=== PATIENT | female | born 1985 | race African-American/Black ===

== ENCOUNTER 2020-07-08 13:07 | Emergency (ER) | payer MEDICARE, MEDICAID, SELFPAY ==
--- NOTE | ~2020-07-08 | XR_ITS ---
EXAMINATION: XR ankle RT min 3V EXAM DATE: 07/08/2020 13:38 INDICATION: Fell on ice 3 weeks ago, persistent right ankle pain medially. Initial counter. TECHNIQUE: Right ankle frontal, lateral and oblique projections obtained and reviewed. There is no p rior study for comparison. FINDINGS: The right ankle mortise appears intact. There are no acute fractures or dislocations iden tified. There is no subcutaneous gas. The soft tissue is unremarkable. There are no radiopaque fo reign bodies. IMPRESSION: No acute osseous findings. Reviewed, dictated and finalized at location A. POULE FILLER IMPRESSION: No acute osseous findings.
--- NOTE | 2020-07-08 13:17 | ED.GENADULT ---
HPI - General Adult General Chief complaint: Extremity Injury, Lower Stated complaint: right foot injury Time Seen by Provider: 07/08/20 13:17 Source: patient Mode of arrival: ambulatory Limitations: no limitations History of Present Illness HPI narrative: 35-year-old female patient presents to the [facility] with complaints of right foot and ankle pain x3 weeks. Patient states that 3 weeks ago she slipped on the snow and ice and since then she has been having pain to the backside of her right ankle. Patient states has been taking Tylenol for pain but states it has not gotten any better. Denies any numbness or tingling to the toes. Related Data Home Medications Medication Instructions Recorded Confirmed lamotrigine 200 mg PO DAILY 07/08/20 07/08/20 trazodone 150 mg PO HS 07/08/20 07/08/20 Allergies Allergy/AdvReac Type Severity Reaction Status Date / Time No Known Allergies Allergy Unknown Verified 07/08/20 13:13 Review of Systems Review of Systems: Narrative: CONSTITUTIONAL: Denies fever, chills, or sweats. EYES: Denies visual changes, redness, or discharge. ENT: Denies rhinorrhea, congestion, sore throat, or otalgia. CARDIOVASCULAR: Denies chest pain, palpitations, or edema. RESPIRATORY: Denies cough or dyspnea. GASTROINTESTINAL: Denies abdominal pain, nausea, vomiting, or diarrhea. GENITOURINARY: Denies dysuria or hematuria. SKIN: Denies rash or itching. MUSCULOSKELETAL: Denies back pain, joint pain, or myalgia. Positive right foot and ankle pain x3 weeks NEUROLOGIC: Denies headache, numbness, or weakness. PSYCHIATRIC: Denies anxiety or depression. COUNT INCLUDES THE [facility] Past Medical History Medical History (Updated 07/08/20 @ 14:00 by LISSETTE Conteh) Bipolar disorder On disability GERD (gastroesophageal reflux disease) Hypertension Surgical History Surgical History (Updated 07/08/20 @ 13:18 by LISSETTE Conteh) H/O LEEP H/O tubal ligation Comments At the time of my signature I agree with nursing past medical history, surgical, social, and family history. There is no relevant family history pertinent to the presenting complaint. Exam Narrative: Exam Narrative: GENERAL: Well-appearing, well-nourished, and in no acute distress. HEAD: Normocephalic, atraumatic. EYES: PERRLA and EOMI. ENT: Nares clear, no rhinorrhea or epistaxis. Mucous membranes moist. NECK: Supple. No lymphadenopathy CHEST: Clear to auscultation. No respiratory distress. HEART: Regular rate and rhythm. No murmur heard. Normal peripheral pulses. ABDOMEN: Soft, nontender, nondistended, normal active bowel sounds. EXTREMITIES patient is able to bear weight and ambulate but has increased pain to the right ankle. The R ankle is without obvious asymmetry or deformity when compared to the L ankle. Patient can flex/extend, invert/tyesha. No obvious surface trauma, ecchymosis, or soft tissue swelling. No body tenderness to palpation over the medial or lateral malleolus. Anterior talofibular ligament, posterior talofibular ligament, calcaneofibular ligament nontender and without swelling. No tenderness or deformity of the midfoot or over the proximal fifth metatarsal. Patient does have slight tenderness noted over the Achilles tendon. Good DP and posterior tibial pulses and sensation to light touch normal. Talar tilt test is negative for ligament laxity to valgus or vargus stress. Negative anterior draw. Peroneal nerve is intact with strong eversion and plantar flexion. SKIN: Warm, dry, no rash. NEURO: No focal deficits. Alert and oriented x3. Course Reevaluation(s) Reevaluation #1: Reevaluated patient after her x-ray had resulted. Notified her that her x-ray is negative for any acute fractures. Discussed with her this is most likely a sprain which can take a little while to heal fully. Encourage patient to stay off the ankle for a while to help with healing and she can continue taking Tylenol, ibuprofen as needed for pain and encouraged her to elevate
[2020-07-08 13:26] VITALS: BP 150/95; PULSE 96; RESP 16; TEMP 36.2; O2SAT 98
== END 2020-07-08 14:05 | disposition home or self-care (01) ==
PROVIDERS: Emergency Provider Nurse Practitioner Family; PCP Internal Medicine Infectious Disease
DX: S93.401A Sprain of unspecified ligament of right ankle, initial encounter (principal); W00.0XXA Fall on same level due to ice and snow, initial encounter; F31.9 Bipolar disorder, unspecified; K21.9 Gastro-esophageal reflux disease without esophagitis; I10 Essential (primary) hypertension
CPT/HCPCS: 73610; 99213; G0463

== ENCOUNTER 2022-09-09 08:42 | Emergency (ER) | payer MEDICARE, MEDICAID, SELFPAY ==
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
[2022-09-09 08:52] VITALS: BP 126/72; PULSE 92; RESP 16; TEMP 36.7; O2SAT 99
[2022-09-09 08:53] VITALS: BP 126/72; PULSE 92; RESP 16; TEMP 36.7; O2SAT 99
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
== END 2022-09-09 09:22 | disposition home or self-care (01) ==
PROVIDERS: Emergency Provider Nurse Practitioner; PCP Internal Medicine Infectious Disease
DX: S00.83XA Contusion of other part of head, initial encounter (principal); S02.5XXA Fracture of tooth (traumatic), initial encounter for closed fracture; W21.05XA Struck by basketball, initial encounter; F17.290 Nicotine dependence, other tobacco product, uncomplicated; J45.909 Unspecified asthma, uncomplicated; K21.9 Gastro-esophageal reflux disease without esophagitis; I10 Essential (primary) hypertension; F31.9 Bipolar disorder, unspecified
CPT/HCPCS: 70150; 99213; G0463

== ENCOUNTER 2022-10-14 11:26 | Outpatient (CLI) | payer MEDICARE, MEDICAID, SELFPAY ==
--- NOTE | 2022-10-14 11:40 | ECG_ITS ---
Measurements Intervals [place] Rate: 74 P: 46 VA: 190 QRS: 30 QRSD: 100 T: 22 QT: 379 QTc: 422 Interpretive Statements SINUS RHYTHM NO PREVIOUS ECG AVAILABLE FOR COMPARISON Electronically Signed On 10-14-2022 17:07:50 CDT by Saba Perez M.D.
[2022-10-14 12:00] LABS: Hematocrit 43.4 % (37.0-47.0); Mean Corpuscular HGB Conc 32.3 g/dl (32-36); Mean Corpuscular Hemoglobin 30.4 pg (26-34); Mean Corpuscular Volume 94.3 fl (80-100); Mean Platelet Volume 10.1 fl (7.4-10.4); Platelet Count Result 227 k/mm3 (150-375); Red Cell Distribution Width 13.1 % (11.5-14.5); White Blood Count 8.8 K/mm3 (4.5-10.0)
[2022-10-14 12:20] LABS: Anion Gap 8 mmol/L (8-16); Blood Urea Nitrogen 14 mg/dL (7-17); Calcium 9.1 mg/dL (8.4-10.2); Carbon Dioxide 29 mmol/L (22-30); Chloride 100 mmol/L (98-107); Estimated Glomerular Filt Rate > 60; Glucose 99 mg/dL (65-110); Potassium 3.8 mmol/L (3.4-5.0); Sodium 137 mmol/L (137-145)
== END 2022-10-14 11:27 | disposition home or self-care (01) ==
LOC: ANHSURGERY 11:31
PROVIDERS: Anesthesiology; PCP Internal Medicine Infectious Disease; Visit Provider Obstetrics & Gynecology
DX: Z01.818 Encounter for other preprocedural examination (principal); D25.9 Leiomyoma of uterus, unspecified; I10 Essential (primary) hypertension; Z79.899 Other long term (current) drug therapy
CPT/HCPCS: 36415; 80048; 85027; 86850; 86900; 86901; 93005

== ENCOUNTER 2022-10-16 01:45 | Day surgery (SDC) | payer MEDICARE, MEDICAID, SELFPAY ==
[2022-10-08 14:31] VITALS: BMI 34.1
--- NOTE | 2022-10-08 14:36 | PC.NURSE ---
Report to the Outpatient Waiting Room, entrance under the green pavilion located off [facility], at time 6:00 on date 10/16/22. Planned Procedure Time: 7:30. Time changes happen often and if your time is changed the preop area will call you the afternoon before. - You and your visitor will be asked to self-screen and do not enter if you have any COVID symptoms. - A mask is optional within the hospital at this time. Patients may have clear liquids (water, carbonated beverages, clear teas, apple juice) until 3 hours prior to surgery (4:30) with a maximum of 20 ounces. - No food from midnight until time of surgery Take the following medications with a SIP of water the morning of surgery: ARIPIPRAZOLE, GABAPENTIN, LAMOTRIGINE, PAIN PILL IF NEEDED DO NOT STOP ANY OF YOUR OTHER PRESCRIPTION MEDICATIONS PRIOR TO SURGERY?EXCEPT THE FOLLOWING Medications to discontinue per physician: IBUPROFEN Date to take last dose: PER DR. ANGUIANO Please no make-up, nail irish, hairspray, perfume, deodorant, or body powder the day of surgery. No jewelry (including any body piercings) or valuables the day of surgery, leave them at home. Please take a shower or bath the night before, or the morning of, surgery with an antibacterial soap. Wear comfortable, loose fitting clothing. - Jewelry must be removed prior to entering the operating room. Rings and piercings that are not removed may be cut off. - The hospital will not accept responsibility for valuables. - Please leave all valuables, including medications, at home the day of surgery. If you are going home after surgery, a licensed bookmobile driver must drive you home. - NO public transportation without another adult if you receive anesthesia. - We recommend that an adult stay with you for 24 hours following discharge. - We also recommend that you do not drive, make important decision, drink alcoholic beverages, or take any drugs that were not prescribed by your health care provider for at least 24 hours after your discharge time. Follow any additional instructions given to you from your surgeon. If you or anyone in your household have experienced Covid symptoms in the past week, please notify your surgeon or the nurse liaison at the phone number below for possible testing. Telephone instructions given to PT - RADHA CHAHAL and asked if any additional questions and then verbalized understanding. Patient advised to call surgeon office or pre surgery nurse liaison [phone] if any additional questions.
--- NOTE | 2022-10-13 16:21 | PM.IMHP ---
H&P: HPI History of Present Illness Date/Time: 10/13/22 16:21 37-year-old 3 para 2 012 presents with complaints of irregular vaginal bleeding and pelvic pain. She has had a longstanding history of irregular bleeding and had undergone endometrial ablation in the past which had worked nicely for her until the last 10-12 months. Increased bleeding with clotting has recurred and she strongly desires intervention for this. Also ultrasound did show a fibroid uterus and fibroid being approximately 2-3 cm and impinging on the endometrial cavity likely causing the bleeding status post ablation. We have discussed non surgical and non permanent surgical interventions and she does not desire. Ultrasound did show uterus to be at [id number] with 3cm uterine fibroid. Endometrial thickness normal at 6mm. Chief Complaint: vaginal bleeding and pelvic pain Review of Systems Review of Systems: All systems reviewed & are unremarkable except as noted in HPI and below PMFSH Past Medical History Medical History Abnormal Pap smear of cervix 12/2009 ascus hpv negative/06/2008 LEEP- [facility]ARO 05/09/2008 colpo chronic cervicitis 03/2008LGSIL HPV+ 2005 lgsil Asthma Back pain Bipolar disorder On disability Encounter for screening for malignant neoplasm of cervix Facial contusion Fracture of tooth GERD (gastroesophageal reflux disease) Hypertension PCR DNA positive for HSV1 Trichomonas vaginalis infection Vaginal delivery 12/10/07 09/30/12 demise at 18w--hydrops 12/25/14 Surgical History Surgical History H/O LEEP 06/13/08 AMPARO I History of colposcopy with cervical biopsy 11/01/07 no bx taken--benign 05/08/08 benign History of gynecologic surgery (08/28/16) hscope d&c/Novasure ablation/tubal ligation--menometrorrhagia, dysmenorrhea, undesired fertility--acute chronic endometritis History of tubal ligation (08/28/16) Family History Family History Father Diabetes mellitus Heart disease Hypertension Grandparent Diabetes mellitus paternal grandmother Other Diabetes mellitus paternal aunt Social History Social History Years smoked: 25 Smoking status: Current every day smoker Tobacco type: e-cigarettes/vaping Alcohol intake: current Alcohol use details: VERY RARE Substance use: never Substance use type: does not use Living arrangements: with family Additional living arrangements comments: CHILDREN Occupation/Education: unemployed Additional occupation/education comments: disablility Gender identity (if verbalized by the patient): Female Sexual Orientation (if Verbalized by the Patient): Straight or Heterosexual Spiritual care concerns: No Meds Home Medications and Allergies Home Medications Medication Instructions Recorded Confirmed Type lamotrigine 100 mg tablet,extended 200 mg PO DAILY 07/08/20 10/08/22 History release 24 hr trazodone 50 mg tablet 150 mg PO HS 07/08/20 10/08/22 History gabapentin 300 mg capsule 300 mg PO TID 05/27/22 10/08/22 History hydrochlorothiazide 25 mg tablet 25 mg PO DAILY 05/27/22 10/08/22 History progesterone micronized 100 mg 100 mg PO QHS #30 caps 07/24/22 10/08/22 Rx capsule (Prometrium) aripiprazole 5 mg tablet 5 mg PO DAILY 08/26/22 10/08/22 History hydrocodone 10 mg-acetaminophen 0.5 - 1 tablet PO TID PRN pain #12 09/09/22 10/08/22 Rx 325 mg tablet tabs ibuprofen 800 mg tablet 800 mg PO TID PRN pain #15 tabs 09/09/22 10/08/22 Rx Allergies Allergy/AdvReac Type Severity Reaction Status Date / Time No Known Allergies Allergy Unknown Verified 10/08/22 14:29 Exam Const: General: cooperative and healthy appearing Resp: Effort & Inspection: normal respiratory effort Auscultation: cl
[2022-10-16] VITALS (10 sets, daily range): BP systolic 117–137; BP diastolic 71–89; PULSE 78–93; RESP 14–18; TEMP 36.4–37.1; O2SAT 96–100
[2022-10-16] MEDS: ACETAMINOPHEN 500 MG TABLET 1000 MG PO (06:36)
[2022-10-16] MEDS: KETOROLAC 15 MG/ML VIAL (*BKC) IV PUSH (06:51)
[2022-10-16] MEDS: LACTATED RINGERS 1,000 ML 30 ML IV CONT ×2 (07:00→10:19)
--- NOTE | 2022-10-16 07:22 | WPDANESEPPF ---
Anes - Initial Pre Proc Eval Procedure: Operation Date: 10/16/22 08:30 Proposed Procedures p Robotic Assisted Total Laparoscopic Hysterectomy with Bilateral Salpingectomy - Jose Shahid MD Date/Time: 10/16/22 07:22 Surgeon: Jose Shahid MD Pre Op Diagnosis: Uterine Fibroid Patient Data Age: 37 Gender: F Height: 1.65 m Weight: 87 kg Last Vital Signs Temp 37.0 C 10/16/22 06:15 Pulse 78 10/16/22 06:15 Resp 16 10/16/22 06:15 BP 126/82 10/16/22 06:15 Pulse Ox 100 10/16/22 06:15 O2 Del Method Room Air 10/16/22 06:15 Allergies Allergy/AdvReac Type Severity Reaction Status Date / Time No Known Allergies Allergy Unknown Verified 10/16/22 06:37 Home Medications Medication Instructions Recorded Confirmed Type lamotrigine 100 mg tablet,extended 200 mg PO DAILY 07/08/20 10/16/22 History release 24 hr trazodone 50 mg tablet 150 mg PO HS 07/08/20 10/16/22 History gabapentin 300 mg capsule 300 mg PO TID 05/27/22 10/16/22 History hydrochlorothiazide 25 mg tablet 25 mg PO DAILY 05/27/22 10/16/22 History progesterone micronized 100 mg 100 mg PO QHS #30 caps 07/24/22 10/16/22 Rx capsule (Prometrium) aripiprazole 5 mg tablet 5 mg PO DAILY 08/26/22 10/16/22 History ibuprofen 800 mg tablet 800 mg PO TID PRN pain #15 tabs 09/09/22 10/16/22 Rx Patient hx anesthesia problems: none Family hx anesthesia problems: none Results Review: All pre-operative results and documents have been reviewed as part of the pre-operative evaluation. [facility] Past Medical History Medical History Abnormal Pap smear of cervix 12/2009 ascus hpv negative/06/2008 LEEP- LGSIL AMPARO 05/09/2008 colpo chronic cervicitis 03/2008LGSIL HPV+ 2005 lgsil Asthma Back pain Bipolar disorder On disability Encounter for screening for malignant neoplasm of cervix Facial contusion Fracture of tooth GERD (gastroesophageal reflux disease) Hypertension PCR DNA positive for HSV1 Trichomonas vaginalis infection Vaginal delivery 12/10/07 09/30/12 demise at 18w--hydrops 12/25/14 Surgical History Surgical History H/O LEEP 06/13/08 AMPARO I History of colposcopy with cervical biopsy 11/01/07 no bx taken--benign 05/08/08 benign History of gynecologic surgery (08/28/16) hscope d&c/Novasure ablation/tubal ligation--menometrorrhagia, dysmenorrhea, undesired fertility--acute chronic endometritis History of tubal ligation (08/28/16) Family History Family History Father Diabetes mellitus Heart disease Hypertension Grandparent Diabetes mellitus paternal grandmother Other Diabetes mellitus paternal aunt Social History Social History Years smoked: 25 Smoking status: Current every day smoker Tobacco type: e-cigarettes/vaping Alcohol intake: current Alcohol use details: VERY RARE Substance use: never Substance use type: does not use Living arrangements: with family Additional living arrangements comments: CHILDREN Occupation/Education: unemployed Additional occupation/education comments: disablility Gender identity (if verbalized by the patient): Female Sexual Orientation (if Verbalized by the Patient): Straight or Heterosexual Spiritual care concerns: No Anes - Eval Final PreProcedure Day of Procedure 10/16/22 07:22 Patient weight: obese Heart: regular rate and rhythm Lungs: clear to auscultation and normal air movement Airway: Mallampati scale class II Neurological: alert and oriented Last oral intake: >/= 8 hours ASA classification: III Emergent: no Anesthetic plan: proceed Anesthesia type and monitoring: general ETT Results Review: All pre-operative results and documents have been reviewed as part of the pre-operative evalu
--- NOTE | 2022-10-16 07:27 | WPDHPUPDATE1 ---
History and Physical Update Update Date/Time: 10/16/22 07:27 History and Physical has been reviewed, including an updated exam of the patient. There are NO changes in the patient's condition. Risks, benefits, and alternatives have been discussed and questions answered. Patient agrees to proceed with procedure.
[2022-10-16] MEDS: ceFAZolin 2 GM/D5W 50 ML 2 GM/50 ML BAG IVPB (08:26)
--- NOTE | 2022-10-16 10:06 | W.PM.PROC2 ---
Procedure Note - Detailed Date of Procedure 10/16/22 Pre-op Diagnosis 1. Pelvic pain 2. Uterine fibroid 3. History of endometrial ablation Post-op Diagnosis Same Procedure Performed 1. Robotic assisted total laparoscopic hysterectomy 2. Bilateral salpingectomy Surgeon Jose Shahid MD Anesthesia General Findings Enlarged globular uterus with evidence of prior partial salpingectomy. Ovaries without abnormality. Description of Procedure Patient prepped and draped usual sterile manner for this procedure. Cervical instruments were placed for uterine mobility throughout the case. Attention was then placed the abdominal wall were trocar sites were marked and placed under direct visualization. These trocars were then attached to the [employer] system and instruments were placed under direct visualization. Surgeon then moved to the console and findings as noted above. Mesial salpinx bilaterally cauterized and cut and tubes removed without difficulty. Utero-ovarian ligaments were cauterized and cut and the round ligament was then cauterized and cut. Bladder flap was developed without difficulty. Posterior leaf the broad ligament was also incised to skeletonized the uterine vessels. Uterine vessels then cauterized and cut and transected. At this point once the blood flow to the uterus had been taken down the anterior colpotomy incision was made this was carried circumferentially around the cervix to separate the cervix from the vaginal cuff. Uterus was delivered into the vagina without difficulty. Cuff was then closed using V lock suture from the right angle to midline and left angle midline with good approximation hemostasis noted. Irrigation was undertaken there was no significant bleeding. Helen was placed over all the surgical edges and at this point the gas was allowed to escape, trocars removed, and incisions approximated using 4-0 Monocryl. Patient was then sent to recovery room in stable condition. Estimated Blood Loss 100 Drains No Packing No Pathology Yes Complications No immediate complications Condition Stable Disposition PACU [facility] Billing Surgery - Charge Forward: Surgery Billing
[2022-10-16] MEDS: fentaNYL CITRATE INJ (*CRX) 100 MCG/2 ML VIAL 25 MCG IV PUSH ×8 (10:20→10:34)
--- NOTE | 2022-10-16 11:00 | PC.NURSE ---
This patient, Ronda Morris, was received from PACU via bed on 10/16/22 at 1100. Patient/family oriented to unit policies and routines.
[2022-10-16] MEDS: DEXTROSE 5%/0.45% SOD CHL 1,000 ML 125 ML IV CONT (12:02)
[2022-10-16] MEDS: IBUPROFEN 600 MG TABLET PO ×2 (13:28→20:06)
[2022-10-16] MEDS: GABAPENTIN 300 MG CAPSULE PO ×2 (13:28→20:06)
[2022-10-16] MEDS: HYDROcodone/acetaminophen (*CRX) 5-325 MG TABLET 1 TAB PO (20:06)
[2022-10-16] MEDS: ARIPiprazole 5 MG TABLET PO (22:08)
[2022-10-16] MEDS: lamoTRIgine 100 MG TABLET PO (22:08)
[2022-10-16] MEDS: traZODone HCL 50 MG TABLET 150 MG PO (22:08)
[2022-10-17] MEDS: IBUPROFEN 600 MG TABLET PO (05:13)
[2022-10-17 05:15] VITALS: BP 105/69; PULSE 69; RESP 18; TEMP 36.5
[2022-10-17 05:57] LABS: Basophils Percent Auto 0.1 % (0.2-1.2); Eosinophils Percent Auto 0.3 % (0-4.4); Hematocrit 38.5 % (37.0-47.0); Hemoglobin 12.8 g/dL (12.0-15.0); Immature Granulocyte Absolute 0.05 K/mm3 (0.00-0.031); Immature Granulocyte Percent A 0.4 % (0-0.5); Lymphocytes Absolute Auto 3.14 K/mm3 (0.9-3.2); Lymphocytes Percent Auto 22.4 % (18.3-44.2); Mean Corpuscular HGB Conc 33.2 g/dl (32-36); Mean Corpuscular Hemoglobin 31.1 pg (26-34); Mean Corpuscular Volume 93.7 fl (80-100); Mean Platelet Volume 10.4 fl (7.4-10.4); Monocytes Percent Auto 7.4 % (2.6-8.5); Neutrophils Absolute Auto 9.7 K/mm3 (1.3-6.7); Neutrophils Percent Auto 69.4 % (45.5-73.1); Platelet Count Result 228 k/mm3 (150-375); Red Blood Count 4.11 M/mm3 (4.2-5.4); Red Cell Distribution Width 13.2 % (11.5-14.5)
[2022-10-17 08:00] VITALS: BP 100/60; PULSE 88; RESP 18; TEMP 37.1; O2SAT 100
[2022-10-17] MEDS: lamoTRIgine 100 MG TABLET PO (08:45)
[2022-10-17] MEDS: GABAPENTIN 300 MG CAPSULE PO (08:45)
[2022-10-17] MEDS: SIMETHICONE 80 MG TAB.CHEW PO (08:45)
[2022-10-17] MEDS: ACETAMINOPHEN 325 MG TABLET 650 MG PO (08:45)
[2022-10-17] MEDS: hydroCHLOROthiazide 25 MG TABLET PO (08:45)
--- NOTE | 2022-10-17 12:57 | P.PNAN_ITS ---
Anes - Prog Note Post-Op Date/Time: 10/17/22 12:57 Vital Signs: Last Vital Signs Temp 37.1 C 10/17/22 08:00 Pulse 88 10/17/22 08:00 Resp 18 10/17/22 08:00 BP 100/60 10/17/22 08:00 Pulse Ox 100 10/17/22 08:00 O2 Del Method Room Air 10/16/22 10:50 O2 Flow Rate 10 10/16/22 10:15 Pain Score (VAS): 1 I/O: Intake & Output 10/16/22 10/17/22 10/17/22 23:59 07:59 15:59 Intake Total 740 Output Total 800 Balance -60 Laboratory Tests 10/17/22 05:12 10/17/22 05:12 WBC 14.0 H RBC 4.11 L Hgb 12.8 Hct 38.5 MCV 93.7 MCH 31.1 MCHC 33.2 RDW 13.2 Plt Count 228 MPV 10.4 Immature Gran % (Auto) 0.4 Neut % (Auto) 69.4 Lymph % (Auto) 22.4 Lanier % (Auto) 7.4 Eos % (Auto) 0.3 Baso % (Auto) 0.1 L Lymph # (Auto) 3.14 Lanier # (Auto) 1.0 H Eos # (Auto) 0.0 Baso # (Auto) 0.0 Abs Immat Gran (auto) 0.05 H Absolute Neuts (auto) 9.7 H Absolute Nucleated RBC 0.0 Nucleated RBC % 0.0 Patient Feedback: Patient satisfied with anesthetic care.
== END 2022-10-17 10:15 | disposition home or self-care (01) ==
LOC: ANHSURGERY 05:58 → ANHOB2 17:34
PROVIDERS: PCP Internal Medicine Infectious Disease; Visit Provider Obstetrics & Gynecology
PROC: (CPT 58571; principal; 2022-10-16 08:30)
DX: D25.0 Submucous leiomyoma of uterus (principal); N87.9 Dysplasia of cervix uteri, unspecified; N83.8 Other noninflammatory disorders of ovary, fallopian tube and broad ligament; N80.203 Endometriosis of bilateral fallopian tubes, unspecified depth; R10.2 Pelvic and perineal pain; N92.6 Irregular menstruation, unspecified; I10 Essential (primary) hypertension; J45.909 Unspecified asthma, uncomplicated; F31.9 Bipolar disorder, unspecified; K21.9 Gastro-esophageal reflux disease without esophagitis; B00.9 Herpesviral infection, unspecified; F17.290 Nicotine dependence, other tobacco product, uncomplicated
CPT/HCPCS: 58571; S2900; 36415; 85025; 88307; A9270; J0690; J1100; J1170; J1885; J2250; J2405; J2704; J3010; J7030; J7120

== ENCOUNTER 2023-05-27 08:27 | Emergency (ER) | payer MEDICARE, MEDICAID, SELFPAY ==
--- NOTE | ~2023-05-27 | XR_ITS ---
XR ankle LT min 3V 05/27/2023 08:47 INDICATION: Left ankle pain PROCEDURE: 4 views left ankle COMPARISON: No prior studies for comparison. FINDINGS: Fracture, dislocation or subluxation is not identified. The soft tissues appear within norm al limits. No foreign bodies are identified. IMPRESSION: 1: NO ACUTE BONE OR JOINT ABNORMALITY IDENTIFIED. Reviewed, dictated and finalized at location B. TECHNICIAN
[2023-05-27 08:35] VITALS: BP 123/77; PULSE 81; RESP 16; TEMP 36.9; O2SAT 100
--- NOTE | 2023-05-27 08:37 | ED.LOWEXIN ---
HPI - Extremity Injury (Lower) General Chief Complaint: Extremity Injury, Lower Stated Complaint: left ankle/foot injury Time Seen by Provider: 05/27/23 08:38 Source: patient Mode of arrival: ambulatory Limitations: no limitations History of Present Illness HPI Narrative: 38 yo F presents with pain to L ankle for 2 days. Slipped and fell on ice. Fell onto L side, no other complaints of pain. Ambulatory with mild limp. ROM and distal NV intact. All systems reviewed and negative except as noted above. Related Data Home Medications Medication Instructions Recorded Confirmed lamotrigine 100 mg tablet,extended 200 mg PO DAILY 07/08/20 05/27/23 release 24 hr trazodone 50 mg tablet 50 mg PO HS 07/08/20 05/27/23 gabapentin 300 mg capsule 300 mg PO TID 05/27/22 05/27/23 hydrochlorothiazide 25 mg tablet 25 mg PO DAILY 05/27/22 05/27/23 aripiprazole 5 mg tablet 5 mg PO DAILY 08/26/22 05/27/23 azelastine 137 mcg (0.1 %) nasal 2 spray intranasal BID 05/27/23 05/27/23 spray aerosol Allergies Allergy/AdvReac Type Severity Reaction Status Date / Time No Known Allergies Allergy Unknown Verified 05/27/23 08:43 Review of Systems Review of Systems: CONSTITUTIONAL: Denies fever, chills, or sweats. EYES: Denies visual changes, redness, or discharge. ENT: Denies rhinorrhea, congestion, sore throat, or otalgia. CARDIOVASCULAR: Denies chest pain, palpitations, or edema. RESPIRATORY: Denies cough or dyspnea. GASTROINTESTINAL: Denies abdominal pain, nausea, vomiting, or diarrhea. GENITOURINARY: Denies dysuria or hematuria. SKIN: Denies rash or itching. MUSCULOSKELETAL: Reports pain to L ankle NEUROLOGIC: Denies headache, numbness, or weakness. PSYCHIATRIC: Denies anxiety or depression. All other systems reviewed are negative, except as documented in HPI. 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 lgsil Asthma Back pain Bipolar disorder On disability Encounter for screening for malignant neoplasm of cervix Facial contusion Fracture of tooth GERD (gastroesophageal reflux disease) Hypertension PCR DNA positive for HSV1 Trichomonas vaginalis infection Vaginal delivery 12/10/07 09/30/12 demise at 18w--hydrops 12/25/14 Surgical History Surgical History H/O LEEP 06/13/08 AMPARO I History of colposcopy with cervical biopsy 11/01/07 no bx taken--benign 05/08/08 benign History of gynecologic surgery (08/28/16) hscope d&c/Novasure ablation/tubal ligation--menometrorrhagia, dysmenorrhea, undesired fertility--acute chronic endometritis History of robot-assisted laparoscopic hysterectomy (10/16/22) Robotic assisted total laparoscopic hysterectomy Bilateral salpingectomy History of tubal ligation (08/28/16) Family History Family History Father Diabetes mellitus Heart disease Hypertension Grandparent Diabetes mellitus paternal grandmother Other Diabetes mellitus paternal aunt Social History Social History Years smoked: 25 Smoking status: Current every day smoker Tobacco type: e-cigarettes/vaping Alcohol intake: current Alcohol use details: VERY RARE Substance use: never Substance use type: does not use Living arrangements: with family Additional living arrangements comments: CHILDREN Occupation/Education: unemployed Additional occupation/education comments: disablility Gender identity (if verbalized by the patient): Female Sexual Orientation (if Verbalized by the Patient): Straight or Heterosexual Spiritual care concerns: No Comments At time of signature, agree with nursing past medical, surgical, so
== END 2023-05-27 09:11 | disposition home or self-care (01) ==
PROVIDERS: Emergency Provider Nurse Practitioner Family; PCP Internal Medicine Infectious Disease
DX: S93.402A Sprain of unspecified ligament of left ankle, initial encounter (principal); W00.0XXA Fall on same level due to ice and snow, initial encounter; F17.290 Nicotine dependence, other tobacco product, uncomplicated; J45.909 Unspecified asthma, uncomplicated; K21.9 Gastro-esophageal reflux disease without esophagitis; I10 Essential (primary) hypertension
CPT/HCPCS: 73610; 99213; G0463

== ENCOUNTER 2024-06-04 17:08 | Emergency (ER) | payer MEDICARE, MEDICAID, SELFPAY ==
--- NOTE | ~2024-06-04 | XR_ITS ---
EXAM: XR wrist LT min 3V DATE: 06/04/2024 18:20 HISTORY: injury bent backward . COMPARISON: None available. FINDINGS: Normal mineralization. No fracture or dislocation. No lytic or blastic lesion. Joint space s are maintained. No erosion or periosteal change. Soft tissues within normal limits. IMPRESSION: No acute osseous finding in the left wrist. Reviewed, dictated and finalized at location K. GENCY MANAGER
--- OUTSIDE RECORDS SUMMARY | 2024-06-04 17:12 | XMS_ITS | Data Portability ---
Author Organization [facility] JOSESandra Contreras Address [address] [place] [address] Care Team Providers Care Terrazzo Laborer Name Role Phone [facility] Psychiatrist OSIEL ANGUIANO Software Analyst Assessment No assessment recorded. Plan of Treatment Reminders Order Date Submit Date Provider Last Modified By Organization Details Last Modified Time Details Appointments ANY 15 2024 09:15A Lianne Still MD Not available Not available Not available Lab TSH, ultra-s ensitiv e, serum 2021 022 [facility], [facility] [address], [place], [address], 03/13/2022 06:12:25 bun/cre atinine , ratio, serum 2021 022 [facility], [facility], [address], [place], [address], 03/13/2022 06:12:26 HbA1c (hemogl obin A1c), blood 2022 023 [facility], Hay[address], [address], [place], [address], 09/09/2022 06:15:12 CBC 2022 023 [facility], Hayley [address]ren[address], [address], [place], [address], 09/08/2022 19:08:15 basic metabol ic 1998 panel, serum or plasma 2022 023 [facility], [address] [place] [address], [address], [place], [address], 09/15/2022 10:55:54 HbA1c (hemogl obin A1c), blood 2022 023 [facility], [address] [place] [address], [address], [place], [address], 03/26/2023 08:19:22 potassi um, serum or plasma 2022 023 [facility], [address] [place] [address], [address], [place], [address], 03/26/2023 06:17:23 SARS CoV 2 RNA (COVID- 19), QL, vegetable loader-PCR , respira tory specime n [address] [facility], [address] [place], [address], 03/25/2023 12:45:22 TSH, ultra-s ensitiv e, serum 2022 023 [facility], [address] [place] [address], [address], [place], [address], 03/26/2023 08:19:23 HbA1c (hemogl obin A1c), blood 2023 024 [facility], [address] [place] [address], [address], [place], [address], 06/03/2024 15:51:54 urinaly sis macro (dipsti ck) panel, urine 2023 024 [facility], [address] [facility], [address], [place], [address], 06/03/2024 15:51:54 CMP, serum or plasma 2023 024 [facility], [address] [facility], [address], [place], [address], 05/24/2024 15:19:19 lipid panel, serum 2023 024 [facility], [address], [address], [place], [address], 2024 14:06:54 CBC w/ auto diff 2023 024 [facility], [address] [place] [address], [address], [place], [address], 2024 14:06:55 TSH, ultra-s ensitiv e, serum 2023 024 [facility], [address] [place] [address], [address], [place], [address], 06/03/2024 15:51:54 Referral nutriti onist/d ietitia n referra l 2021 022 [facility] Nutrition/ Securities Counselor, [address] [place], [address], 09/08/2022 09:59:50 nutriti onist/d ietitia n referra l - Pre-DM, weight gain, BMI 38.8 2023 024 [facility] Healthcare Painter Hand Nutrition Dietitian, [address] [place] [address], [address], 05/30/2024 15:36:05 sleep medicin e referra l 2023 024 [facility], [address] [facility], [place], [address], 05/30/2024 15:36:44 Procedures None recorde d. Surgeries None recorde d. Imaging None recorde d. Medication Orders hydroch lorothi azide 25 mg tablet [address] [id number], [address] , [place], [place], [id number], 09/08/2022 10:38:09 azelast ine 137 mcg (0.1 %) nasal spray 2022 023 [id number], [address] , [place], [place], [id number], 03/25/2023 12:49:52 Patient TargetsNo targets recorded. Patient Instructions Encounter Date Encounter Id Patient Instructions Last Modified By Organization Details Last Modified Time 03/12/2022 [id number] prediabetes: car e instructions oajao Not available 03/12/2022 10:01:40 Low fat, low CHO diet Avoid soda and sugary drinks Labs Multi Purpose Machine Operator for Pap (Scheduled) Hand Inspector Follow up in 6 months and PRN oajao Not available 03/12/2022 11:56:01 09/08/2022 [id number] prediabetes: car e instructions oajao Not available 09/08/2022 10:32:19 Labs Follow up i n 6 months and PRN oajao Not available 09/08/2022 10:38:09 11/13/2022 [id number] prediabetes: car e instructions oajao Not available 11/13/2022 10:58:36 Follow up in 6 months and PRN Hand Inspector (Declined) DM diet oajao Not available 11/13/2022 11:08:58 03/25/2023 [id number] influenza (flu) vaccine: care instructions oajao Not available 03/25/2023 14:06:49 upper respirator y infection (cold): care instructions oajao Not available 03/25/2023 12:26:09 learning about mood disorders oajao Not available 03/25/2023 12:29:54 body mass index: care instructions oajao Not available 03/25/2023 12:52:45 learning about healthy weight oajao Not available 03/25/2023 12:52:45 Azelastine NS Labs Follow up in 6 months and PRN oajao Not available 03/25/2023 12:31:05 03/30/2024 [id number] snoring: care instructions oajao Not available 03/30/2024 10:16:01 Labs Nutritionis t close to her in [place], please Follow up in 6 months and PRN oajao Not available 03/30/2024 10:15:53 Reason for Referral Hand Inspector/dietitian Refer ral for Impaired fasting glycemia Referring Physician: Kirk Still, Internal Medicine, Encounter Date: 03/12/2022 Hand Inspector/dietitian Refer ral for Impaired fasting glycemia Pre-DM, weight gain, BMI 38.8 Pre-DM, weight gain, BMI 38.8 Referring Physician: Kirk Still, Internal Medicine, Encounter Date: 03/30/2024 Sleep Medicine Referral for Snoring Snorer with HTN and an Independence score of 13 Referring Physician: Kirk Still, Internal Medicine, Encounter Date: 03/30/2024 Results Created Date Observation Date Name Description Value Unit Range Abnormal Flag Note LastModifiedBy Organization Detail LastModifiedTime 03/12/2003/13/2022 TSH TSH 1.150 uIU/m L 0.450- 4.500 Not Available [facility] ([facility]) [address] [place], [address], 03/13/2022 06:12:25 03/12/2003/13/2022 BUN+C REAT BUN 8 mg/dL 6-20 Not Available [facility] ([facility]) [address] [facility], [place], [address], 03/13/2022 06:12:25 11/09/20 22 03/13/2022 BUN+C REAT creatinine 0.89 mg/dL 0.57-1 .00 Not Available [facility] ([facility]) [address] [facility], [place], [address], 03/13/2022 06:12:25 03/12/20 22 03/13/2022 BUN+C REAT eGFR 87 mL/mi n/1.7 3 >59 Not Available [facility] ([facility]) [address] [facility], [place], [address], 03/13/2022 06:12:25 03/12/20 22 03/13/2022 BUN+C REAT BUN/creatini ne ratio 9 9-23 Not Available [facility] ([facility]) [address] [facility], [place], [address], 03/13/2022 06:12:25 09/09/19 23 09/08/2022 BASIC METAB OLIC PANEL (7) glucose 102 mg/dL 65-99 above high normal Not Available [facility] [address] [place], [address], 09/08/2022 19:08:15 09/09/19 23 09/08/2022 BASIC METAB OLIC PANEL (7) BUN 10 mg/dL 8-26 Not Available [facility] [address] [place], [address], 09/08/2022 19:08:15 09/09/19 23 09/08/2022 BASIC METAB OLIC PANEL (7) creatinine 1.03 mg/dL 0.50-1 .40 Not Available [facility] [address] [place], [address], 09/08/2022 19:08:15 09/09/19 23 09/08/2022 BASIC METAB OLIC PANEL (7) eGFR 72 mL/mi n/1.7 3 >=60 Not Available [facility] [address] [place], [address], 09/08/2022 19:08:15 09/09/19 23 09/08/2022 BASIC METAB OLIC PANEL (7) BUN/creatini ne ratio 9.7 Not Available [facility] Department [address] [place], [address], 09/08/2022 19:08:15 09/09/19 23 09/08/2022 BASIC METAB OLIC PANEL (7) sodium 139.0 mmol/ L 136.0- 144.0 Not Available [facility] [address] [place], [address], 09/08/2022 19:08:15 09/09/19 23 09/08/2022 BASIC METAB OLIC PANEL (7) potassium 4.0 mmol/ L 3.5-5. 3 Not Available [facility] [address] [place], [address], 09/08/2022 19:08:15 09/09/19 23 09/08/2022 BASIC METAB OLIC PANEL (7) chloride 98 mmol/ l 101-11 1 below low normal Not Available [facility] [address] [place], [address], 09/08/2022 19:08:15 09/09/19 23 09/08/2022 BASIC METAB OLIC PANEL (7) carbon dioxide, total 28.9 mmol/ L 21.0-3 2.0 Not Available [facility] [address] [place], [address], 09/08/2022 19:08:15 09/09/19 23 09/08/2022 CBC, PLATE LET, NO DIFFE RENTI AL WBC 11.8 K/uL 3.4-10 .8 above high normal Not Available [facility] [address] [place], [address], 09/08/2022 19:08:15 09/09/19 23 09/08/2022 CBC, PLATE LET, NO DIFFE RENTI AL RBC 4.8 M/uL 4.2-5. 4 Not Available [facility] [address] [place], [address], 09/08/2022 19:08:15 09/09/1909/08/2022 CBC, PLATE LET, NO DIFFE RENTI AL hemoglobin 14.4 g/dL 11.5-1 5.5 Not Available [facility] [address] [place], [address], 09/08/2022 19:08:15 09/09/1909/08/2022 CBC, PLATE LET, NO DIFFE RENTI AL hematocrit 44.8 % 36.0-4 8.0 Not Available [facility] [address] [place], [address], 09/08/2022 19:08:15 09/09/1909/08/2022 CBC, PLATE LET, NO DIFFE RENTI AL MCV 93 fL 80-95 Not Available [facility] [address] [place], [address], 09/08/2022 19:08:15 09/09/1909/08/2022 CBC, PLATE LET, NO DIFFE RENTI AL MCH 30 pg 27-32 Not Available [facility] [address] [place], [address], 09/08/2022 19:08:15 09/09/1909/08/2022 CBC, PLATE LET, NO DIFFE RENTI AL MCHC 32 g/dL 32-36 Not Available [facility] [address] [place], [address], 09/08/2022 19:08:15 09/09/1909/08/2022 CBC, PLATE LET, NO DIFFE RENTI AL RDW 12.6 % 11.5-1 4.5 Not Available [facility] [address] [place], [address], 09/08/2022 19:08:15 09/09/19 23 09/08/2022 CBC, PLATE LET, NO DIFFE RENTI AL platelets 253 K/uL 155-37 9 MPV 10.8 FL 8.9-1 2.7 N Not Available [facility] [address] [place], [address], 09/08/2022 19:08:15 09/09/19 23 09/08/2022 CBC, PLATE LET, NO DIFFE RENTI AL NRBC 0 % Not Available [facility] [address] [place], [address], 09/08/2022 19:08:15 09/09/1909/08/2022 HEMOG LOBIN A1C hemoglobin A1C 6.2 % 4.8-5. 6 above high normal Predi abete s: 5.7 - 6.4 Diabe tyra: >6.4 Glyce ramses contr ol for adult s with diabe tyra: <7.0 Not Available [facility] ([facility]) [address] [place], [address], 09/09/2022 06:15:12 03/25/2003/26/2023 POTAS SIUM potassium 3.7 mmol/ L 3.5-5. 2 Not Available [facility] ([facility]) [address] [place], [address], 03/26/2023 06:17:23 03/25/20 23 03/26/2023 HEMOG LOBIN A1C hemoglobin A1C 6.4 % 4.8-5. 6 above high normal Predi abete s: 5.7 - 6.4 Diabe tyra: >6.4 Glyce ramses contr ol for adult s with diabe tyra: <7.0 Not Available [facility] ([facility]) [address] [place], [address], 03/26/2023 08:19:22 03/25/20 23 03/26/2023 TSH TSH 1.050 uIU/m L 0.450- 4.500 Not Available [facility] ([facility]) [address], [place], [address], 03/26/2023 08:19:23 09/10/19 23 09/09/2022 XR, facia l bones No observ ation record ed. [facility] [address], [place], [address], 11/13/2022 10:54:53 05/27/19 24 05/27/2023 XR, ankle No observ ation record ed. [facility] [address], [place], [address], 03/30/2024 10:01:27 Result Notes None recorded. 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 504955443 Active 2017 Kirk Still MD Attn: Maynor husain,[address] [place], [address], [place] [facility] 2 09:47:43 Low back pain 403900630 Active 2017 Kirk Still MD Attn: Maynor husain,[address] [place], [address], [facility] 0 15:46:41 Influenza vaccination declined 883877721 Active 2017 Kirk Still MD Attn: Maynor husain,[address] [place], [address], [place] [facility] 0 15:46:41 Nicotine dependence 60888988 Active 2018 Kirk Still MD Attn: Marcusarianna husain,[address] [place] [address], [place], [address], [place] [facility] 0 15:46:41 SARS-CoV-2 mRNA vaccine declined 5017959899 Active 2021 Kirk Still MD Attn: Maynor lisha,[address] [facility], [place], [address], [place] [facility] 2 10:09:14 Impaired fasting glycemia 851552176 Active 2021 Kirk Still MD Attn: Maynor lisha,[address] [place] [address], [place], [address], [place] [facility] 2 10:02:03 Disorder of lipid metabolism 319931427 Active 2021 Kirk Still MD Attn: Maynor lisha,[address] [facility], [place], [address], [place] [facility] 2 10:02:11 Degeneration of lumbar intervertebra l disc 41066658 Active 2021 Kirk Still MD Attn: Maynor lisha,[address] [place] [address], [place], [address], [place] [facility] 2 10:04:44 Family history of diabetes mellitus 571771175 Active 2021 Kirk Still MD Attn: Maynor husain,[address] [facility], [place], [address], [place] [facility] 2 10:12:27 Benign essential hypertension 9301440 Active 2022 Kirk Still MD Attn: Maynor husain,[address] [place] [address], [place], [address], [place] [facility] 3 10:37:23 History of total hysterectomy 974186209 Active 2022 Kirk Still MD Attn: Maynor husain,[address] [facility], [place], [address], [place] [facility] 3 11:09:31 Snoring 04921072 Active 2023 Kirk Still MD Attn: Maynor husain,[address] [facility], [place], [address], [place] [facility] 4 10:16:00 Elevated blood-pressur e reading without diagnosis of hypertension 645920407 Active Kirk Still MD Attn: Maynor husain,[address] [facility], [place], [address], [place] [facility] 0 15:46:41 Tobacco user 052370584 Active Kirk Still MD Attn: Maynor husain,[address] [facility], [place], [address], [place] [facility] 0 15:46:41 Bipolar disorder 71898986 Active Kirk Still MD Attn: Maynor husain,[address] [facility], [place], [address], [place] [facility] 0 15:46:41 Laboratory test result abnormal 613880324 Active Kirk Still MD Attn: Maynor husain,[address] [facility], [place], [address], [place] [facility] 0 15:46:41 Problem Notes None recorded. Procedures Surgical History Date Name Laterality Status Provider Name and Address Organization Details Recorded Time 7 Tubal Ligation completed Robina Rose [place] - [facility] 10/24/2016 16:30:05 Imaging Results Imaging Date Name Status LastModified by Organ atreplaced by [facility] Details LastModified Time 09/09/2022 XR, facial bones completed dejuan Leblanc [address] [place], [address], 11/13/2022 10:54:53 05/27/2023 XR, ankle completed [facility] [address] [facility] [address], [place], [address], 03/30/2024 10:01:27 Procedure Notes None recorded. Medical Equipment None Reported. Allergies No known drug allergies Medications Name Sig Start Date Stop Date Status Note LastModified by Organization Details LastModified Time carisopro dol 350 mg tablet TAKE 1 TABLET BY MOUTH THREE TIMES DAILY 03/12 completed Not Available Not Available Not Available cyclobenz aprine 10 mg tablet 10/24 completed Not Available Not Available Not Available amoxicill in 500 mg capsule 02/16 completed Not Available Not Available Not Available methocarb fadi 500 mg tablet 03/30 completed Not Available Not Available Not Available azelastin e 0.05 % eye drops INSTILL 1 DROP INTO AFFECTED EYE(S) BY OPHTHALM IC ROUTE 2 TIMES PER DAY (L. eye) 02/16 completed Not Available Not Available Not Available clindamyc in HCl 300 mg capsule 11/15 completed Not Available Not Available Not Available trazodone 50 mg tablet TAKE 1 TABLET BY MOUTH DAILY AT BEDTIME NEEDED FOR SLEEP active Not Available Not Available No t Available azithromy katie 250 mg tablet TAKE 2 TABLETS (500 MG) BY ORAL ROUTE ONCE DAILY FOR 1 DAY THEN 1 TABLET (250 MG) BY ORAL ROUTE ONCE DAILY FOR 4 DAYS 11/15 completed Not Available Not Available Not Available ibuprofen 800 mg tablet 11/13 completed Not Available Not Available Not Available hydrocodo ne 5 mg-acetam inophen 325 mg tablet TAKE 1 TABLET BY MOUTH EVERY 3 HOURS NEEDED FOR PAIN 11/13 completed Not Available Not Available Not Available prednison e 20 mg tablet 12/30 completed Not Available Not Available Not Available terconazo le 0.8 % vaginal cream 03/14 completed Not Available Not Available Not Available clindamyc in HCl 150 mg capsule 11/15 completed Not Available Not Available Not Available penicilli n V potassium 500 mg tablet TAKE 1 TABLET BY MOUTH EVERY 6 HOURS FOR 10 DAYS 11/13 completed Not Available Not Available Not Available metronida zole 500 mg tablet 10/24 completed Not Available Not Available Not Available acetamino phen 300 mg-codein e 30 mg tablet 11/15 completed Not Available Not Available Not Available acyclovir 400 mg tablet 02/16 completed Not Available Not Available Not Available hydrocodo ne 10 mg-acetam inophen 325 mg tablet TAKE 1/2 TO 1 TABLET BY MOUTH THREE TIMES DAILY NEEDED FOR PAIN 11/13 completed Not Available Not Available Not Available tramadol 50 mg tablet Take 2 tablets every 8 hours by oral route as needed for 7 days. 10/29 completed Not Available Not Available Not Available guaifenes in 100 mg/5 mL oral liquid Take 10 mL every 4 hours by oral route as needed for 5 days. 11/15 completed Not Available Not Available Not Available amoxicill in 500 mg tablet TAKE 1 TABLET BY MOUTH EVERY 6 HOURS DIRECTED 03/30 completed Not Available Not Available Not Available triflurid ine 1 % eye drops 02/16 completed Not Available Not Available Not Available oxycodone -acetamin ophen 5 mg-325 mg tablet TAKE 1 TABLET BY MOUTH EVERY 6 HOURS NEEDED FOR PAIN 03/12 completed Not Available Not Available Not Available amitripty line 25 mg tablet TAKE 1 TABLET BY MOUTH NIGHTLY NEEDED FOR SLEEP 03/12 completed Not Available Not Available Not Available trazodone 100 mg tablet TAKE 1/2 TO 1 TABLET BY MOUTH AT BEDTIME NEEDED FOR SLEEP active Not Available Not Available No t Available baclofen 10 mg tablet 12/30 completed Not Available Not Available Not Available nitrofura ntoin macrocrys angelica 100 mg capsule 03/14 completed Not Available Not Available Not Available misoprost ol 200 mcg tablet 10/24 completed Not Available Not Available Not Available gabapenti n 300 mg capsule TAKE 1 CAPSULE BY MOUTH THREE TIMES DAILY active Not Available Not Available No t Available diclofena c sodium 75 mg tablet,de layed release Take 1 tablet twice a day by oral route as needed for 10 days. 08/17 completed Not Available Not Available Not Available ampicilli n 250 mg capsule 03/14 completed Not Available Not Available Not Available hydrochlo rothiazid e 25 mg tablet TAKE 1 TABLET BY MOUTH EVERY DAY DIRECTED active Not Available Not Available No t Available azelastin e 137 mcg (0.1 %) nasal spray USE 2 SPRAYS IN EACH NOSTRIL TWICE DAILY NEEDED active Not Available Not Available No t Available ibuprofen 600 mg tablet TAKE 1 TABLET BY MOUTH THREE TIMES DAILY. TAKE WITH FOOD. 03/12 completed Not Available Not Available Not Available methylpre dnisolone 4 mg tablets in a dose pack FOLLOW PACKAGE DIRECTIO NS 03/30 completed Not Available Not Available Not Available lamotrigi ne 100 mg tablet TAKE 2 TABLETS BY MOUTH DAILY active Not Available Not Available No t Available naproxen 500 mg tablet Take 1 tablet twice a day by oral route as needed for 10 days. 03/30 completed Not Available Not Available Not Available progester one micronize d 100 mg capsule TAKE 1 CAPSULE BY MOUTH EVERY DAY AT BEDTIME 11/13 completed Not Available Not Available Not Available amoxicill in 875 mg-potass ium clavulana te 125 mg tablet 03/12 completed Not Available Not Available Not Available aripipraz ole 5 mg tablet TAKE 1 TABLET BY MOUTH DAILY AT NIGHT active Not Available Not Available No t Available nitrofura ntoin monohydra te/macroc rystals 100 mg capsule 03/14 completed Not Available Not Available Not Available chlorhexi dine gluconate 0.12 % mouthwash 11/15 completed Not Available Not Available Not Available Tylenol active Not Available Not Avail able Not Available aripipraz ole 2 mg tablet TAKE 1 TABLET BY MOUTH AT NIGHT 09/08 completed Not Available Not Available Not Available OneTouch Verio test strips USE TO TEST THREE TIMES WEEKLY 2022 active Please dispense whatever is covered Not Available Not Available Not Available Xulane 150 mcg-35 mcg/24 hr transderm al patch 10/24 completed Not Available Not Available Not Available OneTouch Verio Flex Meter USE TO TEST BLOOD SUGAR active Not Available Not Available No t Available OneTouch Delica Plus Lancet 33 gauge USE TO TEST THREE TIMES WEEKLY active Not Available Not Available No t Available Vitals Date Recorded Body height Provider Name an d Address Organization Details Last Updated DateTime 03/12/2022 162.56 cm Tona Singleton MA [facility] 03/12/2022 09:39:12 Date Recorded Body mass index (BMI) Body weight Provider Name and Address Organization Details Last Updated DateTime 03/12/2022 29.7 kg/m2 64257.48 g Tona Singleton MA [facility] 09:44:10 Date Recorded Heart rate Provider Name an d Address Organization Details Last Updated DateTime 03/12/2022 107 /min Tona Singleton [place] [facility] 03/12/2022 09:45:33 Date Recorded Oxygen saturation Oxygen saturation in Arterial blood by Pulse oximetry Provider Name and Address Organization Details Last Updated DateTime 03/12/2022 98 % 98 % Tona Singleton [place] [facility] 03/12/2022 09:45:37 Date Recorded Body height Provider Name an d Address Organization Details Last Updated DateTime 09/08/2022 162.56 cm Robina Buford, [place] [facility] 023 10:00:29 Date Recorded Body mass index (BMI) Body weight Provider Name and Address Organization Details Last Updated DateTime 09/08/2022 32.8 kg/m2 86086.14 g Robina Milton, [place] [facility] 09/08/2022 10:00:35 Date Recorded Oxygen saturation Oxygen saturation in Arterial blood by Pulse oximetry Provider Name and Address Organization Details Last Updated DateTime 09/08/2022 99 % 99 % Robina Rose MA [facility] 09/08/2022 10:03:23 Date Recorded Heart rate Provider Name an d Address Organization Details Last Updated DateTime 09/08/2022 86 /min Robina Rose MA [facility] 023 10:03:26 Date Recorded Respiratory rate Provider Name a nd Address Organization Details Last Updated DateTime 09/08/2022 16 /min Robina Rose [place] [facility] 023 10:03:27 Date Recorded Body height Provider Name an d Address Organization Details Last Updated DateTime 11/13/2022 162.56 cm Robina Rose MA [facility] 023 10:39:41 Date Recorded Body mass index (BMI) Body weight Provider Name and Address Organization Details Last Updated DateTime 11/13/2022 33.3 kg/m2 27754.92 lisha Robina Rose MA [facility] 11/13/2022 10:39:49 Date Recorded Oxygen saturation Oxygen saturation in Arterial blood by Pulse oximetry Provider Name and Address Organization Details Last Updated DateTime 11/13/2022 99 % 99 % Robina Rose MA [facility] 11/13/2022 10:42:03 Date Recorded Heart rate Provider Name an d Address Organization Details Last Updated DateTime 11/13/2022 66 /min Robina BufordELFEGO [facility] [facility] 023 10:42:04 Date Recorded Respiratory rate Provider Name a nd Address Organization Details Last Updated DateTime 11/13/2022 14 /min Robina BufordELFEGO dyson [place] Lorie GARCIA 023 10:42:10 Date Recorded Body height Provider Name an d Address Organization Details Last Updated DateTime 03/25/2023 162.56 cm Robina MiltonELFEGO dyson [facility] 023 12:16:12 Date Recorded Body mass index (BMI) Body weight Provider Name and Address Organization Details Last Updated DateTime 03/25/2023 34.4 kg/m2 94324.91 g Robina Rose MA [facility] 03/25/2023 12:16:17 Date Recorded Heart rate Provider Name an d Address Organization Details Last Updated DateTime 03/25/2023 92 /min Robina BufordELFEGO dyson [facility] 023 12:18:18 Date Recorded Oxygen saturation Oxygen saturation in Arterial blood by Pulse oximetry Provider Name and Address Organization Details Last Updated DateTime 03/25/2023 97 % 97 % Robina BufordELFEGO dyson [facility] 03/25/2023 12:18:20 Date Recorded Respiratory rate Provider Name a nd Address Organization Details Last Updated DateTime 03/25/2023 18 /min Robina MiltonELFEGO dyson [facility] 023 12:18:25 Date Recorded Body height Provider Name an d Address Organization Details Last Updated DateTime 03/30/2024 162.56 cm Robina Rose MA [facility] 024 09:36:41 Date Recorded Body mass index (BMI) Body weight Provider Name and Address Organization Details Last Updated DateTime 03/30/2024 38.8 kg/m2 116972.88 g Robina MiltonELFEGO dyson [facility] 03/30/2024 09:36:47 Date Recorded Heart rate Provider Name an d Address Organization Details Last Updated DateTime 03/30/2024 84 /min Robina MiltonELFEGO dyson [facility] 024 09:39:20 Date Recorded Oxygen saturation Oxygen saturation in Arterial blood by Pulse oximetry Provider Name and Address Organization Details Last Updated DateTime 03/30/2024 98 % 98 % Robina Rose MA [facility] 03/30/2024 09:39:22 Date Recorded Respiratory rate Provider Name a nd Address Organization Details Last Updated DateTime 03/30/2024 18 /min Robina Rose MA [facility] 024 09:39:35 Date Recorded Systolic blood pressure Diastolic blood pressure Provider Name and Address Organization Details Last Updated DateTime 03/12/2022 128 mm[Hg] 80 mm[Hg] Tona Singleton MA [facility] 03/12/2022 09:45:30 Date Recorded Systolic blood pressure Diastolic blood pressure Provider Name and Address Organization Details Last Updated DateTime 09/08/2022 116 mm[Hg] 80 mm[Hg] Robina Rose MA [facility] 09/08/2022 10:03:21 Date Recorded Systolic blood pressure Diastolic blood pressure Provider Name and Address Organization Details Last Updated DateTime 11/13/2022 110 mm[Hg] 76 mm[Hg] Robina Rose MA [facility] 11/13/2022 10:42:02 Date Recorded Systolic blood pressure Diastolic blood pressure Provider Name and Address Organization Details Last Updated DateTime 03/25/2023 116 mm[Hg] 80 mm[Hg] Robina Rose MA [facility] 03/25/2023 12:18:16 Date Recorded Systolic blood pressure Diastolic blood pressure Provider Name and Address Organization Details Last Updated DateTime 03/30/2024 120 mm[Hg] 84 mm[Hg] Robina Rose MA [facility] 03/30/2024 09:39:32 Social History Question Answer Notes LastModified by Organizat ion Details LastModified Time Tobacco Smoking Status Current Some Day Smoker vape and maybe 3 cigs a day ELFEGO Crocker [facility] 03/25/2023 12:17:01 Do You Have An Advance Directive? No Information not available 03/14/2015 What Is Your Level Of Alcohol Consumption? Occasional Information not available 08/17/2018 What Is Your Level Of Caffeine Consumption? Moderate Information not available 08/17/2018 How Much Tobacco Do You Chew? None Information not available 08/17/2018 Have You Been To An Area Known To Be High Risk For COVID-19? No Information not available 11/16/2019 What Type Of Diet Are You Following? REGULAR Information not available 08/17/2018 Do You Or Have You Ever Used E-cigarettes Or Vape? 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 No Information not available 03/14/2015 Hard Of Hearing Or Deaf In One Or Both Ears? No Information not available 03/14/2015 Legally Blind In One Or Both Eyes? No Information not available 03/14/2015 What Was The Date Of Your Most Recent Tobacco Screening? 03/30/2024 Information not available 03/30/2024 Performs Monthly Self-breast Exam? No Information not available 03/14/2015 Seat Belts Used Routinely Yes Information not available 03/14/2015 Smoke Alarm In Home Yes Information not available 03/14/2015 Do You Or Have You Ever Used Smokeless Tobacco? Never Used Smokeless Tobacco Information not available 11/16/2019 How Much Tobacco Do You Smoke? 0.25 PPD Information not available 03/14/2015 Do You Use Sunscreen Routinely? No Information not available 03/14/2015 Has Tobacco Cessation Counseling Been Provided? Yes Information not available 08/17/2018 On What Date Was Tobacco Cessation Counseling Provided? 03/30/2024 Information not available 03/30/2024 How Many Years Have You Smoked Tobacco? 8 Information not available 01/02/2017 Sex: Unknown Functional Status None recorded. Mental Status None recorded. Family History Relationship Description Onset Age of this Age Resolved Age Notes LastModified by Organization Details LastModified Time Mother Malignant tumor of breast asavala Not available 2014 15:54:59 Mother Hypertensive disorder asavala Not available 2014 15:54:59 Father Diabetes mellitus asavala Not available 2014 15:54:59 Brother Attention deficit hyperactivit y disorder asavala Not available 03/14 15:54:59 Sister Attention deficit hyperactivit y disorder asavala Not available 03/14 15:54:59 Medical History Condition Response Coronary Artery Disease N Other Y Atrial Fibrillation N High Blood Pressure N Depression Y COPD N Blood Clots N Anxiety Disorder N Muscle, Joint, or Bone Problems Y Acid Reflux (GERD) N Cancer N Stroke N High Cholesterol N Liver Disease N Headaches N Kidney or Bladder Problems N Thyroid Problems N GI Problems N Skin Problems N Anemia N Heart Attack (ME) N Diabetes N Seizures/Epilepsy N Asthma N Allergies N Hepatitis N Osteoporosis N Heart Failure N Gynecological History Statement/Question Response Current Control Method Hysterectom y Date of LMP 05/04/2015 Obstetrics History GPAL:G 0 P 0 0 0 0 Immunizations Vaccine Type Date Status Note Provider Nam e and Address Organization Details Recorded Time COVID-19 vaccine, vector-nr, rS-Ad26, PF, 0.5 mL 1 completed [facility], [place] - [facility] 10/26/2020 10:10:56 MMR 8 completed Kirk Still MD Attn: [address] [place], [address], [facility] - [facility] 03/12/2022 10:00:08 DTP 0 completed Kirk Still MD Attn: [address] [place], [address], [facility] 03/12/2022 10:00:08 OPV 8 completed Kirk Still MD Attn: [address] [place], [address], [facility] - [facility] 03/12/2022 10:00:08 DTP 8 completed Kirk Still MD Attn: [address] [place], [address], [facility] - [facility] 03/12/2022 10:00:08 OPV 0 completed Kirk Still MD Attn: [address] [place], [address], [facility] - [facility] 03/12/2022 10:00:08 DTP 2 completed Kirk Still MD Attn: Accounting,[address], [place], [address], [place] [facility] 03/12/2022 10:00:08 DTP 8 completed Kirk Still MD Attn: Accounting,[address], [place], [address], [place] [facility] 03/12/2022 10:00:08 Hib, unspecified formulation 0 completed Kirk Still MD Attn: Accounting,[address], [place], [address], [place] [facility] 03/12/2022 10:00:08 OPV 2 completed Kirk Still MD Attn: Accounting,[address], [place], [address], [place] [facility] 03/12/2022 10:00:08 DTP 8 completed Kirk Still MD Attn: Accounting,[address], [place], [address], [place] [facility] 03/12/2022 10:00:08 OPV 8 completed Kirk Still MD Attn: Accounting,[address], [place], [address], [place] [facility] 03/12/2022 10:00:08 MMR 2 completed Kirk Still MD Attn: Accounting,[address], [place], [address], [place] [facility] 03/12/2022 10:00:08 Influenza, split virus, quadrivalent, PF 7 completed Not Available [facility] 05/21/2019 02:33:56 Tdap 8 completed Not Available [facility] 05/21/2019 02:46:05 Influenza, split virus, quadrivalent, PF 3 completed Kirk Still MD Attn: Accounting,[address], [place], [address], [place] [facility] 03/25/2023 12:49:52 Past Encounters Encounter ID Performer Location Encounter Start Date Encounter Closed Date Diagnosis/Indication Diagnosis SNOMED-CT Code Diagnosis ICD10 Code Diagnosis Note [id number] MD Kam Park (Adult Med) [address] [place] [address] 04291-665 0 03/14/2015 15:15:39 03/15/2015 09:14:25 General examination of patient 627170176 Z00.00 29 y/o BF who was last seen 05/03/2013 , she went to her Gynecologi st for her 6 week post-jam check up and she was told that her BP was high. Elevated blood-pressure reading without diagnosis of hypertension 750383098 R03.0 Low salt diet, monitor BP closely Tobacco user 303384822 Z 72.0 Cessation was discussed Bipolar disorder 9026097 4 F31.9 She needs to establish care with a Psychiatri st [id number] MD Kam Park (Adult Med) [address] [place] [address]248-734 0 05/07/2015 15:44:50 05/08/2015 18:19:28 Laboratory test result abnormal 211261059 R89.9 R94.6 Labs 03/16/2015 were reviewed, she has no urinary symptoms, I will repeat her TSH. Elevated blood-pressure reading without diagnosis of hypertension 006945838 R03.0 Low salt diet, normal BP reading today [id number] MD Kam Park (Adult Med) [address] [place] [address] 37217-712 0 10/24/2016 16:22:52 10/27/2016 10:21:58 Adult health examination 469084812 Z00.01 Headache 92093722 R51 Bipolar disorder 6174365 4 F31.9 She still needs to establish care with a Psychiatri st [id number] MD Kam Park (Adult Med) [address] [place] [address]1567-741 0 11/21/2016 14:38:29 11/21/2016 15:10:54 Benign essential hypertension 8891832 I10 Low salt diet and start HCTZ Toothache 81869710 K08.8 9 She states that her pain is controlled with OTC meds. [id number] MD Kam Park (Adult Med) [address] [place] [address] 38566-303 0 01/02/2017 14:18:56 01/02/2017 15:03:50 Impaired fasting glycemia 705026424 R73.01 Disorder o f lipid metabolism 260603859 E78.9 Administra tion of influenza vaccine 64948225 Z23 Benign ess ential hypertension 3059991 I10 Stable on HCTZ [id number] MD Kam Park (Adult Med) [address] [place] [address] 37039-317 0 12/30/2017 15:22:11 12/30/2017 16:38:25 Sciatica 72520359 M54.32 Nicotine dependence 5629 4008 F17.200 Bipolar disorder 2059984 4 F31.9 She still needs to establish care with a Psychiatri [facility] ex amination of patient 481750849 Z00.01 History of hypertension 518489324 Z86.79 Ptosis of eyelid 7980984 0 H02.402 Requires a tetanus booster 972494674 Z28.3 Allergic conjunctivitis 943807902 H10.12 Screening for malignant neoplasm of cervix 274090470 Z12.4 [id number] MD Kam Park (Adult Med) [address] [place] [address] 36486-387 0 02/16/2018 09:33:47 02/16/2018 09:57:13 Benign essential hypertension 1741738 I10 Stable on HCTZ 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 125333427 M99.59 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 139609910 M99.39 Low back pain 580830803 M54.5 She has improved after PT Influenza vaccination declined 843126838 Z28.21 [id number] MD Kam Park (Adult Med) [address] [place] [address] 99430-548 0 08/17/2018 09:50:55 08/18/2018 09:59:57 Benign essential hypertension 3401994 I10 Stable on HCTZ Upper resp iratory infection 64661092 J06.9 Nicotine dependence 5629 4008 F17.200 Influenza vaccination declined 254508238 Z28.21 [id number] MD Kam Park (Adult Med) [address] [place] [address] 92307-605 0 11/16/2019 14:58:07 11/17/2019 12:18:38 Low back pain 070513545 M54.5 She had previously improved after PTILPMPTra madol, side effects were discussedM RIPT 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 506160887 M99.59 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 753942383 M99.39 Bipolar disorder 4113350 4 F31.9 She still needs to establish care with a Psychiatri st General ex amination of patient 679056166 Z00.01 Nicotine dependence 5629 4008 F17.200 Tooth disorder 463786243 K08.9 [id number] MD Kam Park (Adult Med) [address] [place] [address] 76900-903 0 10/29/2021 09:22:14 10/30/2021 10:47:51 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 582270526 M99.39 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 696783953 M99.59 Body mass index 30+ - obesity 392948554 Z68.30 Benign ess ential hypertension 5351715 I10 Restart HCTZ General ex amination of patient 358598106 Z00.01 Medication monitoring 39 6128275 Z51.81 Low back pain 703420812 M54.59 She has been to PTShe has an abnormal MRI from 01/18/2018P ain management Screening for malignant neoplasm of cervix 585584662 Z12.4 Thoracic back pain 22906 8004 M54.6 SARS-CoV-2 mRNA vaccine declined 9446347368 Z28.21 [id number] MD Kam Park (Adult Med) [address] [place] [address] 77973-585 0 03/12/2022 09:23:33 03/13/2022 15:53:21 Impaired fasting glycemia 818729678 R73.01 Discussed Disorder o f lipid metabolism 490837806 E78.9 Discussed Tachycardia 5252300 R00. 0 Serum crea tinine above reference range 117402422 R79.89 Degenerati on of lumbar intervertebral disc 71392504 M51.36 Screening for malignant neoplasm of cervix 297873094 Z12.4 Family his tory of diabetes mellitus 085476835 Z83.3 Influenza vaccination declined 083568032 Z28.21 [id number] MD Kam Park (Adult Med) [address] [place] [address] 19225-307 0 09/08/2022 09:25:06 09/10/2022 12:38:33 Impaired fasting glycemia 407699572 R73.01 Discussed General ex amination of patient 138669594 Z00.01 Medication monitoring 39 2160834 Z51.81 Benign ess ential hypertension 3650502 I10 Continue HCTZ Immunization advised 310 100148 Z71.9 SARS-CoV-2 vaccination declined 4373852430 Z28.21 [id number] Kirk Still MD [facility] (Adult Med) [address] [place] [address] 96925-188 0 11/13/2022 09:57:35 11/17/2022 13:51:40 Impaired fasting glycemia 569288656 R73.01 Discussed History of total hysterectomy 052972988 Z90.387 [id number] Kirk Still MD [facility] (Adult Med) [address] [place] [address] 07265-305 0 03/25/2023 12:07:20 03/27/2023 15:27:08 Impaired fasting glycemia 546645848 R73.01 Administra tion of influenza vaccine 99580621 Z23 Upper resp iratory infection 30583353 J06.9 Depressive disorder 3548 9007 F32.A Medication monitoring 39 9070803 Z51.81 Body mass index 30+ - obesity 646140269 Z68.34 [id number] Kirk Still MD [facility] (Adult Med) [address] [place] [address] 76575-668 0 03/30/2024 09:19:03 04/05/2024 10:06:49 Impaired fasting glycemia 011108151 R73.01 Discussed Influenza vaccination declined 674955455 Z28.21 Unintentio nal weight gain 9803156181 30273 R63.5 General ex amination of patient 618429176 Z00.01 Snoring 45797135 R06.83 Health Concerns Section Related Observation LastModified by Organization Detai ls LastModified Time None Recorded Concern Status LastModified by Organization Details LastModified Time None Recorded Advance Directives Directive N: Payers Encounter Date Sequence Insurance Name Policy Number Policy Lozoya Covered Member ID Lozoya Member ID Guarantor Name 03/12/2022 1 [place] Ronda L Morris [id number] Ronda Morris 03/12/2022 2 [place] MEDIC[place] REPLACEMENT [place]IMARY) Ronda Morris [id number] Ronda Morris 09/08/2022 1 [place] Ronda L Morris [id number] Ronda Morris 09/08/2022 2 [place]) Ronda Morris [id number] Ronda Morris 11/13/2022 1 [place] Ronda L Morris [id number] Ronda Morris 11/13/2022 2 [place]ACEMENT [place]) Ronda Morris [id number] Ronda Morris 03/25/2023 1 [place] Ronda L Morris [id number] Ronda Morris 03/25/2023 2 [place]PLACEMENT [place]) Ronda Morris [id number] Ronda Morris 03/30/2024 1 [place] Ronda L Morris [id number] Ronda Morris 03/30/2024 2 [place]PLACEMENT [place]) Ronda Morris [id number] Ronda Morris Notes Date Note Type Note Provider Name and Address Organization Details Recorded Time 03/12/2022 text/html Tired It was j ust a follow up Kirk Still MD Attn: [address] [place], [address], [place] [facility] 03/12/2022 11:56:40 09/08/2022 text/html Hypertension F/UReported bypatient.Associated Symptoms:no dizziness; no lightheadedness; no chest pain; no shortness of breath; no palpitations; no edema; no calf pain with exertion Lifestyle:regular exercise; limiting/avoiding salt Medications:taking medications as directed; no side effects from medication Other than that A normal check up He said I had a cyst and Fibroids inside my uterus Ms Morris is doing well, she is to have a JUSTIN soon. Kirk Still MD Attn: [address] [facility], [place], [address], [facility] 09/08/2022 10:56:19 11/13/2022 text/html Follow up for m y blood work for the pre Diabetes Where do I get a monitor to monitor it myself at home In the interim, she had a JUSTIN. Kirk Still MD Attn: Accounting[address] [facility], [place], [address], [facility] 11/13/2022 12:36:16 03/25/2023 text/html It is just my 6 month Congestion for the last week or so Ms Morris complains of nasal congestion and drainage with no relief from OTC medications. She denies a cough, fever or myalgia. Kirk Still MD Attn: [address] [place], [address], [place] [facility] 03/25/2023 12:53:07 03/30/2024 text/html Medicare Annual Wellness VisitReported bypatient.Diet and Nutrition:healthy diet Fracture Risk:no history of fractures; no recent explained fracture; no sudden unexplained fractures; no previous musculoskeletal injuries Physical Activity:exercises on a regular basis; recent increase in physical activity; good physical condition Depression Risk:never feels sad, empty, or tearful; no loss of interest in activities; no significant changes in weight; no sleep disturbances or insomnia; no agitation; no loss of energy; no feelings of worthlessness or guilt; no thoughts of suicide;history of mood disorders;history of depression Orientation:no disorientation to time; no disorientation to date; no disorientation to place Concentration and Memory:no decreased concentrating ability; no memory lapses or loss; does not forget words Speech/Motor difficulties:no speech difficulties; no difficulty expressing formulated concepts; no difficulty with fine manipulative tasks; no difficulty writing/copying; no slowed reaction time; does not knock things over when trying to pick them up Hearing:no loss of hearing Vision:worse both distance and near Activities of Daily Living:able to bathe with limited or no assistance; able to contol urination and bowels; able to dress with limited or no assistance; able to feed self with limited or no assistance; able to get out of chair or bed with limited or no assistance; able to groom with limited or no assistance; able to toilet with limited or no assistance Instrumental Activities of Daily Living:able to do house work with limited or no assistance; able to grocery shop with limited or no assistance; able to manage medications with limited or no assistance; able to manage money with limited or no assistance; able to prepare meals with limited or no assistance; able to use the phone with limited or no assistance Falls Risk Assessment:no frequent falls while walking; no dizziness/vertigo; fall(s) in the past year 1; fall(s) since last visit1 Home Safety:no unsafe alma hazzards; no unsafe stairs; no unsafe gas appliances; working smoke/CO detectors; wears protective head gear for biking/high velocity; use of seatbelts; no vision or hearing loss while driving; has hand bars in the bathroom/shower; good lighting in the home I slipped down the steps Ms Morris returns, she was 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 In the interim, she was in the ER after a fall. She snores but she has no reported apneic episodes Kirk Still MD Attn: [address] [place], [address], [facility] 03/30/2024 18:59:10 OBGyn Episode No OBEpisode recorded.
--- OUTSIDE RECORDS SUMMARY | 2024-06-04 17:12 | XMS_ITS | Clinical Summary ---
Author Organization [facility] Address [address] [place] [address] Care Team Providers Care Golf Cart Attendant Name Role Phone Kirk Still MD Primary Care Provider Allergies No known active allergies Medications hydroCHLOROthia zide (HYDRODIURIL) 25 mg tablet TK 1 T PO QD 3 7 Active chlorhexidine (PERIDEX) 0.12 % solution Swish 15 mL in mouth for 30 seconds then spit out twice a day after brushing teeth, 473 mL 9 Active acetaminophen-c odeine (TYLENOL with CODEINE #3) 300-30 mg per tablet Take 1 tablet by mouth every 4 (four) hours as needed for pain 12 tablet 9 Active amitriptyline (ELAVIL) 25 mg tabletIndicatio ns:Neuropathic Pain Take 1 tablet (25 mg total) by mouth nightly as needed for sleep (will help with pain as well, will cause constipation, take laxatives otc as needed) 30 tablet 2 Active oxyCODONE-aceta minophen (PERCOCET) 5-325 mg per tabletIndicatio ns:Pain Take 1 tablet by mouth every 6 (six) hours as needed for pain 20 tablet 2 Active amoxicillin-cla vulanate (AUGMENTIN) 875-125 mg per tabletIndicatio ns:Upper Respiratory/NESTOR NT Infection Take 1 tablet by mouth every 12 (twelve) hours 20 tablet 2 Active HYDROcodone-jamin taminophen (NORCO) 5-325 mg per tabletIndicatio ns:Pain Take 1 tablet by mouth every 6 (six) hours as needed for pain 15 tablet 2 Active naproxen (NAPROSYN) 500 mg tablet Take 1 tablet (500 mg total) by mouth 2 (two) times a day with meals 30 tablet 4 Active methocarbamoL (ROBAXIN) 500 mg tablet Take 1 tablet (500 mg total) by mouth 2 (two) times a day 20 tablet 4 Active lidocaine (LIDODERM) 5 % Place 1 patch on the skin daily for 14 days Remove & discard patch within 12 hours or as directed by MD. 14 patch 4 Active traMADoL (ULTRAM) 50 mg tablet Take 1 tablet (50 mg total) by mouth every 6 (six) hours 10 tablet 4 Active Active Problems Problem Noted Date Diagnosed Date Bipolar disorder 09/30/2021 Intervertebral disc stenosis of neural canal History of hypertension 12/30/2017 Encounters Date Type Department Care Team Description 04/04/2024 5:01 PM CORPORATE SCHEDULER - 04/04/2024 5:20 PM [facility] Emergency Department [address] [place] [address] Acute midline low back pain without sciatica (Primary Dx); Left hip pain Discharge Disposition: Discharge to home or self care from Last 3 Months Surgical History Surgery Date Site/Laterality Comments TUBAL LIGATION Medical History Medical History Date Comments Hypertension Bipolar 1 disorder (HCC) Social History Tobacco Use Types Packs/Day Years Used Date Smoking Tobacco: Every Day Cigarettes Smokeless Tobacco: Never Tobacco Cessation:Ready to Q uit: No; Counseling Given: Yes Alcohol Use Standard Drinks/Week Comments Yes 0 (1 standard drink = 0.6 oz pur e alcohol) Personal Safety Answer Date Recorded Have you ever been in or are you currently in a harmful physical or emotional relationship or is someone making you feel afraid or unsafe? Denies 04/04/2024 Comments No Sex and Gender Information Value Date Recorded Sex Assigned at Not on file Legal Sex Female 7:24 AM CORPORATE SCHEDULER Gender Identity Not on file Sexual Orientation Not on file Obstetrics History Last Filed Vital Signs Vital Sign Reading Time Taken Comments Blood Pressure 140/94 04/04/2024 3:25 PM CORPORATE SCHEDULER Pulse 78 04/04/2024 3:25 PM CORPORATE SCHEDULER Temperature 36.6 ??C (97.8 ??F) 04/04/2024 3:25 PM CS T Respiratory Rate 17 04/04/2024 3:25 PM CORPORATE SCHEDULER Oxygen Saturation 98% 04/04/2024 3:25 PM CORPORATE SCHEDULER Inhaled Oxygen Concentration - - Weight 102.1 kg (225 lb) 04/04/2024 3:25 PM CORPORATE SCHEDULER Height 162.6 cm (5' 4 ) 04/04/2024 3:25 PM CORPORATE SCHEDULER Body Mass Index 38.62 04/04/2024 3:25 PM CORPORATE SCHEDULER Plan of Treatment Health Maintenance Due Date Last Done Comments Depression Screening 1986 Hepatitis C Screening 1986 Pneumococcal vaccine <65 (1 of 2 - PCV) 1992 Varicella Vaccines (1 of 2 - 13+ 2-dose series) 1999 Hepatitis B Screening 2004 Regular Well Visit/Exam 18-64 2004 Covid-19 Vaccine (2 - season) 2024 08/06/2020 Influenza Vaccine (#1) 2024 03/25/2023, 2016 DTaP/Tdap/Td Vaccine (7 - Td or Tdap) 12/31/2027 12/30/2017, 08/08/1991, 01/25/1990, Additional history exists HPV Vaccines Aged Out No longer eligi ble based on patient's age to complete this topic Procedures Procedure Name Priority Date/Time Associated Diagnosis Comments XR SPINE LUMBAR 2 OR 3 VIEWS ED 04/04/2024 4:36 PM CORPORATE SCHEDULER XR HIP LEFT W PELVIS 2 OR 3 VIEWS ED 04/04/2024 4:36 PM CORPORATE SCHEDULER from Last 3 Months Results * XR Hip Left 2 or 3 Views W Pelvis (04/04/2024 4:36 PM CORPORATE SCHEDULER) Anatomical Region Laterality Modality Lower Extremities, Hip, Pelvis Left C omputed Radiography 04/04/2024 4:55 PM CORPORATE SCHEDULER Narrative 04/04/2024 4:56 PM CORPORATE SCHEDULER EXAM DESCRIPTION: XR HIP LEFT 2 OR 3 VIEWS W PELVIS REASON FOR STUDY: pain ?? . Pt states she fell down 5 steps. Falling onto her buttocks and back. Pt states L sided hip pain and lower back pain ? TECHNIQUE: ??Frontal view of the pelvis, frontal and lateral views of the ??left hip. COMPARISON: None FINDINGS: BONES/JOINTS: ??No fracture, malalignment, or suspicious osseous lesion is identified. ?? Joint spaces are preserved. ?? SOFT TISSUES: ??Unremarkable. ?? IMPRESSION: No fracture or malalignment identified. ?? THIS IS AN ELECTRONICALLY VERIFIED FINAL REPORT 04/04/2024 4:56 PM - Electronically signed by ??Jagdeep Dee M.D. AR: RILEY D: ??04/04/2024 4:56 PM T: ??04/04/2024 4:56 PM Report ID: [id number] Reading Location: ??[id number] Procedure Note Jagdeep Dee MD - 04/04/2024 EXAM DESCRIPTION: XR HIP LEFT 2 OR 3 VIEWS W PELVIS REASON FOR STUDY: pain . Pt states she fell down 5 steps. Falling onto her buttocks and back. Pt states L sided hip pain and lower back pain TECHNIQUE: Frontal view of the pelvis, frontal and lateral views of theleft hip. COMPARISON: None FINDINGS: BONES/JOINTS: No fracture, malalignment, or suspicious osseous lesion is identified. Joint spaces are preserved. SOFT TISSUES: Unremarkable. IMPRESSION: No fracture or malalignment identified. THIS IS AN ELECTRONICALLY VERIFIED FINAL REPORT 04/04/2024 4:56 PM - Electronically signed by Jagdeep Dee M.D. AR: RILEY Report ID: [id number] Reading Location: [id number] [facility] IM XR PROCEDURES Final Result * XR Spine Lumbar 2 or 3 Views (04/04/2024 4:36 PM CORPORATE SCHEDULER) Anatomical Region Laterality Modality Spine N/A Computed Radiogr aphy 04/04/2024 4:56 PM CORPORATE SCHEDULER Narrative 04/04/2024 4:57 PM CORPORATE SCHEDULER EXAM DESCRIPTION: XR SPINE LUMBAR 2 OR 3 VIEWS REASON FOR STUDY: pain ?? . Pt states she fell down 5 steps. Falling onto her buttocks and back. Pt states L sided hip pain and lower back pain ? TECHNIQUE: ?? Frontal, lateral, and spot lateral ??views of the lumbar spine. COMPARISON: 01/04/2024 FINDINGS: VERTEBRAE: ??Vertebral bodies are normal in height and alignment. ?? Minimal lower lumbar disc space narrowing. OTHER OSSEOUS: ??Visualized ribs and pelvis unremarkable. SOFT TISSUES: ??Nonobstructive bowel gas pattern. ?? IMPRESSION: No acute abnormality identified. ?? THIS IS AN ELECTRONICALLY VERIFIED FINAL REPORT 04/04/2024 4:57 PM - Electronically signed by ??Jagdeep Dee M.D. AR: RILEY D: ??04/04/2024 4:57 PM T: ??04/04/2024 4:57 PM Report ID: [id number] Reading Location: ??[id number] Procedure Note Jagdeep Dee MD - 04/04/2024 EXAM DESCRIPTION: XR SPINE LUMBAR 2 OR 3 VIEWS REASON FOR STUDY: pain . Pt states she fell down 5 steps. Falling onto her buttocks and back. Pt states L sided hip pain and lower back pain TECHNIQUE: Frontal, lateral, and spot lateral views of the lumbarspine. COMPARISON: 01/04/2024 FINDINGS: VERTEBRAE: Vertebral bodies are normal in height and alignment. Minimal lower lumbar disc space narrowing. OTHER OSSEOUS: Visualized ribs and pelvis unremarkable. SOFT TISSUES: Nonobstructive bowel gas pattern. IMPRESSION: No acute abnormality identified. THIS IS AN ELECTRONICALLY VERIFIED FINAL REPORT 04/04/2024 4:57 PM - Electronically signed by Jagdeep Dee M.D. AR: RILEY Report ID: [id number] Reading Location: [id number] [facility] IMG XR PROCEDURES Final Result from Last 3 Months Insurance MEDICARE [employer] MEDICARE IDPA MEDICARE [facility] Address: [address] [address] [place] [address] IDPA Care Teams Golf Cart Attendant Relationship Specialty Start Date End Date Kirk Still MD [address] [facility] [address] [place] [address] PCP - General 04/23/17
--- OUTSIDE RECORDS SUMMARY | 2024-06-04 17:12 | XMS_ITS | CONTINUITY OF CARE DOCUMENT ---
Author Name luca segovia Address Unknown Organization [facility] Address [address] [place] [address] Phone [phone] Care Team Providers Care Jig Boring Machine Operator For Metal Name Role Phone luca segovia Unavailable Unavailable SOCIAL HISTORY Date Observation Value Provider physical exercise, frequency, days per we ek no LinkLogic caffeine use, average drinks per day yes LinkLogic smoking status Non-smoker LinkLogic INSURANCE PROVIDERS Payer name Policy type / Coverage type [place] red republican ID HEALTHCARE AND FAMILY SERVICES Medicaid 0 [id number]
--- OUTSIDE RECORDS SUMMARY | 2024-06-04 17:12 | XMS_ITS | Continuity of Care Document ---
Author Organization [facility] Address [address] [facility] [address] [place] [address] Phone Care Team Providers Care Shuttle Route Vehicle Operator Name Role Phone Asher OD, Thierno Unavailable Unavailable Procedures Procedure Date Eye Exam & Treatment Eye Exam & Treatment Advance Directives Directive Yes / No Effective Date File Name No Information Encounters Encounter Description Practice Location Reason(s) For Visit Diagnoses Date Provider Providers Copied on Encounter [facility], [address] [place] [address] [address], [place], [place], [id number], tel:[phone] [facility] [place] No Information 3-200 8 Asher OD Thierno. [address] [facility] [facility] , [address], [place], [address], [place]. tel:[phone] [facility], [address] [place] [address] [address], [place], [place], [id number], tel:[phone] [facility] [place] No Information 4-200 7 Asher OD Thierno. [address] [facility] , [address], [place], [address], [place]. tel:[phone] Family History Family Member Type Diagnosis Age At Onset No Information Payers Payer name Insurance type Covered democrat ID Authoriza tion(s) Medicare [facility] [id number] Medicaid [facility] [id number] Social History Type Description Quantity Date Captured [...]
--- OUTSIDE RECORDS SUMMARY | 2024-06-04 17:12 | XMS_ITS | Referral Summary ---
Author Organization [facility] Address [address] [place] [address] Care Team Providers Care Box Finisher Name Role Phone Kirk Still MD Primary Care Provider Encounters Date Type Department Care Team Description 04/04/2024 5:01 PM ANIMAL HEALTH TECHNICIAN - 04/04/2024 5:20 PM ANIMAL HEALTH TECHNICIAN Emergency [facility] Emergency Department 1 [place] [address] Acute midline low back pain without sciatica (Primary Dx); Left hip pain Discharge Disposition: Discharge to home or self care from Last 3 Months Allergies No known active allergies Medications hydroCHLOROthia [...] of neural canal History of hypertension 12/30/2017 Social History Tobacco Use Types Packs/Day Years [...] on file Legal Sex Female 7:24 AM ANIMAL HEALTH TECHNICIAN Gender Identity Not on file Sexual Orientation Not on file Last Filed Vital Signs Vital Sign Reading Time Taken Comments Blood Pressure 140/94 04/04/2024 3:25 PM ANIMAL HEALTH TECHNICIAN Pulse 78 04/04/2024 3:25 PM ANIMAL HEALTH TECHNICIAN Temperature 36.6 ??C (97.8 ??F) 04/04/2024 3:25 PM CS T Respiratory Rate 17 04/04/2024 3:25 PM ANIMAL HEALTH TECHNICIAN Oxygen Saturation 98% 04/04/2024 3:25 PM ANIMAL HEALTH TECHNICIAN Inhaled Oxygen Concentration - - Weight 102.1 kg (225 lb) 04/04/2024 3:25 PM ANIMAL HEALTH TECHNICIAN Height 162.6 cm (5' 4 ) 04/04/2024 3:25 PM ANIMAL HEALTH TECHNICIAN Body Mass Index 38.62 04/04/2024 3:25 PM ANIMAL HEALTH TECHNICIAN Plan of Treatment Not on file Procedures Procedure Name Priority Date/Time Associated Diagnosis Comments XR SPINE LUMBAR 2 OR 3 VIEWS ED 04/04/2024 4:36 PM ANIMAL HEALTH TECHNICIAN XR HIP LEFT W PELVIS 2 OR 3 VIEWS ED 04/04/2024 4:36 PM ANIMAL HEALTH TECHNICIAN from Last 3 Months Results * XR Hip Left 2 or 3 Views W Pelvis (04/04/2024 4:36 PM ANIMAL HEALTH TECHNICIAN) Anatomical Region Laterality Modality Lower Extremities, Hip, Pelvis Left C omputed Radiography 04/04/2024 4:55 PM ANIMAL HEALTH TECHNICIAN Narrative 04/04/2024 4:56 PM ANIMAL HEALTH TECHNICIAN EXAM DESCRIPTION: XR HIP LEFT 2 OR [...] PM T: ??04/04/2024 4:56 PM Report ID: [id number] Reading Location: ??[id number] Procedure Note Jagdeep Dee MD - 12/02/2024 EXAM DESCRIPTION: XR HIP LEFT 2 OR [...] Jagdeep Dee M.D. AR: RILEY Report ID: [id number] Reading Location: [place] [address] [facility] IMG XR PROCEDURES Final Result * XR Spine Lumbar 2 or 3 Views (04/04/2024 4:36 PM ANIMAL HEALTH TECHNICIAN) Anatomical Region Laterality Modality Spine N/A Computed Radiogr aphy 04/04/2024 4:5 6 PM ANIMAL HEALTH TECHNICIAN Narrative 04/04/2024 4:57 PM ANIMAL HEALTH TECHNICIAN EXAM DESCRIPTION: XR SPINE LUMBAR 2 OR [...] PM T: ??04/04/2024 4:57 PM Report ID: [id number] Reading Location: ??[id number] Procedure Note Jagdeep Dee MD - 04/04/2024 [...] Jagdeep Dee M.D. AR: RILEY Report ID: [id number] Reading Location: [id number] [facility] IM XR PROCEDURES Final Result from Last 3 Months Insurance MEDICARE [facility] Address: [address] [address] [place] [address] [facility] MEDIC[facility] IDSD Member Subscriber Plan / Payer ( fective 2018-Present) Name:Ronda Morris Member ID:Not on file Relation to Subscriber:Self Name:Ronda Morris Subscriber ID:Not on file Payer ID:[id number] Group ID:Not on file Type:[place]ID [place] Address: [place] [id number] MEDICARE IDPA Care Teams Box Finisher Relationship Specialty Start Date End Date Kirk Still MD [address] [facility] 1 [place] [address] PCP - General 04/23/17
--- OUTSIDE RECORDS SUMMARY | 2024-06-04 17:16 | XMS_ITS | Continuity of Care Document ---
Author Organization [facility] Address [address] [facility] [address] [place] [address] Phone Care Team Providers Care Camera Mechanic Name Role Phone Asher OD, Thierno Unavailable Unavailable Procedures Procedure Date Eye Exam & Treatment Eye Exam & Treatment Advance Directives Directive Yes / No Effective Date File Name No Information Encounters Encounter Description Practice Location Reason(s) For Visit Diagnoses Date Provider Providers Copied on Encounter [facility], [address] [place] [address] [address], [place], [place], [id number], tel:[phone] [facility] [place] No Information 3-200 8 Asher OD Thierno. [address] [facility] , [address], [place], [address], [place]. tel:[phone] [facility], [address] [place] [address] [address], [place], [place], [id number], tel:[phone] [facility] [place] No Information 4-200 7 Asher OD Thierno. [address] [facility] , [address], [place], [address], [place]. tel:[phone] Family History Family Member Type Diagnosis Age At Onset No Information Payers Payer name Insurance type Covered democrat ID Authoriza tion(s) Medicare [facility] [id number] Medicaid [facility] [id number] Social History Type Description Quantity Date Captured [...]
--- OUTSIDE RECORDS SUMMARY | 2024-06-04 17:16 | XMS_ITS | CONTINUITY OF CARE DOCUMENT ---
Author Name luca segovia Address Unknown Organization [facility] Address [address] [place] [address] Phone [phone] Care Team Providers Care Stock Counter Name Role Phone luca segovia Unavailable Unavailable SOCIAL HISTORY Date Observation Value Provider physical exercise, frequency, days per we ek no LinkLogic caffeine use, average drinks per day yes LinkLogic smoking status Non-smoker LinkLogic INSURANCE PROVIDERS Payer name Policy type / Coverage type [place] red republican ID HEALTHCARE AND FAMILY SERVICES Medicaid 0 [id number]
[2024-06-04 17:26] VITALS: BP 126/87; PULSE 73; RESP 20; TEMP 36.6; O2SAT 100
--- NOTE | 2024-06-04 17:58 | ED_ITS ---
HPI - Extremity Injury (Upper) General Chief Complaint: Extremity Injury, Upper Stated Complaint: Fall Injury to Left Wrist Time Seen by Provider: 06/04/24 17:50 Source: patient, RN notes reviewed and old records reviewed Mode of arrival: ambulatory Limitations: no limitations History of Present Illness HPI narrative: 39 year old female who presents to express care with continued pain to her left wrist. Patient reports on the or May when reported she put her hands out against a wall to try to break her fall and her left wrist hyperextended. She states that she has continued pain to the inner aspect of her left wrist which increases with movement. Patient has mild swelling to the inner aspect of her left wrist, full mobility is present, sensation and circulation intact. MD complaint: injury to: left and wrist Onset (ago): week(s) (3 weeks) Other injuries: none Severity scale (1-10): 5 Treatments prior to arrival: NSAIDS and other (Tylenol) Related Data Home Medications ?Medication ?Instructions ?Recorded ?Confirmed ?Last Taken ?Type lamotrigine 100 mg tablet,extended 200 mg PO DAILY 07/08/20 06/04/24 10/15/22 History release 24 hr trazodone 50 mg tablet 50 mg PO HS 07/08/20 06/04/24 10/15/22 History gabapentin 300 mg capsule 300 mg PO TID 05/27/22 06/04/24 10/15/22 History hydrochlorothiazide 25 mg tablet 25 mg PO DAILY 05/27/22 06/04/24 10/15/22 History aripiprazole 5 mg tablet 5 mg PO DAILY 08/26/22 06/04/24 10/15/22 History azelastine 137 mcg (0.1 %) nasal 2 spray intranasal BID 05/27/23 06/04/24 Unknown History spray trazodone 100 mg tablet mg 06/04/24 Unknown History Allergies Allergy/AdvReac Type Severity Reaction Status Date / Time No Known Allergies Allergy Unknown Verified 06/04/24 17:11 Review of Systems Review of Systems: CONSTITUTIONAL: Denies fever, chills, or sweats. EYES: Denies visual changes, redness, or discharge. ENT: Denies rhinorrhea, congestion, sore throat, or otalgia. CARDIOVASCULAR: Denies chest pain, palpitations, or edema. RESPIRATORY: Denies cough or dyspnea. GASTROINTESTINAL: Denies abdominal pain, nausea, vomiting, or diarrhea. GENITOURINARY: Denies dysuria or hematuria. SKIN: Denies rash or itching. MUSCULOSKELETAL: Reports chronic back pain, positive for inner left wrist pain, or myalgia. NEUROLOGIC: Denies headache, numbness, or weakness. PSYCHIATRIC: Positive for history of anxiety or depression. All systems reviewed & are unremarkable except as noted in HPI and below PMFSH Past Medical History Medical History Fracture of tooth Facial contusion Encounter for screening for malignant neoplasm of cervix Back pain Vaginal delivery 12/10/07 09/30/12 demise at 18w--hydrops 12/25/14 PCR DNA positive for HSV1 Asthma Trichomonas vaginalis infection Abnormal Pap smear of cervix 12/2009 ascus hpv negative/06/2008 LEEP- LGSIL AMPARO 05/09/2008 colpo chronic cervicitis 03/2008LGSIL HPV+ 2005 lgsil Bipolar disorder On disability GERD (gastroesophageal reflux disease) Hypertension Surgical History Surgical History History of robot-assisted laparoscopic hysterectomy (10/16/22) Robotic assisted total laparoscopic hysterectomy Bilateral salpingectomy History of tubal ligation (08/28/16) History of gynecologic surgery (08/28/16) hscope d&c/Novasure ablation/tubal ligation--menometrorrhagia, dysmenorrhea, undesired fertility--acute chronic endometritis History of colposcopy with cervical biopsy 11/01/07 no bx taken--benign 05/08/08 benign H/O LEEP 06/13/08 AMPARO I Family History Family History (Updated 05/30/24 @ 10:47 by MARI Peoples) Father Diabetes mellitus Heart disease Hypertension Grandparent Diabetes mellitus paternal grandmother Other Diabetes mellitus paternal aunt Breast cancer maternal aunt Social History Social History (Updated 06/06/24 @ 20:52 by Susi Modi NP) Years smoked: 25 Smoking status: Current every day smoker Tobacco type: e-cigarettes/vaping Second hand tobacco smoke exposure: No Additional smoking assessment comments: former cigarette smoker 1/2 ppd now vapes Alcohol intake: current Alcohol use details: VERY RARE Substance use: never Substance use type: does not use Do You Feel Safe in your Home?: Yes Lack of Transportation: No Lack of Food: Never True Current Housing: I Have Housing Concerned About Future Housing: No Difficulty Paying Gas/Electric Bills: No Difficulty Paying for Meds: No Currently Unemployed: No Education: High School Diploma/GED Difficulty w/ Childcare or Family Care: No Living arrangements: with family Additional living arrangements comments: CHILDREN Occupation/Education: unemployed Additional occupation/education comments: disablility Gender identity (if verbalized by the patient): Female Sexual Orientation (if Verbalized by the Patient): Straight or Heterosexual Spiritual care concerns: No Comments At time of signature, agree with nursing past medical, surgical, social and family history. There is no relevant family history pertinent to the presenting complaint Exam Narrative: GENERAL: Well-appearing, well-nourished, and in no acute distress. HEAD: Normocephalic, atraumatic. EYES: PERRLA and EOMI. ENT: Nares clear, no rhinorrhea or epistaxis. Mucous membranes moist.TM's normal throat pink with no swelling. NECK: Supple.no lymphadenopathy CHEST: Clear to auscultation. No respiratory distress. no cough SAO2 100% on room air HEART: Regular rate and rhythm. No murmur heard. Normal peripheral pulses. ABDOMEN: Soft, nontender, nondistended, normal active bowel sounds. EXTREMITIES: Normal range of motion. No edema.Exception noted to left inner wrist with some swelling noted and increased pain with movement of left wrist. ROM is intact to left wrist, strong pulses present left wrist, no tingling or numbness. SKIN: Warm, dry, no rash. NEURO: No focal deficits. Alert and oriented x3. Course Course Emergency Course: Patient is aware of diagnosis, understands and agrees to treatment plan.? Anticipatory guidance given.? Patient agrees to follow-up as directed and is aware of reasons to seek care at the emergency department. Portions of this record may have been created with voice recognition software Level of Care: Express Care Visit Vital Signs Vital signs: Vital Signs Temperature 36.6 C 06/04/24 17:26 Pulse Rate 73 06/04/24 17:26 Respiratory Rate 20 06/04/24 17:26 Blood Pressure 126/87 06/04/24 17:26 Pulse Oximetry 100 06/04/24 17:26 Oxygen Delivery Room Air 06/04/24 17:26 Temperature 36.6 C 06/04/24 17:26 Pulse Rate 73 06/04/24 17:26 Respiratory Rate 20 06/04/24 17:26 Blood Pressure 126/87 06/04/24 17:26 Pulse Oximetry 100 06/04/24 17:26 Oxygen Delivery Room Air 06/04/24 17:26 Reviewed MDM - Extremity Injury (Upper) Differential Diagnosis Differential diagnosis: Likely sprain and strain of wrist, fracture of wrist and other (pain to left wrist, swelling left wrist) Medical Records Attestation: I reviewed the patient's medical records. Imaging Data My impression: no acute osseous findings in the left wrist, soft tissues within normal limits Radiologist's impression: [address] [address] XRay Report Signed Patient: Ronda Morris : 1985 MR#: [id number] Age: 39 Acct:[id number] Loc: [facility] ADM Date: 06/04/24Attending Dr: Ordering Physician: Susi Modi CHIEF DOG LICENSE INSPECTOR Date of Service: 06/04/24 Procedure(s): XR wrist LT min 3V Accession Number(s): [id number] cc: Tessy, Kirk LEBLANC; Susi Modi CHIEF DOG LICENSE INSPECTOR~ EXAM: XR wrist LT min 3V DATE: 06/04/2024 18:20 HISTORY: injury bent backward . COMPARISON: None available. FINDINGS: Normal mineralization. No fracture or dislocation. No lytic or blastic lesion. Joint spaces are maintained. No erosion or periosteal change. Soft tissues within normal limits. IMPRESSION: No acute osseous finding in the left wrist. Reviewed, dictated and finalized at location K. ENTIALER Please be advised this is a medical document. It is intended for [id number] communication. It is written in medical language and may contain unfamiliar abbreviations or verbiage. Medical documents are intended to carry relevant information, facts as evident, and the clinical opinion of the practitioner at the time of the encounter. This report may have been done utilizing a voice recognition system. Attempts have been made to correct errors. However, there may be uncorrected grammatical, spelling, and recognition errors present. The file time of this note does not necessarily represent the time of service. Dictated By: Zbigniew Abraham MD 06/04/24 1837 Signed By: <Electronically signed by Zbigniew Abraham MD in OV> Critical Care Time Critical Care Time Critical Care Time: No Discharge Plan Discharge Clinical Impression: Pain in left wrist Patient Disposition: Home, Self-Care Condition: Stable Instructions: Wrist Injury (ED) Additional Instructions: Elastic wrap or orthopedic splint as directed for comfort for the next 5-7 days Tylenol for lesser pain Ibuprofen regularly for the next 2-3 days for the inflammation Follow-up with orthopedic surgeon or hand surgeon if continued problems Follow-up with PCP if further problems or concerns Ice to the area 20-30 minutes 4-6 times a day Elevate above heart Move your wrist frequently If your symptoms persist, change or worsen significantly before you can contact your personal physician then please, without delay, go to the emergency department for further evaluation. Follow-up with PCP in 7-10 days or sooner if needed Follow up with PCP soon in regards to your blood pressure which is elevated above threshold for referral. Blood pressure above 120/80 may indicate pre-hyper tension. 126/87 Patient Language: Kyrgyz Prescriptions: No Action azelastine 137 mcg (0.1 %) aerosol,spray 2 spray INTRANASAL BID trazodone 100 mg tablet trazodone 50 mg tablet 50 mg PO HS lamotrigine 100 mg Tablet Extended Release 24hr 200 mg PO DAILY gabapentin 300 mg capsule 300 mg PO TID hydrochlorothiazide 25 mg tablet 25 mg PO DAILY aripiprazole 5 mg tablet 5 mg PO DAILY Follow-up/Referrals: TessyKirk M.D. [Primary Care Provider] - Time of Disposition: 18:44 Quality Saray Coma Scale Eyes: Open Verbal: Oriented and Alert Motor: Follows Commands Saray Coma Total Score: 15
== END 2024-06-04 18:48 | disposition home or self-care (01) ==
PROVIDERS: Emergency Provider Registered Nurse; PCP Internal Medicine Infectious Disease
DX: M25.532 Pain in left wrist (principal); F17.290 Nicotine dependence, other tobacco product, uncomplicated; I10 Essential (primary) hypertension; J45.909 Unspecified asthma, uncomplicated; K21.9 Gastro-esophageal reflux disease without esophagitis; F31.9 Bipolar disorder, unspecified
CPT/HCPCS: 73110; 99213; G0463

== ENCOUNTER 2024-10-25 09:36 | Outpatient (CLI) | payer MEDICARE, MEDICAID, SELFPAY ==
--- NOTE | ~2024-10-25 | MM_ITS ---
EXAMINATION: MM screening jesenia BI w delores HISTORY: Screening mammogram TECHNIQUE: Craniocaudal and mediolateral oblique 3-D tomosynthesis images were obtained and synthetic 2-D images were generated. CAD analysis was submitted and interpreted. COMPARISON: No prior mammogram is available for comparison at this institution. BREAST PARENCHYMAL COMPOSITION:Not Dense. The breasts are almost entirely fatty FINDINGS: 11 mm ovoid mass present at the lower, inner right breast. No parenchymal abnormality of th e left breast. No suspicious microcalcifications. IMPRESSION: 11 mm right breast mass, as above. Spot compression views and ultrasound are recommended for further evaluation. BI-RADS Category 2: Benign finding(s). Reviewed, dictated and finalized at location . IMPRESSION: 11 mm right breast mass, as above. Spot compression views and ultrasound are r ecommended for further evaluation. BI-RADS Category 2: Benign finding(s).
== END 2024-10-25 09:37 | disposition home or self-care (01) ==
PROVIDERS: PCP Internal Medicine Infectious Disease; Visit Provider Obstetrics & Gynecology
DX: R92.8 Other abnormal and inconclusive findings on diagnostic imaging of breast (principal); Z12.31 Encounter for screening mammogram for malignant neoplasm of breast; Z80.3 Family history of malignant neoplasm of breast
CPT/HCPCS: 77063; 77067

== ENCOUNTER 2024-11-18 13:16 | Outpatient (CLI) | payer MEDICARE, MEDICAID, SELFPAY ==
--- NOTE | ~2024-11-18 | MMUS_ITS ---
EXAMINATION: MM diagnostic jesenia RT w delores, US breast RT limited HISTORY: Follow-up right breast mass TECHNIQUE: Additional 3-D tomosynthesis images of the right breast were performed and synthetic 2-D i mages were generated. CAD analysis was submitted and interpreted. High resolution Limited right breas t ultrasound was performed. COMPARISON: 10/25/2024 BREAST PARENCHYMAL COMPOSITION: Not dense: There are scattered areas of fibroglandular density. FINDINGS: MAMMOGRAPHIC FINDINGS: There is an oval low-density circumscribed mass in the lower inner quadrant of the right breast, midd le-posterior depth. There are no suspicious calcifications or architectural distortion. ULTRASOUND: Limited right breast ultrasound: At 5:00, 3 cm from the nipple there is a 4 mm cyst. No other masses are identified. IMPRESSION: 1. Oval low-density mass lower inner quadrant of the right breast, middle-posterior third. There is a cyst in the right breast at 5:00, 3 cm from the nipple measuring 4 mm which does not likely correspo nd to the mammographic finding due to size and location. Findings are likely benign. 2. Recommend 6 month follow-up diagnostic right mammogram and Limited right breast ultrasound. BI-RADS category 3, probably benign findings. Reviewed, dictated and finalized at location B. IMPRESSION: 1. Oval low-density mass lower inner quadrant of the right breast, middle-poste rior third. There is a cyst in the right breast at 5:00, 3 cm from the nipple m easuring 4 mm which does not likely correspond to the mammographic finding due to size and location. Findings are likely benign. 2. Recommend 6 month follow-up diagnostic right mammogram and Limited right lorena ast ultrasound. BI-RADS category 3, probably benign findings.
--- OUTSIDE RECORDS SUMMARY | 2024-11-18 13:20 | XMS_ITS | Clinical Summary ---
Author Organization [facility] Address [address] [place] [address] Phone Care Team Providers Care Grain Elevator Operator Name Role Phone Kirk Still MD Primary Care Provider Deshawn Riggs MD Unavailable Allergies Active Allergy Reactions Criticality Noted Date Comments Other-Food Allergen (Not Found In Search) Anaphylaxis High 08/08/2024 Medications amitriptyline (ELAVIL) 25 MG Tablet Take 25 mg by mouth nightly. 2 Active ARIPiprazole (ABILIFY) 5 MG Tablet Take 5 mg by mouth daily. Active gabapentin (NEURONTIN) 300 MG Capsule Take 300 mg by mouth 3 times daily. Active insulin glargine (LANTUS, BASAGLAR) 100 UNIT/ML Solution Pen-injector 25 Units by Subcutaneous route nightly. 5 Active Insulin Lispro, 1 Unit Dial, 100 UNIT/ML Solution Pen-injector 10 Units by Subcutaneous route 3 times daily (before meals). 5 025 Active lamoTRIgine (LaMICtal) 100 MG Tablet Take 200 mg by mouth 2 times daily. Active Continuous Glucose Business And Services Instructor (Dexcom G7 Business And Services Instructor) Device Use as directed 5 Active Continuous Glucose Sensor (Dexcom G7 Sensor) Misc USE TO CHECK BLOOD GLUCOSE CHANGE EVERY 10 DAYS 5 Active Jardiance 25 MG Tablet TAKE 1 TABLET BY MOUTH EVERY DAY AT BEDTIME FOR DIABETES MELLITUS 5 Active B-D INSULIN SYRINGE 29G X 1/2 0.5 ML Misc Use as directed 5 Active azelastine (OPTIVAR) 0.05 % Solution 1 Drop 2 times daily. Use in affected eye(s) Active hydroCHLOROthi azide 25 MG Tablet Take 25 mg by mouth daily. Active mirtazapine (REMERON) 15 MG Tablet Take 15 mg by mouth nightly. Active Ozempic, 1 MG/DOSE, 4 MG/3ML Solution Pen-injector 1 mg by Subcutaneous route once a week. 9 mL 5 Active metFORMIN (GLUCOPHAGE-XR ) 500 MG TABLET SR 24 HR Take 1 Tablet by mouth 2 times daily. This RX is for Metformin SR. 180 Tablet 1 5 Active metFORMIN (GLUCOPHAGE-XR ) 500 MG TABLET SR 24 HR TAKE 1 TABLET BY MOUTH EVERY DAY AT BEDTIME FOR DIABETES 5 025 Discontin ued(Reord er) Ozempic, 0.25 or 0.5 MG/DOSE, 2 MG/3ML Solution Pen-injector INJECT 0.25MG SUBCUTANEOUS EVERY WEEK 5 025 Discontin ued(Dose adjustmen t) Encounters Date Type Department Care Team Description 11/01/2024 9:15 AM CDT Office Visit [facility] [address] [place] [address] Deshawn Riggs MD Type 2 diabetes mellitus without complication, with long-term current use of insulin (Primary Dx); Insulin dose changed (HCC); Medication dose changed; Hypoglycemia; Class 2 severe obesity due to excess calories with serious comorbidity and body mass index (BMI) of 35.0 to 35.9 in adult (HCC) Discharge Disposition: Discharged to home or Selfcare 11/01/2024 Telephone [facility] [address] [place] [address] Deshawn Riggs MD Results 11/01/2024 Travel from Last 3 Months Immunizations Immunization Administration Dates Next Due DTP Vaccine 08/08/1991, 0,12/31/1987, 988,06/06/1987 Hib Vaccine,unspecified Formulation 01/25/1990 Influenza Vaccine, Quadrivalent, PF 03/25/2023,0 01/02/2017 MMR Vaccine 08/08/1991,12/31/1987 OPV 08/08/1991, 0,08/07/1987, 988 TDAP Vaccine 12/30/2017 Family History Relation Name Status Comments Other Unknown Social History Tobacco Use Types Packs/Day Years Used Date Smoking Tobacco: Every Day Cigarettes Smokeless Tobacco: Never Tobacco Cessation:Ready to Q uit: Not Asked; Counseling Given: Not Answered Comments Unknown Sex and Gender Information Value Date Recorded Sex Assigned at Not on file Legal Sex Female 8:08 AM CDT Gender Identity Not on file Sexual Orientation Not on file Last Filed Vital Signs Vital Sign Reading Time Taken Comments Blood Pressure 126/68 11/01/2024 9:03 AM CDT Pulse 85 11/01/2024 9:03 AM CDT Temperature 36.8 C (98.2 F) 11/01/2024 9:03 AM CDT Respiratory Rate 22 11/01/2024 9:03 AM CDT Oxygen Saturation 96% 11/01/2024 9:03 AM CDT Inhaled Oxygen Concentration - - Weight 94.3 kg (207 lb 12.8 oz) 11/01/2024 9:03 AM CDT Height 162.6 cm (5' 4) 11/01/2024 9:03 AM CDT Body Mass Index 35.67 11/01/2024 9:03 AM CDT Plan of Treatment Upcoming Encounters Date Type Department Care Team (Late st Contact Info) Description 02/02/2025 9:00 AM CDT Office Visit [facility] - [place] [address] [place] [phone] Deshawn Riggs MD [address] [place] [address] Health Maintenance Due Date Last Done Comments Hepatitis C Virus (HCV) Screening 1985 Human Papillomavirus (HPV) Immunization (1 - 3-dose series) 2001 Hepatitis B Immunization (1 of 3 - 19+ 3-dose series) 2005 Pneumococcal Immunization Combined (1 of 2 - PCV) 2005 SARS-COV-2 Immunization (2 - season) 2024 08/06/2020 Influenza Immunization (#1) 2025 03/25/2023, 0 01/02/2017 DTaP/Tdap/Td Immunization (7 - Td or Tdap) 12/31/2027 12/30/2017, 08/08/1991, 01/25/1990, Additional history exists Respiratory Syncytial Virus (RSV) Immunization (Adult) (1 - 1-dose 75+ series) 2061 TdaP Immunization Discontinued 12/30/2017 Meningococcal Immunization (ACWY) Aged Out No longer eligible based on patient's age to complete this topic Rotavirus Immunization Aged Out No lo nger eligible based on patient's age to complete this topic Procedures Procedure Name Priority Date/Time Associated Diagnosis Comments POCT GLYCOSYLATED HEMOGLOBIN Routine 11/01/2024 9:13 AM CDT Type 2 diabetes mellitus without complication, with long-term current use of insulin from Last 3 Months Results * (ABNORMAL) POCT GLYCOSYLATED HEMOGLOBIN (11/01/2024 9:13 AM CDT) HGB-A1C 6.5(A) 4 - 6 % Blood 11/01/2024 9:13 AM CDT Deshawn Riggs MD POINT OF CARE TESTING (MANUAL) F inal Result from Last 3 Months Insurance MEDICARE MEDICAID [place] Care Teams Grain Elevator Operator Relationship Specialty Start Date End Date Kirk Still MD [address] [place], [place] [id number] PCP - General Internal Medicine 08/17/24 Deshawn Riggs MD [address] [phone] Consulting Physician Endocrinology 10/28/24
--- OUTSIDE RECORDS SUMMARY | 2024-11-18 13:20 | XMS_ITS | Clinical Summary ---
Author Organization [facility] Address [address] [place] [id number] Care Team Providers Care Automation Architect Name Role Phone Kirk Still MD Primary Care Provider [phone] Social History Tobacco Use Types Packs/Day Years Used Date Smoking Tobacco: Never Assessed Comments Unknown Sex and Gender Information Value Date Recorded Sex Assigned at Female 07/12/2024 4:11 PM CDT Legal Sex Female 1:11 PM CARDIOVASCULAR OPERATING ROOM NURSE Gender Identity Not on file Sexual Orientation Not on file Plan of Treatment Health Maintenance Due Date Last Done Comments Cervical Cancer Screening Pap Smear (Age 30 to 64) Every 3 Years 1985 Annual Physical 1989 Hepatitis C 2004 Hepatitis B Vaccines (1 of 3 - 19+ 3-dose series) 2005 Cervical Cancer Screening Pap with HPV Testing (Age 30 to 64) Every 5 Years 2016 Cervical Cancer Screening with HPV 2016 COVID-19 Vaccine ( season) 2024 08/06/2020 DTaP, Tdap and Td Vaccines (7 - Td or Tdap) 12/31/2027 12/30/2017, 08/08/1991, 01/25/1990, Additional history exists HPV Vaccines Aged Out No longer eligi ble based on patient's age to complete this topic Meningococcal B Vaccine Aged Out No l onger eligible based on patient's age to complete this topic Meningococcal Vaccine Aged Out No gareth colette eligible based on patient's age to complete this topic Pneumococcal Vaccine: Pediatrics (0 to 5 Years) and At-Risk Patients (6 to 49 Years) Aged Out No longer eligible based on patient's age to complete this topic RSV Immunizations Under 20 Months Aged Out No longer eligible based on patient's age to complete this topic Insurance MEDICAID MEDICARE Care Teams Automation Architect Relationship Specialty Start Date End Date Kirk Still MD [address] [place] [phone] PCP - General INTERNAL MEDICINE 07/12/24
== END 2024-11-18 13:17 | disposition home or self-care (01) ==
LOC: ANHIMG 13:19
PROVIDERS: PCP Internal Medicine Infectious Disease; Visit Provider Obstetrics & Gynecology
DX: R92.8 Other abnormal and inconclusive findings on diagnostic imaging of breast (principal); N63.14 Unspecified lump in the right breast, lower inner quadrant; N60.01 Solitary cyst of right breast
CPT/HCPCS: 76642; 77061; 77065; G0279

== ENCOUNTER 2025-03-17 09:50 | Emergency (ER) | payer MEDICARE, MEDICAID, SELFPAY ==
--- OUTSIDE RECORDS SUMMARY | 2007-08-25 07:15 | XMS_ITS | Continuity of Care Document ---
Author Organization [facility] Address [address] [place] [address] Phone Care Team Providers Care Composition Board Press Operator Name Role Phone Asher OD, Thierno Unavailable Unavailable Procedures Procedure Date Eye Exam & Treatment Eye Exam & Treatment Advance Directives Directive Yes / No Effective Date File Name No Information Encounters Encounter Description Practice Location Reason(s) For Visit Diagnoses Date Provider Providers Copied on Encounter [facility], [address] [place] [address] [address], [place], [place], [id number], tel:[phone] [facility] No Information 3-200 8 Asher OD Thierno. [address] , [address], [place], [address], [place]. tel:[phone] [facility], [address] [place] [address] [address], [place], [place], [id number], tel:[phone] [facility] No Information 4-200 7 Asher OD Thierno. [address] [facility] [address] , [address], [place], [address], [place]. tel:[phone] Family History Family Member Type Diagnosis Age At Onset No Information Payers Payer name Insurance type Covered green party ID Authoriza tion(s) Medicare [facility] [id number] Medicaid [facility] [id number] Social History Type Description Quantity Date Captured Comments Sex Female Smoking Status No Information Chief Complaint And Reason For Visit No Information Reason For Referral Reason For Referral No Information History Of Present Illness Encounter Date Complaint History Of Prese nt Illness No Information Functional Status Date Functional Assessmen t No Information Instructions Date Instruction Additional Infor mation No Information Assessments Type Assessment Date No Information Patient Care Teams Name Effective Dates (start - stop) Status Members No Information
--- OUTSIDE RECORDS SUMMARY | 2007-08-25 07:15 | XMS_ITS | Continuity of Care Document ---
Author Organization [facility] Address [address] [place] [address] Phone Care Team Providers Care Sales Recruiter Name Role Phone Asher OD, Thierno Unavailable Unavailable Procedures Procedure Date Eye Exam & Treatment Eye Exam & Treatment Advance Directives Directive Yes / No Effective Date File Name No Information Encounters Encounter Description Practice Location Reason(s) For Visit Diagnoses Date Provider Providers Copied on Encounter [facility], [address] [place] [address] [address], [place], [place], [id number], tel:[phone] [facility] No Information 3-200 8 Asher OD Thierno. [address] , [address], [place], [address], [place]. tel:[phone] [facility], [address] [place] [address] [address], [place], [place], [id number], tel:[phone] [facility] [place] No Information 4-200 7 Asher OD Thierno. [address] , [address], [place], [address], [place]. tel:[phone] Family History Family Member Type Diagnosis Age At Onset No Information Payers Payer name Insurance type Covered republican ID Authoriza tion(s) Medicare [facility] [id number] Medicaid [facility] [id number] Social History Type Description Quantity Date Captured [...]
--- OUTSIDE RECORDS SUMMARY | 2007-08-25 07:15 | XMS_ITS | Continuity of Care Document ---
Author Organization [facility] Address [address] [facility] [address] [place] [address] Phone Care Team Providers Care Braid Cutter Name Role Phone Asher OD, Thierno Unavailable Unavailable Procedures Procedure Date Eye Exam & Treatment Eye Exam & Treatment Advance Directives Directive Yes / No Effective Date File Name No Information Encounters Encounter Description Practice Location Reason(s) For Visit Diagnoses Date Provider Providers Copied on Encounter [facility], [address] [place] [address] [address], [place], [place], [id number], tel:[phone] [facility] [place] No Information 3-200 8 Asher OD Thierno. [address] , [address], [place], [address], [place]. tel:[phone] [facility], [address] [place] [address] [address], [place], [place], [id number], tel:[phone] [facility] [place] No Information 4-200 7 Asher OD Thierno. [address] , [address], [place], [address], [place]. tel:[phone] Family History Family Member Type Diagnosis Age At Onset No Information Payers Payer name Insurance type Covered republican ID Authoriza tion(s) Medicare [facility] [id number] Medicaid [facility] [id number] Social History Type Description Quantity Date Captured [...]
[2025-03-17 10:01] VITALS: BP 127/80; PULSE 99; RESP 18; TEMP 36.8; O2SAT 100
--- NOTE | 2025-03-17 10:19 | ED.LOWEXIN ---
HPI - Extremity Injury (Lower) General Chief Complaint: Extremity Injury, Lower Stated Complaint: Left Toe Injury Time Seen by Provider: 03/17/25 10:20 Source: patient, RN notes reviewed and old records reviewed Mode of arrival: ambulatory Limitations: no limitations History of Present Illness HPI Narrative: 39 year old female who presents to [facility] care with complaints of awakening this morning with pain to her left 5th toe with nail partially avulsed with no present active bleeding. Patient reports that she is unsure if she got foot wrapped up in a blanket or if hit toe on couch where she fell asleep on last night. Patient reports that she has taken some Tylenol for her discomfort and cleansed toeis wearing flip flop to her left foot.. MD complaint: other (partial nail avulsion left 5th toe) Onset (ago): hour(s) (this morning upon awakening) Injury: Left: toes (5th toenail) Type of Injury: blunt Place: home Severity scale (1-10): 5 Treatments prior to arrival: other (cleansed toe and took Tylenol) Related Data Home Medications ?Medication ?Instructions ?Recorded ?Confirmed ?Last Taken ?Type lamotrigine 100 mg tablet,extended 200 mg PO DAILY 07/08/20 06/04/24 10/15/22 History release 24 hr trazodone 50 mg tablet 50 mg PO HS 07/08/20 06/04/24 10/15/22 History gabapentin 300 mg capsule 300 mg PO TID 05/27/22 06/04/24 10/15/22 History hydrochlorothiazide 25 mg tablet 25 mg PO DAILY 05/27/22 06/04/24 10/15/22 History aripiprazole 5 mg tablet 5 mg PO DAILY 08/26/22 06/04/24 10/15/22 History azelastine 137 mcg (0.1 %) nasal 2 spray intranasal BID 05/27/23 06/04/24 Unknown History spray trazodone 100 mg tablet mg 06/04/24 Unknown History Allergies Allergy/AdvReac Type Severity Reaction Status Date / Time No Known Allergies Allergy Unknown Verified 03/17/25 09:53 Review of Systems Review of Systems: CONSTITUTIONAL: Denies fever, chills, or sweats. CARDIOVASCULAR: Denies chest pain, palpitations, or edema. RESPIRATORY: Denies cough or dyspnea. SKIN: Reports partial nail avulsion to the left 5th toe nail with discomfort MUSCULOSKELETAL: Denies musculoskeletal pain NEUROLOGIC: Denies numbness, or weakness. All systems reviewed & are unremarkable except as noted in HPI and below PMFSH Past Medical History Medical History Fracture of tooth Facial contusion Encounter for screening for malignant neoplasm of cervix Back pain Vaginal delivery 12/10/07 09/30/12 demise at 18w--hydrops 12/25/14 PCR DNA positive for HSV1 Asthma Trichomonas vaginalis infection Abnormal Pap smear of cervix 12/2009 ascus hpv negative/06/2008 LEEP- LGSIL AMPARO 05/09/2008 colpo chronic cervicitis 03/2008LGSIL HPV+ 2005 lgsil Bipolar disorder On disability GERD (gastroesophageal reflux disease) Hypertension Surgical History Surgical History History of robot-assisted laparoscopic hysterectomy (10/16/22) Robotic assisted total laparoscopic hysterectomy Bilateral salpingectomy History of tubal ligation (08/28/16) History of gynecologic surgery (08/28/16) hscope d&c/Novasure ablation/tubal ligation--menometrorrhagia, dysmenorrhea, undesired fertility--acute chronic endometritis History of colposcopy with cervical biopsy 11/01/07 no bx taken--benign 05/08/08 benign H/O LEEP 06/13/08 AMPARO I Family History Family History Father Diabetes mellitus Heart disease Hypertension Grandparent Diabetes mellitus paternal grandmother Other Diabetes mellitus paternal aunt Breast cancer maternal aunt Social History Social History Years smoked: 25 Smoking status: Current every day smoker Tobacco type: e-cigarettes/vaping Second hand tobacco smoke exposure: No Additional smoking assessment comments: former cigarette smoker 1/2 ppd now vapes Alcohol intake: current Alcohol use details: VERY RARE Substance use: never Substance use type: does not use Do You Feel Safe in your Home?: Yes Lack of Transportation: No Lack of Food: Never True Current Housing: I Have Housing Concerned About Future Housing: No Difficulty Paying Gas/Electric Bills: No Difficulty Paying for Meds: No Currently Unemployed: No Education: High School Diploma/GED Difficulty w/ Childcare or Family Care: No Living arrangements: with family Additional living arrangements comments: CHILDREN Occupation/Education: unemployed Additional occupation/education comments: disablility Gender identity (if verbalized by the patient): Female Sexual Orientation (if Verbalized by the Patient): Straight or Heterosexual Spiritual care concerns: No Comments At time of signature, agree with nursing past medical, surgical, social and family history. There is no relevant family history pertinent to the presenting complaint Exam Narrative: GENERAL: Well-appearing, well-nourished, and in no acute distress. HEAD: Normocephalic, atraumatic. NECK: Supple.no lymphadenopathy CHEST: Clear to auscultation. No respiratory distress.SAO2 100% on room air HEART: Regular rate and rhythm. No murmur heard. Normal peripheral pulses. EXTREMITIES: Normal range of motion. No edema. SKIN: Warm, dry, no rash. Reports partial nail avulsion to the 5th left toe nail with no active bleeding, nail is loose but remains intact at present time, full mobility of toe and foot noted with sensation circulation amd mobility intact NEURO: No focal deficits. Alert and oriented x3. Course Course Level of Care: Express Care Visit Vital Signs Vital signs: Vital Signs Temperature 36.8 C 03/17/25 10:01 Pulse Rate 99 03/17/25 10:01 Respiratory Rate 18 03/17/25 10:01 Blood Pressure 127/80 03/17/25 10:01 Pulse Oximetry 100 03/17/25 10:01 Oxygen Delivery Room Air 03/17/25 10:01 Temperature 36.8 C 03/17/25 10:01 Pulse Rate 99 03/17/25 10:01 Respiratory Rate 18 03/17/25 10:01 Blood Pressure 127/80 03/17/25 10:01 Pulse Oximetry 100 03/17/25 10:01 Oxygen Delivery Room Air 03/17/25 10:01 reviewed Procedures Other Procedure Procedure 1: Other Procedure: 1030 distal toenail trimmed using sterile scissors, toe cleansed using chlorhexidine wipes and triple antibiotic ointment applied and band-aid to protect nail of 5th left toe Critical Care Time Critical Care Time Critical Care Time: No Discharge Plan Discharge Clinical Impression: Nail avulsion of toe Qualifiers: Encounter type: initial encounter Qualified Code(s): S91.209A - Unspecified open wound of unspecified toe(s) with damage to nail, initial encounter Patient Disposition: Home Condition: Stable Instructions: Antibiotic Form, Nail Avulsion (ED) Additional Instructions: soak left foot in warm soapy water using Dial soap twice daily rinse pat dry apply bacitracin ointment and Band-Aid to toe watch for any infection--redness, swelling, drainage Tylenol or ibuprofen for any fever pain per package direction follow up with PCP in 7-10 days for a wound check with your PCP recheck if develop fever, chills, increasing symptom Go to the ER if your symptoms become worse of if ANY new symptoms develop antibiotic as prescribed complete all doses If your symptoms persist, change or worsen significantly before you can contact your personal physician then please, without delay, go to the emergency department for further evaluation. Follow-up with PCP in 7-10 days or sooner if needed Follow up with PCP soon in regards to your blood pressure which is elevated above threshold for referral. Blood pressure above 120/80 may indicate pre-hypertension. 127/80 Patient Language: Mongolian Prescriptions: New bacitracin 500 unit/gram ointment 1 applic topical BID Qty: 14 0RF cephalexin 500 mg capsule 500 mg PO Q8H Qty: 21 0RF No Action azelastine 137 mcg (0.1 %) aerosol,spray 2 spray INTRANASAL BID trazodone 100 mg tablet trazodone 50 mg tablet 50 mg PO HS lamotrigine 100 mg Tablet Extended Release 24hr 200 mg PO DAILY gabapentin 300 mg capsule 300 mg PO TID hydrochlorothiazide 25 mg tablet 25 mg PO DAILY aripiprazole 5 mg tablet 5 mg PO DAILY Follow-up/Referrals: Tessy,Julia Bradley [Primary Care Provider] Time of Disposition: 10:39 Quality [place] Coma Scale Eyes: Open Verbal: Oriented and Alert Motor: Follows Commands [place] Coma Total Score: 15
--- OUTSIDE RECORDS SUMMARY | 2025-03-17 11:16 | XMS_ITS | Clinical Summary ---
Author Organization [facility] Address [address] [place] [address] Care Team Providers Care X Ray Equipment Servicer Name Role Phone Kirk Still MD Primary Care Provider Allergies Active Allergy Reactions Criticality Noted Date Comments Cottage Cheese Anaphylaxis High 08/08/2024 Medications hydroCHLOROthia zide (HYDRODIURIL) 25 mg tablet TK 1 T PO QD 3 7 Active amitriptyline (ELAVIL) 25 mg tabletIndicatio ns:Neuropathic Pain Take 1 tablet (25 mg total) by mouth nightly as needed for sleep (will help with pain as well, will cause constipation, take laxatives otc as needed) 30 tablet 2 Active lidocaine (LIDODERM) 5 % Place 1 patch on the skin daily for 14 days Remove & discard patch within 12 hours or as directed by . 14 patch 4 Active Additional Information Patient not taking.Reported on 08/08/2024 ARIPiprazole (ABILIFY) 5 mg tabletIndicatio ns:Depression Treatment Adjunct Take 1 tablet (5 mg total) by mouth nightly Active lamoTRIgine (LaMICtal) 100 mg tabletIndicatio ns:Bipolar Disorder in Remission,Depre ssion associated with Bipolar Disorder Take 2 tablets (200 mg total) by mouth daily Active gabapentin (NEURONTIN) 300 mg capsuleIndicati ons:Neuropathic Pain Take 1 capsule (300 mg total) by mouth 3 (three) times a day Active traZODone (DESYREL) 150 mg tabletIndicatio ns:insomnia associated with depression Take 1 tablet (150 mg total) by mouth nightly Active insulin glargine 100 unit/mL (3 mL) pen for injection Inject 25 Units under the skin daily 15 mL 3 Active insulin lispro (HumaLOG, ADMELOG) 100 unit/mL pen for injection Inject 10 Units under the skin 3 (three) times a day with meals 15 mL 3 5 Active Active Problems Problem Noted Date Diagnosed Date Diabetic ketoacidosis withou t coma associated with type 2 diabetes mellitus 08/08/2024 Bipolar disorder 09/30/2021 Intervertebral disc stenosis of neural canal History of hypertension 12/30/2017 Surgical History Surgery Date Site/Laterality Comments TUBAL LIGATION Medical History Medical History Date Comments Hypertension Bipolar 1 disorder (HCC) Diabetes mellitus Social History Tobacco Use Types Packs/Day Years Used Date Smoking Tobacco: Every Day Cigarettes 0.5 12.9 Started: 2012 Smokeless Tobacco: Never Tobacco Cessation:Ready to Q uit: Yes; Counseling Given: Yes Alcohol Use Standard Drinks/Week Comments Yes 0 (1 standard drink = 0.6 oz pur e alcohol) [facility] [employer] Answer Date Recorded In the past 12 months has [employer] Master, gas, oil, or water [employer] threatened to shut off services in your home? No 08/11/2024 Humiliation, Afraid, Rape, and Kick questionnair e Answer Date Recorded Within the last year, have y ou been afraid of your partner or ex-partner? No 08/11/2024 Within the last year, have y ou been humiliated or emotionally abused in other ways by your partner or ex-partner? No Within the last year, have y ou been kicked, hit, slapped, or otherwise physically hurt by your partner or ex-partner? No 08/11/2024 Within the last year, have y ou been raped or forced to have any kind of sexual activity by your partner or ex-partner? No 08/11/2024 Social Connection and Isolation Panel Answer Date Recorded In a typical week, how many times do you talk on the phone with family, friends, or neighbors? More than three times a week 08/11/2024 How often do you get togethe r with friends or relatives? More than three times a week 08/11/2024 How often do you attend chur ch or presybeterian services? Never 08/11/2024 Do you belong to any clubs o r organizations such as nondenominational groups, unions, fraternal or athletic groups, or school groups? No 08/11/2024 How often do you attend meet ings of the clubs or organizations you belong to? Never 08/11/2024 Are you , , di vorced, , never , or living with a partner? Never 08/11/2024 AUDIT-C Answer Date Recorded Q1: How often do you have a drink containing alc ohol? Monthly or less 08/11/2024 Q2: How many drinks containi ng alcohol do you have on a typical day when you are drinking? 1 or 2 08/11/2024 Q3: How often do you have si x or more drinks on one occasion? Never 08/11/2024 Overall Financial Resource Strain (CARDIA) Answe r Date Recorded How hard is it for you to pa y for the very basics like food, housing, medical care, and heating? Not hard at all 08/11/2024 PHQ-2 Answer Date Recorded PHQ-2 Total Score (If total score is 3 or more points, staff should administer the PHQ-9) 0 08/11/2024 [facility] of Occupat ional Health - Occupational Stress Questionnaire Answer Date Recorded Do you feel stress - tense, restless, nervous, or anxious, or unable to sleep at night because your mind is troubled all the time - these days? Only a little 08/11/2024 Exercise Vital Sign Answer Date Recorde d On average, how many days pe r week do you engage in moderate to strenuous exercise (like a brisk walk)? 7 days 08/11/2024 On average, how many minutes do you engage in exercise at this level? 30 min 08/11/2024 Hunger Vital Sign Answer Date Recorded Within the past 12 months, y ou worried that your food would run out before you got the money to buy more. Never true 08/12/19 25 Within the past 12 months, t he food you bought just didn't last and you didn't have money to get more. Never true 08/11/2024 PRAPARE - Transportation Answer Date Re corded In the past 12 months, has l ack of transportation kept you from medical appointments or from getting medications? No 08/02 In the past 12 months, has l ack of transportation kept you from meetings, work, or from getting things needed for daily living? No 08/11/2024 PHQ-9 Answer Date Recorded PHQ-9 Total Score 0 08/11/2024 Housing Stability Vital Sign Answer Usman e Recorded In the last 12 months, was t here a time when you were not able to pay the mortgage or rent on time? No 08/11/2024 In the past 12 months, how m any times have you moved where you were living? 0 08/11/2024 At any time in the past 12 m [facility], were you homeless or living in a snf (including now)? No 08/11/2024 Personal Safety Answer Date Recorded Have you ever been in or are you currently in a harmful physical or emotional relationship or is someone making you feel afraid or unsafe? Denies 08/08/2024 Comments No Sex and Gender Information Value Date Recorded Sex Assigned at Not on file Legal Sex Female 7:24 AM PAINTER SET Gender Identity Not on file Sexual Orientation Not on file Last Filed Vital Signs Vital Sign Reading Time Taken Comments Blood Pressure 140/79 08/11/2024 10:49 AM CDT Pulse 88 08/11/2024 10:49 AM CDT Temperature 36.2 C (97.1 F) 08/11/2024 10:49 AM CDT Respiratory Rate 18 08/11/2024 10:4 9 AM CDT Oxygen Saturation 97% 08/11/2024 10: 49 AM CDT Inhaled Oxygen Concentration - - Weight 108.9 kg (240 lb 1.3 oz) 08/10/2024 5:56 PM CDT Height 162.6 cm (5' 4) 08/10/2024 5:56 PM CDT Body Mass Index 41.21 08/10/2024 5:56 PM CDT Plan of Treatment Health Maintenance Due Date Last Done Comments Albumin Creatinine Ratio, Urine 1986 Hepatitis C Screening 1986 Dilated Eye Exam 1986 Foot Exam 1986 Lipid Panel 1986 Varicella Vaccines (1 of 2 - 13+ 2-dose series) 1999 Hepatitis B Screening 2004 Regular Well Visit/Exam 18-64 2004 Pneumococcal vaccine <65 (1 of 2 - PCV) 2005 HPV Vaccines (1 - 3-dose SCD M series) 2013 Covid-19 Vaccine (2 - 2024-2 6 season) 2025 08/06/2020 Influenza Vaccine (#1) 2025 03/25/2023, 2016 Hemoglobin A1C 02/08/2025 08/09/2024 eGFR 08/10/2025 08/10/2024, 04/0 12/2024, 08/09/2024, Additional history exists Depression Screening 08/11/2025 08/11/2024 DTaP/Tdap/Td Vaccine (7 - Td or Tdap) 12/31/2027 12/30/2017, 08/08/1991, 01/25/1990, Additional history exists Procedures Procedure Name Priority Date/Time Associated Diagnosis Comments EGFR Routine 08/10/2024 4:01 AM CDT HEMOGLOBIN A1C Add-On 08/09/2024 5:40 AM CDT from Last 3 Months or Most Recently Relevant to Health Maintenance Results * eGFR (08/10/2024 4:01 AM CDT) eGFR >90 >=60 mL/min/1. 73 m2 Comment: Interpretive Data Reference Interval Normal >/= 90 mL/min/1.73m2 Mildly decreased* 60 - 89 mL/min/1.73m2 Mildly to moderately decreased 45 - 59 mL/min/1.73m2 Moderately to severely decreased 30 - 44 mL/min/1.73m2 Severely decreased 15 - 29 mL/min/1.73m2 Kidney Failure < 15 mL/min/1.73m2 *Relative to young adult level Estimated glomerular filtration rate is determined by the 2020 CKD-EPI equation recommended by the National Kidney Foundation (A Unifying Approach to GFR Estimation: Recommendations of the NKF-ASK Task Force on Reassessing the Inclusion of Race in Diagnosing Kidney Disease, JASN 2020). The CKD-EPI equation should not be used for patients with unstable renal function and has not been validated in children and those over 70. Current interpretive data was last reviewed 2021. Blood 08/10/2024 4:01 AM CDT 08/10/2024 4:35 AM CDT us Chris Ronquillo MD LAB BLOOD ORDERABLES Final Resu lt Performing Organization Address [facility] Co de Phone Number OTONIEL REYES ([place]) [address] [facility] [place] [address] * (ABNORMAL) Hemoglobin A1c (08/09/2024 5:40 AM CDT) Hgb A1C 11.2(H) 4.0 - 5.6 % Estimated Average Glucose 275 mg/dL OTONIEL REYES ([place]) Comment: The ADA recommends reporting an estimated Average Glucose (eAG) with all Hemoglobin A1c results using the equation derived from a study of 507 normal and diabetic adults. Minority populations were underrepresented and children were not included. (Diabetes Care 31:9441-0278, 2008). The eAG is not equivalent to a fasting glucose. Blood 08/09/2024 5:40 AM CDT 08/11/2024 8:39 AM CDT us Leandra Magallanes MD LAB BLOOD ORDERABLES Final Re sult Performing Organization Address [facility] Co de Phone Number OTONIEL REYES ([place]) [address] [facility] [place] [address] from Last 3 Months or Most Recently Relevant to Health Maintenance Insurance MEDICARE [facility] MEDICARE [facility] MEDICARE IDPA Advance Directives For more information, please contact: [phone] * Full Code (Latest Code Status on File) Date Activated Date Inactivated Comments 08/08/2024 11:00 PM 08/11/2024 6:01 PM Care Teams X Ray Equipment Servicer Relationship Specialty Start Date End Date Kirk Still MD [address] [address] PCP - General 04/23/17
--- OUTSIDE RECORDS SUMMARY | 2025-03-17 11:16 | XMS_ITS | Clinical Summary ---
Author Organization [facility] Address [address] [place] [address] Phone Care Team Providers Care Cotton Ginner Helper Name Role Phone Kirk Still MD Primary [...] Units by Subcutaneous route nightly. 5 Active lamoTRIgine (LaMICtal) 100 MG Tablet Take 200 mg by mouth 2 times daily. Active Continuous Glucose Hat Ironer (Dexcom G7 Hat Ironer) Device Use as directed 5 Active Continuous [...] Take 15 mg by mouth nightly. Active metFORMIN (GLUCOPHAGE-XR ) 500 MG TABLET SR 24 HR Take 1 Tablet by mouth 2 times daily. This RX is for Metformin SR. 180 Tablet 1 5 Active Ozempic, 2 MG/DOSE, 8 MG/3ML Solution Pen-injector 2 mg by Subcutaneous route once a week. 9 mL 1 5 Active Insulin Lispro, 1 Unit Dial, 100 UNIT/ML Solution Pen-injector 10 Units by Subcutaneous route 3 times daily (before meals). 5 02/28/20 25 Encounters Date Type Department Care Team Description 02/08/2025 8:30 AM CDT Office Visit [facility] - Endocrinology [facility] ([facility] [address] [place] [address] Deshawn Riggs MD Type 2 diabetes mellitus without complication, with long-term current use of insulin (Primary Dx); Insulin dose changed; Medication dose changed; Hypoglycemia; Class 2 severe obesity due to excess calories with serious comorbidity and body mass index (BMI) of 35.0 to 35.9 in adult Discharge Disposition: Discharged to home or Selfcare 02/08/2025 Travel from Last 3 Months Immunizations Immunization [...] Sign Reading Time Taken Comments Blood Pressure 122/68 02/08/2025 8:41 AM CDT Pulse 79 02/08/2025 8:41 AM CDT Temperature 36.3 C (97.3 F) 02/08/2025 8:41 AM CDT Respiratory Rate 22 02/08/2025 8:41 AM CDT Oxygen Saturation 97% 02/08/2025 8:41 AM CDT Inhaled Oxygen Concentration - - Weight 93.5 kg (206 lb 3.2 oz) 02/08/2025 8:41 A M CDT Height 162.6 cm (5' 4) 11/01/2024 9:03 AM CDT Body Mass Index 35.39 11/01/2024 9:03 AM CDT Plan of Treatment Upcoming Encounters Date Type Department Care Team (Late st Contact Info) Description 05/17/2025 9:15 AM EARTH SCIENCE TECHNICIAN Office Visit [facility] - Endocrinology - [place] [address] [place] [id number] Deshawn Riggs MD [address] [id number] Health Maintenance Due Date Last Done Comments Hepatitis C Virus (HCV) Screening 1986 Hepatitis B Immunization (1 of 3 - 19+ 3-dose series) 2005 Pneumococcal Immunization Combined (1 of 2 - PCV) 2005 Medicare Initial AWV [id number] 04/03/2008 Human Papillomavirus (HPV) Immunization (1 - 3-dose SCDM series) 2013 Influenza Immunization (#1) 2025 03/25/2023, 0 01/02/2017 SARS-COV-2 Immunization (2 - 2024- season) 2025 08/06/2020 DTaP/Tdap/Td Immunization (7 - Td or Tdap) [...] Associated Diagnosis Comments POCT GLYCOSYLATED HEMOGLOBIN Routine 02/08/2025 8:49 AM CDT Type 2 diabetes mellitus without complication, with long-term current use of insulin from Last 3 Months Results * POCT GLYCOSYLATED HEMOGLOBIN (02/08/2025 8:49 AM CDT) HGB-A1C 5.5 4 - 6 % Blood 02/08/2025 8:49 AM CDT Deshawn Riggs MD POINT OF CARE TESTING (MANUAL) E dited Result - Final from Last 3 Months Insurance MEDICARE [place]ID [place] Care Teams Cotton Ginner Helper Relationship Specialty Start Date End Date Kirk Still MD [address] [place] [address] PCP - General Internal Medicine 08/17/24 Deshawn Riggs MD [address] [phone] Consulting Physician Endocrinology 10/28/24
--- OUTSIDE RECORDS SUMMARY | 2025-03-17 11:16 | XMS_ITS | Data Portability ---
Author Organization [facility] JOSESandra Address [address] [place] [address] Care Team Providers Care Belt Tender Name Role Phone [facility] Psychiatrist OSIEL ANGUIANO Hooker Operator KIRK LU Primary Care Provider Assessment No assessment recorded. Plan of Treatment Reminders Order Date Submit Date Provider Last Modified By Organization Details Last Modified Time Details Appointments ANY 30 2024 09:00A M Kirk Lu MD Not available Not available Not available ANY 15 2024 10:00A M Sheng Sanders MD Not available Not available Not available Lab CBC w/ auto diff 2024 025 [facility], [address] [facility], [address], [place], [address], 11/01/2024 06:14:56 HbA1c (hemoglob in A1c), blood 2024 025 [facility], [address], [place], [address], 11/01/2024 06:14:55 CBC w/ auto diff 2024 025 [facility], [address], [address], [place], [address], 09/24/2024 13:09:59 urinalysi s complete, reflex culture 2024 [place], [address], [address], [place], [address], 09/24/2024 13:09:57 glucose, fingersti ck, blood 2024 [email or web address] In-Office Order, Internal Use Only DO Not Attach Compendium DO Not Attach Compendium, Do Not Delete/merge, [id number] 09/23/2024 09:40:32 Referral physical therapist referral 2024 [facility], [address] [place], [address], 02/28/2025 12:03:53 Procedures None recorded. Surgeries excision, ganglion cyst, wrist/hernandez d, primary (SURG) 2024 [facility] (Surgery Sched), [address] [place], [address], 02/03/2025 09:02:26 Imaging None recorded. Medication Orders Novolog PenFill U-100 Insulin aspart 100 unit/mL subcutane ous cartridg 2024 025 [facility][id number], [address], [id number], 12/26/2024 13:58:32 Ozempic 0.25 mg or 0.5 mg (2 mg/3 mL) subcutane ous pen injector 2024 025 [facility][id number], [address], [id number], 12/06/2024 10:29:36 Basaglar KwikPen U-100 Insulin 100 unit/mL (3 mL) subcutane ous 2024 025 [facility] #[id number], [address], [place], [place], [id number], 12/06/2024 10:30:00 Ozempic 0.25 mg or 0.5 mg (2 mg/3 mL) subcutane ous pen injector 2024 025 [id number], [address], [place], [place], [id number], 09/23/2024 09:47:50 Patient TargetsNo targets recorded. Patient Instructions Encounter Date Encounter Id Patient Instructions Last Modified By Organization Details Last Modified Time 09/23/2024 [id number] learning about h igh white blood cell counts oajao Not available 09/23/2024 09:40:31 Low risk for complications unless her labs suggest otherwise Cover Marker () Note from [facility] Start Ozempic Labs Follow up in 5 weeks oajao Not available 09/23/2024 11:36:13 10/31/2024 [id number] Note from the [employer] [facility] (11/01/2024) Increase Ozempic to 0.5 mg Decrease Basaglar to 23 units Follow up in 2 months oajao Not available 10/31/2024 09:39:09 12/06/2024 [id number] Change to the Novolog pen Labs in March, [facility] in April, oajao Not available 12/06/2024 10:37:23 Reason for Referral Physical Therapist Referral for Ganglion cyst of left wrist Referring Physician: Sheng Sanders, Orthopedic Surgery, Encounter Date: 02/16/2025 Results Created Date Observation Date Name Description Value Unit Range Abnormal Flag Note LastModifiedBy Organization Detail LastModifiedTime 08/24/1908/23/2024 COMPL ETE BLOOD COUNT AUTO DIFF white blood count 11.1 x10e3 /uL 3.4-10 .8 high Not Available [facility] (Lab) [address] [place], [address], 08/23/2024 20:41:52 08/24/19 25 08/23/2024 COMPL ETE BLOOD COUNT AUTO DIFF red blood count 5.17 x10e6 /uL 3.77-5 .28 normal Not Available [facility] (Lab) [address] [place], [address], 08/23/2024 20:41:52 08/24/19 25 08/23/2024 COMPL ETE BLOOD COUNT AUTO DIFF hemoglobin 15.7 g/dL 11.1-1 5.9 normal Not Available [facility] (Lab) [address] [place], [address], 08/23/2024 20:41:52 08/24/19 25 08/23/2024 COMPL ETE BLOOD COUNT AUTO DIFF hematocrit 47.8 % 34.0-4 6.6 high Not Available [facility] (Lab) [address] [facility], [place], [address], 08/23/2024 20:41:52 08/24/19 25 08/23/2024 COMPL ETE BLOOD COUNT AUTO DIFF mean corpuscular volume 93 fL 79-97 normal Not Available [facility] (Lab) [address] [place], [address], 08/23/2024 20:41:52 08/24/19 25 08/23/2024 COMPL ETE BLOOD COUNT AUTO DIFF mean corpuscular hemoglobin 30.4 pg 26.6-3 3.0 normal Not Available [facility] (Lab) [address] [place], [address], 08/23/2024 20:41:52 08/24/19 25 08/23/2024 COMPL ETE BLOOD COUNT AUTO DIFF mean corpuscular HGB conc 32.8 g/dL 31.5-3 5.7 normal Not Available [facility] (Lab) [address] [place], [address], 08/23/2024 20:41:52 08/24/19 25 08/23/2024 COMPL ETE BLOOD COUNT AUTO DIFF red cell distribution width 14.5 % 11.5-1 4.5 normal Not Available [facility] (Lab) [address] [place], [address], 08/23/2024 20:41:52 08/24/19 25 08/23/2024 COMPL ETE BLOOD COUNT AUTO DIFF platelet count 281 x10e3 /uL 150-45 0 normal Not Available [facility] (Lab) [address] [place], [address], 08/23/2024 20:41:52 08/24/19 25 08/23/2024 COMPL ETE BLOOD COUNT AUTO DIFF mean platelet volume 11.6 fL 8.9-12 .7 normal Not Available [facility] (Lab) [address] [place], [address], 08/23/2024 20:41:52 08/24/19 25 08/23/2024 COMPL ETE BLOOD COUNT AUTO DIFF immature granulocytes pct auto 0.5 % not estb. Not Available [facility] (Lab) [address] [place], [address], 08/23/2024 20:41:52 08/24/19 25 08/23/2024 COMPL ETE BLOOD COUNT AUTO DIFF neutrophils percent auto 67 % not estb. Not Available [facility] (Lab) [address] [place], [address], 08/23/2024 20:41:52 08/24/19 25 08/23/2024 COMPL ETE BLOOD COUNT AUTO DIFF lymphocytes percent auto 24 % not estb. Not Available [facility] (Lab) [address] [place], [address], 08/23/2024 20:41:52 08/24/19 25 08/23/2024 COMPL ETE BLOOD COUNT AUTO DIFF monocytes percent auto 7 % not estb. Not Available [facility] (Lab) [address] [place], [address], 08/23/2024 20:41:52 08/24/19 25 08/23/2024 COMPL ETE BLOOD COUNT AUTO DIFF eosinophils percent auto 1 % not estb. Not Available [facility] (Lab) [address] [place], [address], 08/23/2024 20:41:52 08/24/19 25 08/23/2024 COMPL ETE BLOOD COUNT AUTO DIFF basophils percent auto 0 % not estb. Not Available [facility] (Lab) [address] [place], [address], 08/23/2024 20:41:52 08/24/19 25 08/23/2024 COMPL ETE BLOOD COUNT AUTO DIFF neutrophils absolute auto 7.4 x10e3 /uL 1.4-7. 0 high Not Available [facility] (Lab) [address] [place], [address], 08/23/2024 20:41:52 08/24/19 25 08/23/2024 COMPL ETE BLOOD COUNT AUTO DIFF immature granulocytes abs auto 0.1 x10e3 /uL 0.0-0. 1 normal Not Available [facility] (Lab) [address] [facility], [place], [address], 08/23/2024 20:41:52 08/24/19 25 08/23/2024 COMPL ETE BLOOD COUNT AUTO DIFF lymphocytes absolute auto 2.7 x10e3 /uL 0.7-3. 1 normal Not Available [facility] (Lab) [address] [facility], [place], [address], 08/23/2024 20:41:52 08/24/19 25 08/23/2024 COMPL ETE BLOOD COUNT AUTO DIFF monocytes absolute auto 0.8 x10e3 /uL 0.1-0. 9 normal Not Available [facility] (Lab) [address] [place], [address], 08/23/2024 20:41:52 08/24/19 25 08/23/2024 COMPL ETE BLOOD COUNT AUTO DIFF eosinophils absolute auto 0.1 x10e3 /uL 0.0-0. 4 normal Not Available [facility] (Lab) [address] [place], [address], 08/23/2024 20:41:52 08/24/19 25 08/23/2024 COMPL ETE BLOOD COUNT AUTO DIFF basophils absolute auto 0.0 x10e3 /uL 0.0-0. 2 normal Not Available [facility] (Lab) [address] [place], [address], 08/23/2024 20:41:52 08/24/19 25 08/23/2024 COMPL ETE BLOOD COUNT AUTO DIFF nucleated red blood cells auto 0 % 0-0 normal Not Available [facility] (Lab) [address] [place], [address], 08/23/2024 20:41:52 08/24/19 25 08/23/2024 HCG QUALI TATIV E URINE HCG qualitative urine NEGATI VE negati ve normal Not Available [facility] (Lab) [address] [place], [address], 08/23/2024 20:46:53 08/24/19 25 08/23/2024 URINA LYSIS W/REF ANTONINA URINE CULT color urine YELLOW yellow normal Not Available [facility] (Lab) [address] [place], [address], 08/23/2024 20:46:54 08/24/19 25 08/23/2024 URINA LYSIS W/REF ANTONINA URINE CULT appearance urine SL CLOUDY clear abnormal Not Available [facility] (Lab) [address] [place], [address], 08/23/2024 20:46:54 08/24/19 25 08/23/2024 URINA LYSIS W/REF ANTONINA URINE CULT pH urine 5.5 5.0 - 7.0 normal Not Available [facility] (Lab) [address] [place], [address], 08/23/2024 20:46:54 08/24/19 25 08/23/2024 URINA LYSIS W/REF ANTONINA URINE CULT specific gravity urine 1.015 1.005- 1.030 normal Not Available [facility] (Lab) [address] [place], [address], 08/23/2024 20:46:54 08/24/19 25 08/23/2024 URINA LYSIS W/REF ANTONINA URINE CULT protein urine NEGATI VE mg/dL neg/tr ajmin normal Not Available [facility] (Lab) [address] [facility], [place], [address], 08/23/2024 20:46:54 08/24/19 25 08/23/2024 URINA LYSIS W/REF ANTONINA URINE CULT glucose urine UA >=1000 mg/dL negati ve abnormal Not Available [facility] (Lab) [address] [facility], [place], [address], 08/23/2024 20:46:54 08/24/19 25 08/23/2024 URINA LYSIS W/REF ANTONINA URINE CULT ketones urine 40 negati ve abnormal Not Available [facility] (Lab) [address] [place], [address], 08/23/2024 20:46:54 08/24/19 25 08/23/2024 URINA LYSIS W/REF ANTONINA URINE CULT occult blood urine NEGATI VE andrew/u L negati ve normal Not Available [facility] (Lab) [address] [place], [address], 08/23/2024 20:46:54 08/24/19 25 08/23/2024 URINA LYSIS W/REF ANTONINA URINE CULT nitrite urine NEGATI VE negati ve normal Not Available [facility] (Lab) [address] [place], [address], 08/23/2024 20:46:54 08/24/19 25 08/23/2024 URINA LYSIS W/REF ANTONINA URINE CULT bilirubin urine NEGATI VE negati ve normal Not Available [facility] (Lab) [address] [place], [address], 08/23/2024 20:46:54 08/24/19 25 08/23/2024 URINA LYSIS W/REF ANTONINA URINE CULT urobilinogen urine 0.2 eu/dL 0.2 - 1.0 normal Not Available [facility] (Lab) [address] [place], [address], 08/23/2024 20:46:54 08/24/19 25 08/23/2024 URINA LYSIS W/REF ANTONINA URINE CULT leukocyte esterase urine NEGATI VE negati ve normal Not Available [facility] (Lab) [address] [place], [address], 08/23/2024 20:46:54 08/24/19 25 08/23/2024 PROTH ROMBI N TIME INR prothrombin time 9.7 secon ds 9.1-12 .0 normal Not Available [facility] (Lab) [address] [facility], [place], [address], 08/23/2024 20:46:55 08/24/19 25 08/23/2024 PROTH ROMBI N TIME INR INR 0.9 0.9-1. 2 normal Not Available [facility] (Lab) [address] [facility], [place], [address], 08/23/2024 20:46:55 08/24/19 25 08/23/2024 DRUG SCREE N URINE opiate screen urine NEGATI VE negati ve normal Not Available [facility] (Lab) [address] [facility], [place], [address], 08/23/2024 21:48:56 08/24/19 25 08/23/2024 DRUG SCREE N URINE barbiturates screen urine NEGATI VE negati ve normal Not Available [facility] (Lab) [address] [place], [address], 08/23/2024 21:48:56 08/24/19 25 08/23/2024 DRUG SCREE N URINE phencyclidin e screen urine NEGATI VE negati ve normal Not Available [facility] (Lab) [address] [place], [address], 08/23/2024 21:48:56 08/24/19 25 08/23/2024 DRUG SCREE N URINE amphetamine screen urine NEGATI VE negati ve normal Not Available [facility] (Lab) [address] [place], [address], 08/23/2024 21:48:56 08/24/19 25 08/23/2024 DRUG SCREE N URINE benzodiazepi bernard screen urine NEGATI VE negati ve normal Not Available [facility] (Lab) [address] [place], [address], 08/23/2024 21:48:56 08/24/19 25 08/23/2024 DRUG SCREE N URINE cocaine screen urine NEGATI VE negati ve normal Not Available [facility] (Lab) [address] [place], [address], 08/23/2024 21:48:56 08/24/19 25 08/23/2024 DRUG SCREE N URINE cannabinoid screen urine NEGATI VE negati ve normal Not Available [facility] (Lab) [address] [place], [address], 08/23/2024 21:48:56 08/24/19 25 08/23/2024 COMPR EHENS JANICE METAB OLIC PANEL sodium 139 mmol/ L 134-14 4 normal Not Available [facility] (Lab) [address] [place], [address], 08/23/2024 21:49:01 08/24/19 25 08/23/2024 COMPR EHENS JANICE METAB OLIC PANEL potassium 4.1 mmol/ L 3.5-5. 2 normal Not Available [facility] (Lab) [address] [place], [address], 08/23/2024 21:49:01 08/24/19 25 08/23/2024 COMPR EHENS JANICE METAB OLIC PANEL chloride 100 mmol/ L 96-106 normal Not Available [facility] (Lab) [address] [place], [address], 08/23/2024 21:49:01 08/24/19 25 08/23/2024 COMPR EHENS JANICE METAB OLIC PANEL carbon dioxide 23 mmol/ L 20-29 normal Not Available [facility] (Lab) [address] [place], [address], 08/23/2024 21:49:01 08/24/19 25 08/23/2024 COMPR EHENS JANICE METAB OLIC PANEL anion gap 20.0 mmol/ L Not Available [facility] (Lab) [address] [place], [address], 08/23/2024 21:49:01 08/24/19 25 08/23/2024 COMPR EHENS JANICE METAB OLIC PANEL blood urea nitrogen 9 mg/dL 6-20 normal Not Available [facility] (Lab) [address], [place], [address], 08/23/2024 21:49:01 08/24/19 25 08/23/2024 COMPR EHENS JANICE METAB OLIC PANEL creatinine 0.91 mg/dL 0.76-1 .27 normal Not Available [facility] (Lab) [address], [place], [address], 08/23/2024 21:49:01 08/24/19 25 08/23/2024 COMPR EHENS JANICE METAB OLIC PANEL glomerular filtration rate 83 mL/mi n/1 Not Available [facility] (Lab) [address], [place], [address], 08/23/2024 21:49:01 08/24/19 25 08/23/2024 COMPR EHENS JANICE METAB OLIC PANEL BUN creatinine ratio 9 9-23 normal Not Available [facility] (Lab) [address] [place], [address], 08/23/2024 21:49:01 08/24/19 25 08/23/2024 COMPR EHENS JANICE METAB OLIC PANEL glucose 127 mg/dL 70-99 high Not Available [facility] (Lab) [address] [place], [address], 08/23/2024 21:49:01 08/24/19 25 08/23/2024 COMPR EHENS JANICE METAB OLIC PANEL osmolality calculated 278 275-29 5 normal Not Available [facility] (Lab) [address] [place], [address], 08/23/2024 21:49:01 08/24/19 25 08/23/2024 COMPR EHENS JANICE METAB OLIC PANEL calcium 9.9 mg/dL 8.7-10 .2 normal Not Available [facility] (Lab) [address] [place], [address], 08/23/2024 21:49:01 08/24/19 25 08/23/2024 COMPR EHENS JANICE METAB OLIC PANEL bilirubin total 0.3 mg/dL 0.0-1. 2 normal Not Available [facility] (Lab) [address] [facility], [place], [address], 08/23/2024 21:49:01 08/24/19 25 08/23/2024 COMPR EHENS JANICE METAB OLIC PANEL AST aspartate aminotransfe rase 15 U/L 0-40 normal Not Available [facility] (Lab) [address] [place], [address], 08/23/2024 21:49:01 08/24/19 25 08/23/2024 COMPR EHENS JANICE METAB OLIC PANEL ALT (alanine aminotransfe rase) 26 IU/L 0-32 normal Not Available [facility] (Lab) [address] [place], [address], 08/23/2024 21:49:01 08/24/19 25 08/23/2024 COMPR EHENS JANICE METAB OLIC PANEL total protein 7.6 g/dL 6.0-8. 5 normal Not Available [facility] (Lab) [address] [place], [address], 08/23/2024 21:49:01 08/24/19 25 08/23/2024 COMPR EHENS JANICE METAB OLIC PANEL albumin level 4.3 g/dL 3.9-4. 9 normal Not Available [facility] (Lab) [address] [place], [address], 08/23/2024 21:49:01 08/24/19 25 08/23/2024 COMPR EHENS JANICE METAB OLIC PANEL globulin 3.3 g/dL 1.5-4. 5 normal Not Available [facility] (Lab) [address] [place], [address], 08/23/2024 21:49:01 08/24/19 25 08/23/2024 COMPR EHENS JANICE METAB OLIC PANEL albumin globulin ratio 1.0 1.2-2. 2 low Not Available [facility] (Lab) [address] [place], [address], 08/23/2024 21:49:01 08/24/19 25 08/23/2024 COMPR EHENS JANICE METAB OLIC PANEL alkaline phosphatase 86 IU/L 44-121 normal Not Available [facility] (Lab) [address] [facility], [place], [address], 08/23/2024 21:49:01 08/24/19 25 08/23/2024 COMPR EHENS JANICE METAB OLIC PANEL hemolysis 0 0-19 Not Available [facility] (Lab) [address] [place], [address], 08/23/2024 21:49:01 08/24/19 25 08/23/2024 COMPR EHENS JANICE METAB OLIC PANEL icterus 1 0.5-4. 9 Not Available [facility] (Lab) [address] [place], [address], 08/23/2024 21:49:01 08/24/19 25 08/23/2024 COMPR EHENS JANICE METAB OLIC PANEL lipemia 12 0-99 Not Available [facility] (Lab) [address] [place], [address], 08/23/2024 21:49:01 08/24/19 25 08/23/2024 ELVIN OL ethanol <=10 mg/dL 0-80 normal Not Available [facility] (Lab) [address] [place], [address], 08/23/2024 21:49:02 08/24/1908/25/2024 HEMOG LOBIN A1C hemoglobin A1C 11.2 % 4.8-5. 6 abnormal Predi abete s: 5.7 - 6.4 Diabe tyra: >6.4 Glyce ramses contr ol for adult s with diabe tyra: <7.0 Perfo rmed at: 01 - [facility] [address], [place] [address] Lab Direc tor: Bradly ann PhD, Phone : [phone] Not Available [facility] (Lab) [address] [facility], [place], [address], 08/25/2024 05:13:16 09/24/1909/24/2024 UA WITH CULTU RE REFLE X specific gravity >=1.03 0 1.005- 1.030 abnormal Not Available [facility] ([facility]) [address] [place], [address], 09/24/2024 13:09:57 09/24/19 25 09/24/2024 UA WITH CULTU RE REFLE X pH 5.5 5.0-7. 5 Not Available [facility] ([facility]) [address] [place], [address], 09/24/2024 13:09:57 09/24/19 25 09/24/2024 UA WITH CULTU RE REFLE X urine-color YELLOW yellow Not Available [facility] ([facility]) [address] [place], [address], 09/24/2024 13:09:57 09/24/19 25 09/24/2024 UA WITH CULTU RE REFLE X appearance CLEAR clear Not Available [facility] ([facility]) [address] [place], [address], 09/24/2024 13:09:57 09/24/19 25 09/24/2024 UA WITH CULTU RE REFLE X WBC esterase NEGATI VE negati ve Not Available [facility] ([facility]) [address] [facility], [place], [address], 09/24/2024 13:09:57 09/24/19 25 09/24/2024 UA WITH CULTU RE REFLE X protein NEGATI VE negati ve/tra ce Not Available [facility] ([facility]) [address] [facility], [place], [address], 09/24/2024 13:09:57 09/24/19 25 09/24/2024 UA WITH CULTU RE REFLE X glucose 3+ negati ve abnormal Not Available [facility] ([facility]) [address] [place], [address], 09/24/2024 13:09:57 09/24/19 25 09/24/2024 UA WITH CULTU RE REFLE X ketones NEGATI VE negati ve Not Available [facility] ([facility]) [address] [place], [address], 09/24/2024 13:09:57 09/24/19 25 09/24/2024 UA WITH CULTU RE REFLE X occult blood NEGATI VE negati ve Not Available [facility] ([facility]) [address] [place], [address], 09/24/2024 13:09:57 09/24/19 25 09/24/2024 UA WITH CULTU RE REFLE X bilirubin NEGATI VE negati ve Not Available [facility] ([facility]) [address] [place], [address], 09/24/2024 13:09:57 09/24/19 25 09/24/2024 UA WITH CULTU RE REFLE X urobilinogen ,semi-qn 0.2 mg/dL 0.2-1. 0 Not Available [facility] ([facility]) [address] [facility], [place], [address], 09/24/2024 13:09:57 09/24/19 25 09/24/2024 UA WITH CULTU RE REFLE X nitrite, urine NEGATI VE negati ve Not Available [facility] ([facility]) [address] [facility], [place], [address], 09/24/2024 13:09:57 09/24/19 25 09/24/2024 UA WITH CULTU RE REFLE X microscopic examination COMMEN T Micro scopi c not indic ated and not perfo rmed. Not Available [facility] ([facility]) [address] [facility], [place], [address], 09/24/2024 13:09:57 09/24/19 25 09/24/2024 UA WITH CULTU RE REFLE X urinalysis reflex COMMEN T This speci men will not refle x to a Urine Cultu re. Not Available [facility] ([facility]) [address] [facility], [place], [address], 09/24/2024 13:09:57 09/24/19 25 09/24/2024 CBC WITH DIFFE RENTI AL/PL ATELE T WBC 12.0 x10e3 /uL 3.4-10 .8 above high normal Not Available [facility] ([facility]) [address] [place], [address], 09/24/2024 13:09:59 09/24/19 25 09/24/2024 CBC WITH DIFFE RENTI AL/PL ATELE T RBC 5.38 x10e6 /uL 3.77-5 .28 above high normal Not Available [facility] ([facility]) [address] [place], [address], 09/24/2024 13:09:59 09/24/19 25 09/24/2024 CBC WITH DIFFE RENTI AL/PL ATELE T hemoglobin 15.8 g/dL 11.1-1 5.9 Not Available [facility] ([facility]) [address] [place], [address], 09/24/2024 13:09:59 09/24/19 25 09/24/2024 CBC WITH DIFFE RENTI AL/PL ATELE T hematocrit 50.6 % 34.0-4 6.6 above high normal Not Available [facility] ([facility]) [address] [place], [address], 09/24/2024 13:09:59 09/24/19 25 09/24/2024 CBC WITH DIFFE RENTI AL/PL ATELE T MCV 94 fL 79-97 Not Available [facility] ([facility]) [address] [place], [address], 09/24/2024 13:09:59 09/24/19 25 09/24/2024 CBC WITH DIFFE RENTI AL/PL ATELE T MCH 29.4 pg 26.6-3 3.0 Not Available [facility] ([facility]) [address] [place], [address], 09/24/2024 13:09:59 09/24/19 25 09/24/2024 CBC WITH DIFFE RENTI AL/PL ATELE T MCHC 31.2 g/dL 31.5-3 5.7 below low normal Not Available [facility] ([facility]) [address] [place], [address], 09/24/2024 13:09:59 09/24/19 25 09/24/2024 CBC WITH DIFFE RENTI AL/PL ATELE T RDW 14.5 % 11.7-1 5.4 Not Available [facility] ([facility]) [address] [place], [address], 09/24/2024 13:09:59 09/24/19 25 09/24/2024 CBC WITH DIFFE RENTI AL/PL ATELE T platelets 270 x10e3 /uL 150-45 0 Not Available [facility] ([facility]) [address] [facility], [place], [address], 09/24/2024 13:09:59 09/24/19 25 09/24/2024 CBC WITH DIFFE RENTI AL/PL ATELE T neutrophils 65 % notest ab. Not Available [facility] ([facility]) [address] [facility], [place], [address], 09/24/2024 13:09:59 09/24/19 25 09/24/2024 CBC WITH DIFFE RENTI AL/PL ATELE T lymphs 25 % notest ab. Not Available [facility] ([facility]) [address] [facility], [place], [address], 09/24/2024 13:09:59 09/24/19 25 09/24/2024 CBC WITH DIFFE RENTI AL/PL ATELE T monocytes 8 % notest ab. Not Available [facility] ([facility]) [address] [facility], [place], [address], 09/24/2024 13:09:59 09/24/19 25 09/24/2024 CBC WITH DIFFE RENTI AL/PL ATELE T eos 1 % notest ab. Not Available [facility] ([facility]) [address] [facility], [place], [address], 09/24/2024 13:09:59 09/24/19 25 09/24/2024 CBC WITH DIFFE RENTI AL/PL ATELE T basos 0 % notest ab. Not Available [facility] ([facility]) [address] [facility], [place], [address], 09/24/2024 13:09:59 09/24/19 25 09/24/2024 CBC WITH DIFFE RENTI AL/PL ATELE T neutrophils (absolute) 7.8 x10e3 /uL 1.4-7. 0 above high normal Not Available [facility] ([facility]) [address] [facility], [place], [address], 09/24/2024 13:09:59 09/24/19 25 09/24/2024 CBC WITH DIFFE RENTI AL/PL ATELE T lymphs (absolute) 3.0 x10e3 /uL 0.7-3. 1 Not Available [facility] ([facility]) [address] [facility], [place], [address], 09/24/2024 13:09:59 09/24/19 25 09/24/2024 CBC WITH DIFFE RENTI AL/PL ATELE T monocytes(ab solute) 1.0 x10e3 /uL 0.1-0. 9 above high normal Not Available [facility] ([facility]) [address] [facility], [place], [address], 09/24/2024 13:09:59 09/24/19 25 09/24/2024 CBC WITH DIFFE RENTI AL/PL ATELE T eos (absolute) 0.1 x10e3 /uL 0.0-0. 4 Not Available [facility] ([facility]) [address] [facility], [place], [address], 09/24/2024 13:09:59 09/24/19 25 09/24/2024 CBC WITH DIFFE RENTI AL/PL ATELE T baso (absolute) 0.0 x10e3 /uL 0.0-0. 2 Not Available [facility] ([facility]) [address] [facility], [place], [address], 09/24/2024 13:09:59 09/24/19 25 09/24/2024 CBC WITH DIFFE RENTI AL/PL ATELE T immature granulocytes 1 % notest ab. Not Available [facility] ([facility]) [address] [facility], [place], [address], 09/24/2024 13:09:59 09/24/19 25 09/24/2024 CBC WITH DIFFE RENTI AL/PL ATELE T immature grans (abs) 0.1 x10e3 /uL 0.0-0. 1 Not Available [facility] ([facility]) [address] [place], [address], 09/24/2024 13:09:59 09/24/19 25 09/23/2024 gluco se, finge rstic k, blood Blood Glucose: mg/dl 89 mg/dL Not Available In-Office Order Internal Use Only DO Not Attach Compendium DO Not Attach Compendium, Do Not Delete/merge, [id number] 09/23/2024 09:31:44 11/01/19 25 10/31/2024 HEMOG LOBIN A1C hemoglobin A1C 6.9 % 4.8-5. 6 above high normal Predi abete s: 5.7 - 6.4 Diabe tyra: >6.4 Glyce ramses contr ol for adult s with diabe tyra: <7.0 Not Available [facility] ([facility]) [address] [place], [address], 11/01/2024 06:14:55 11/01/19 25 10/31/2024 CBC WITH DIFFE RENTI AL/PL ATELE T WBC 11.4 x10e3 /uL 3.4-10 .8 above high normal Not Available [facility] ([facility]) [address] [place], [address], 11/01/2024 06:14:56 11/01/19 25 10/31/2024 CBC WITH DIFFE RENTI AL/PL ATELE T RBC 5.20 x10e6 /uL 3.77-5 .28 Not Available [facility] ([facility]) [address] [place], [address], 11/01/2024 06:14:56 11/01/19 25 10/31/2024 CBC WITH DIFFE RENTI AL/PL ATELE T hemoglobin 15.4 g/dL 11.1-1 5.9 Not Available [facility] ([facility]) [address] [place], [address], 11/01/2024 06:14:56 11/01/19 25 10/31/2024 CBC WITH DIFFE RENTI AL/PL ATELE T hematocrit 48.3 % 34.0-4 6.6 above high normal Not Available [facility] ([facility]) [address] [facility], [place], [address], 11/01/2024 06:14:56 11/01/19 25 10/31/2024 CBC WITH DIFFE RENTI AL/PL ATELE T MCV 93 fL 79-97 Not Available [facility] ([facility]) [address] [facility], [place], [address], 11/01/2024 06:14:56 11/01/19 25 10/31/2024 CBC WITH DIFFE RENTI AL/PL ATELE T MCH 29.6 pg 26.6-3 3.0 Not Available [facility] ([facility]) [address] [facility], [place], [address], 11/01/2024 06:14:56 11/01/19 25 10/31/2024 CBC WITH DIFFE RENTI AL/PL ATELE T MCHC 31.9 g/dL 31.5-3 5.7 Not Available [facility] ([facility]) [address] [facility], [place], [address], 11/01/2024 06:14:56 11/01/19 25 10/31/2024 CBC WITH DIFFE RENTI AL/PL ATELE T RDW 14.0 % 11.7-1 5.4 Not Available [facility] ([facility]) [address] [place], [address], 11/01/2024 06:14:56 11/01/19 25 10/31/2024 CBC WITH DIFFE RENTI AL/PL ATELE T platelets 241 x10e3 /uL 150-45 0 Not Available [facility] ([facility]) [address] [place], [address], 11/01/2024 06:14:56 11/01/19 25 10/31/2024 CBC WITH DIFFE RENTI AL/PL ATELE T neutrophils 63 % notest ab. Not Available [facility] ([facility]) [address] [facility], [place], [address], 11/01/2024 06:14:56 11/01/19 25 10/31/2024 CBC WITH DIFFE RENTI AL/PL ATELE T lymphs 28 % notest ab. Not Available [facility] ([facility]) [address] [facility], [place], [address], 11/01/2024 06:14:56 11/01/19 25 10/31/2024 CBC WITH DIFFE RENTI AL/PL ATELE T monocytes 8 % notest ab. Not Available [facility] ([facility]) [address] [facility], [place], [address], 11/01/2024 06:14:56 11/01/19 25 10/31/2024 CBC WITH DIFFE RENTI AL/PL ATELE T eos 1 % notest ab. Not Available [facility] ([facility]) [address] [facility], [place], [address], 11/01/2024 06:14:56 11/01/19 25 10/31/2024 CBC WITH DIFFE RENTI AL/PL ATELE T basos 0 % notest ab. Not Available [facility] ([facility]) [address] [facility], [place], [address], 11/01/2024 06:14:56 11/01/19 25 10/31/2024 CBC WITH DIFFE RENTI AL/PL ATELE T neutrophils (absolute) 7.1 x10e3 /uL 1.4-7. 0 above high normal Not Available [facility] ([facility]) [address] [place], [address], 11/01/2024 06:14:56 11/01/19 25 10/31/2024 CBC WITH DIFFE RENTI AL/PL ATELE T lymphs (absolute) 3.1 x10e3 /uL 0.7-3. 1 Not Available [facility] ([facility]) [address] [place], [address], 11/01/2024 06:14:56 11/01/19 25 10/31/2024 CBC WITH DIFFE RENTI AL/PL ATELE T monocytes(ab solute) 0.9 x10e3 /uL 0.1-0. 9 Not Available [facility] ([facility]) [address] [facility], [place], [address], 11/01/2024 06:14:56 11/01/19 25 10/31/2024 CBC WITH DIFFE RENTI AL/PL ATELE T eos (absolute) 0.1 x10e3 /uL 0.0-0. 4 Not Available [facility] ([facility]) [address] [place], [address], 11/01/2024 06:14:56 11/01/19 25 10/31/2024 CBC WITH DIFFE RENTI AL/PL ATELE T baso (absolute) 0.0 x10e3 /uL 0.0-0. 2 Not Available [facility] ([facility]) [address] [place], [address], 11/01/2024 06:14:56 11/01/19 25 10/31/2024 CBC WITH DIFFE RENTI AL/PL ATELE T immature granulocytes 0 % notest ab. Not Available [facility] ([facility]) [address] [place], [address], 11/01/2024 06:14:56 11/01/19 25 10/31/2024 CBC WITH DIFFE RENTI AL/PL ATELE T immature grans (abs) 0.0 x10e3 /uL 0.0-0. 1 Not Available [facility] ([facility]) [address] [place], [address], 11/01/2024 06:14:56 02/09/2002/08/2025 HbA1c (hemo globi n A1c), blood HbA1C (hemoglobin A1C), blood 5.5 % low: 4%high : 6% Not Available Not Available 02/16/2025 05:56:49 07/27/19 25 07/26/2024 US, wrist No observ ation record ed. [facility] [address], [place], [address], 08/16/2024 13:51:19 08/24/1908/23/2024 XR, chest , 2 view No observ ation record ed. [facility] Scheduling [address], [place], [address], 09/23/2024 12:41:59 08/24/19 25 08/23/2024 elect rocar diogr am, routi ne ECG with at least 12 leads ; lorrie ng only, witho ut inter preta tion and repor t (PROC ) No observ ation record ed. [facility] Scheduling [address], [place], [address], 09/23/2024 09:30:20 08/24/19 25 08/23/2024 elect rocar diogr am No observ ation record ed. [facility] Scheduling [address], [place], [address], 09/26/2024 12:12:12 08/24/1908/23/2024 elect rocar diogr am, routi ne ECG with at least 12 leads ; lorrie ng only, witho ut inter preta tion and repor t (PROC ) No observ ation record ed. [facility] Scheduling [address], [place], [address], 09/23/2024 09:30:19 10/26/19 10/25/2024 MAMMO , scree teo, digit al, bilat eral No observ ation record ed. [address], [place], [address], 10/31/2024 09:27:57 11/19/19 25 10/25/2024 MAMMO , scree teo, digit al, bilat eral No observ ation record ed. [address], [place], [address], 12/06/2024 10:19:57 11/19/19 25 11/18/2024 US, breas t No observ ation record ed. [address], [place], [address], 12/06/2024 10:19:57 01/24/20 25 01/23/2025 XR, chest , 2 view No observ ation record ed. [facility] Scheduling [address], [place], [address], 01/26/2025 13:06:44 01/24/20 25 01/23/2025 XR, chest No observ ation record ed. [facility] Scheduling [address], [place], [address], 01/26/2025 12:58:24 01/25/2001/23/2025 elect ashutosh andradegr am, routi ne ECG with at least 12 leads ; lorrie ng only, witho ut inter preta tion and repor t (PROC ) No observ ation record ed. [facility] Scheduling [address], [place], [address], 01/26/2025 13:06:58 02/17/20 25 02/16/2025 XR, wrist , 3 or more view No observ ation record ed. [facility] [address], [place], [address], 02/20/2025 16:08:44 Result Notes None recorded. Problems Name Problem SNOMED Code Status Onset Date Resolution Date Notes Provider Name and Address Organization Details Recorded Time Elevated blood-pressur e reading without diagnosis of hypertension 112674606 Active Kirk uL MD Attn: Marcusarianna husain,[address] [facility], [place], [address], [place] [facility] 0 15:46:41 Tobacco user 099783914 Active Kirk Lu MD Attn: Maynor g,[address] [facility], [place], [address], [place] [facility] 0 15:46:41 Bipolar disorder 47334509 Active Kirk Lu MD Attn: Maynor g,[address] [facility], [place], [address], [place] [facility] 0 15:46:41 Laboratory test result abnormal 699262145 Active Kirk Lu MD Attn: Maynor g,[address] [facility], [place], [address], [place] [facility] 0 15:46:41 History of hypertension 303103658 Active 2017 Kirk Lu MD Attn: Maynor g,[address] [facility], [place], [address], [place] [facility] 0 15:46:41 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 671508740 Active 2017 Kirk Lu MD Attn: Maynor g,[address] [facility], [place], [address], [place] [facility] 2 09:47:46 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 443992998 Active 2017 Kirk Lu MD Attn: Maynor g,[address] [facility], [place], [address], [place] [facility] 2 09:47:43 Low back pain 538713700 Active 2017 Kirk Lu MD Attn: Accountarianna g,[address] [facility], [place], [address], [place] [facility] 0 15:46:41 Influenza vaccination declined 882807691 Active 2017 Kirk Lu MD Attn: Marcusarianna husain,[address] [facility], [place], [address], [place] [facility] 0 15:46:41 Nicotine dependence 56798854 Active 2018 Kirk Lu MD Attn: Accountin g,[address] [facility], [place], [address], [place] [facility] 0 15:46:41 SARS-CoV-2 mRNA vaccine declined 4314422720 Active 2021 Kirk Lu MD Attn: Accountarianna g,[address] [facility], [place], [address], [place] [facility] 2 10:09:14 Impaired fasting glycemia 353792113 Active 2021 Kirk Lu MD Attn: Accountarianna g,[address] [facility], [place], [address], [place] [facility] 2 10:02:03 Disorder of lipid metabolism 281211754 Active 2021 Kirk Lu MD Attn: Marcusarianna g,[address] [facility], [place], [address], [place] [facility] 2 10:02:11 Degeneration of lumbar intervertebra l disc 45317317 Active 2021 Kirk Lu MD Attn: Accountin g,[address] [facility], [place], [address], [place] [facility] 2 10:04:44 Family history of diabetes mellitus 540588194 Active 2021 Kirk Lu MD Attn: Accountin g,[address] [facility], [place], [address], [place] [facility] 2 10:12:27 Benign essential hypertension 4952526 Active 2022 Kirk Lu MD Attn: Maynor husain,[address] [facility], [place], [address], [facility] 3 10:37:23 History of total hysterectomy 923937784 Active 2022 Kirk Lu MD Attn: Marcusarianna husain,[address] [facility], [place], [address], [facility] - [facility] 3 11:09:31 Snoring 67454826 Active 2023 Kirk Lu MD Attn: Marcusarianna husain,[address] [facility], [place], [address], [facility] - [facility] 4 10:16:00 Type 2 diabetes mellitus without complication 911729204 Active 2024 Kirk Lu MD Attn: Maynor husain,[address] [facility], [place], [address], [place] [facility] 5 15:15:41 Leukocytosis 968294469 Active 2024 Kirk Lu MD Attn: Maynor husain,[address] [facility], [place], [address], [facility] - [facility] 5 10:20:50 Mammography abnormal 368789053 Active 2024 Kirk Lu MD Attn: Marcusarianna husain,[address] [facility], [place], [address], [place] [facility] 5 13:49:21 Problem Notes None recorded. Procedures Surgical History Date Name Laterality Status Provider Name and Address Organization Details Recorded Time 5 EXCISION, GANGLION CYST, WRIST/HAND, PRIMARY (SURG) completed Kirk Lu MD Attn: Accounting,[address] [place], [address], [place] [facility] 02/03/2025 09:02:26 5 EXCISION, GANGLION CYST, WRIST/HAND, PRIMARY (SURG) completed Kirk Lu MD Attn: Accounting,[address], [place], [address], [facility] - [facility] 02/20/2025 19:45:10 5 Diabetic Foot Exam completed Kirk Lu MD Attn: Accounting,[address], [place], [address], [facility] - [facility] 07/20/2024 13:45:57 7 Tubal Ligation completed Robina Rose [place] - [facility] 10/24/2016 16:30:05 Imaging Results None recorded. Procedure Notes None recorded. Medical Equipment None Reported. Allergies No known drug allergies Medications Name Sig Start Date Stop Date Status Note LastModified by Organization Details LastModified Time carisoprod ol 350 mg tablet TAKE 1 TABLET BY MOUTH THREE TIMES DAILY 03/12 completed Not Available Not Available Not Available insulin syringe U-100 with needle 1/2 mL 29 USE DIRECTED active Not Available Not Available No t Available cyclobenza arnoldo 10 mg tablet 10/24 completed Not Available Not Available Not Available amoxicilli n 500 mg capsule 07/20 completed Not Available Not Available Not Available methocarba mol 500 mg tablet 03/30 completed Not Available Not Available Not Available azelastine 0.05 % eye drops INSTILL 1 DROP INTO AFFECTED EYE(S) BY OPHTHALM IC ROUTE 2 TIMES PER DAY (L. eye) 02/16 completed Not Available Not Available Not Available clindamyci n HCl 300 mg capsule 11/15 completed Not Available Not Available Not Available trazodone 50 mg tablet TAKE 1 TABLET BY MOUTH DAILY AT BEDTIME NEEDED FOR SLEEP 06/21 completed Not Available Not Available Not Available azithromyc in 250 mg tablet TAKE 2 TABLETS (500 MG) BY ORAL ROUTE ONCE DAILY FOR 1 DAY THEN 1 TABLET (250 MG) BY ORAL ROUTE ONCE DAILY FOR 4 DAYS 11/15 completed Not Available Not Available Not Available ibuprofen 800 mg tablet 11/13 completed Not Available Not Available Not Available hydrocodon e 5 mg-acetami nophen 325 mg tablet TAKE 1 TABLET BY MOUTH EVERY 4 HOURS NEEDED FOR FOR PAIN active Not Available Not Available No t Available prednisone 20 mg tablet 12/30 completed Not Available Not Available Not Available terconazol e 0.8 % vaginal cream 03/14 completed Not Available Not Available Not Available clindamyci n HCl 150 mg capsule 11/15 completed Not Available Not Available Not Available penicillin V potassium 500 mg tablet TAKE 1 TABLET BY MOUTH EVERY 6 HOURS FOR 10 DAYS 11/13 completed Not Available Not Available Not Available metronidaz ole 500 mg tablet 10/24 completed Not Available Not Available Not Available acetaminop hen 300 mg-codeine 30 mg tablet 11/15 completed Not Available Not Available Not Available insulin syringe U-100 with needle 1 mL 29 gauge x 11/16 USE TO INJECT INSULIN THREE TIMES DAILY active Not Available Not Available No t Available acyclovir 400 mg tablet 02/16 completed Not Available Not Available Not Available hydrocodon e 10 mg-acetami nophen 325 mg tablet TAKE 1/2 TO 1 TABLET BY MOUTH THREE TIMES DAILY NEEDED FOR PAIN 11/13 completed Not Available Not Available Not Available tramadol 50 mg tablet Take 2 tablets every 8 hours by oral route as needed for 7 days. 07/20 completed Not Available Not Available Not Available guaifenesi n 100 mg/5 mL oral liquid Take 10 mL every 4 hours by oral route as needed for 5 days. 11/15 completed Not Available Not Available Not Available amoxicilli n 500 mg tablet TAKE 1 TABLET BY MOUTH EVERY 6 HOURS DIRECTED 03/30 completed Not Available Not Available Not Available trifluridi ne 1 % eye drops 02/16 completed Not Available Not Available Not Available oxycodone- acetaminop hen 5 mg-325 mg tablet TAKE 1 TABLET BY MOUTH EVERY 6 HOURS NEEDED FOR PAIN 03/12 completed Not Available Not Available Not Available amitriptyl ine 25 mg tablet TAKE 1 TABLET BY MOUTH NIGHTLY NEEDED FOR SLEEP 03/12 completed Not Available Not Available Not Available trazodone 100 mg tablet TAKE 1/2 TO 1 TABLET BY MOUTH AT BEDTIME NEEDED FOR SLEEP 08/16 completed Not Available Not Available Not Available OneTouch Ultra Test strips TEST DIRECTED DAILY active Not Available Not Available No t Available baclofen 10 mg tablet 12/30 completed Not Available Not Available Not Available trazodone 150 mg tablet TAKE 1 TABLET BY MOUTH AT BEDTIME NEEDED FOR SLEEP 09/23 completed Not Available Not Available Not Available nitrofuran toin macrocryst al 100 mg capsule 03/14 completed Not Available Not Available Not Available misoprosto l 200 mcg tablet 10/24 completed Not Available Not Available Not Available gabapentin 300 mg capsule TAKE 1 CAPSULE BY MOUTH THREE TIMES DAILY active Not Available Not Available No t Available diclofenac sodium 75 mg tablet,del ayed release Take 1 tablet twice a day by oral route as needed for 10 days. 08/17 completed Not Available Not Available Not Available ampicillin 250 mg capsule 03/14 completed Not Available Not Available Not Available hydrochlor othiazide 25 mg tablet TAKE 1 TABLET BY MOUTH EVERY DAY DIRECTED active Not Available Not Available No t Available mirtazapin e 15 mg tablet TAKE 1/2 TO 1 TABLET BY MOUTH DAILY AT BEDTIME active Not Available Not Available No t Available Novolog U-100 Insulin aspart 100 unit/mL subcutaneo us solution INJECT 7 UNITS UNDER THE SKIN THREE TIMES DAILY WITH MEALS 12/06 completed Not Available Not Available Not Available azelastine 137 mcg (0.1 %) nasal spray USE 2 SPRAYS IN EACH NOSTRIL TWICE DAILY NEEDED active Not Available Not Available No t Available ibuprofen 600 mg tablet TAKE 1 TABLET BY MOUTH THREE TIMES DAILY. TAKE WITH FOOD. 03/12 completed Not Available Not Available Not Available methylpred nisolone 4 mg tablets in a dose pack FOLLOW PACKAGE DIRECTIO NS 03/30 completed Not Available Not Available Not Available metformin ER 500 mg tablet,ext ended release 24 hr TAKE 1 TABLET BY MOUTH TWICE DAILY active Not Available Not Available No t Available lamotrigin e 100 mg tablet TAKE 2 TABLETS BY MOUTH DAILY active Not Available Not Available No t Available naproxen 500 mg tablet Take 1 tablet twice a day by oral route as needed for 10 days. 07/20 completed Not Available Not Available Not Available progestero ne micronized 100 mg capsule TAKE 1 CAPSULE BY MOUTH EVERY DAY AT BEDTIME 11/13 completed Not Available Not Available Not Available amoxicilli n 875 mg-potassi um clavulanat e 125 mg tablet 03/12 completed Not Available Not Available Not Available Novolog PenFill U-100 Insulin aspart 100 unit/mL subcutaneo us cartridg Inject 7 units 3 times a day by subcutan eous route with meal(s) for 30 days, for DM. 12/26 completed Not Available Not Available Not Available Novolog FlexPen U-100 Insulin aspart 100 unit/mL (3 mL) subcutaneo us INJECT 7 UNITS UNDER THE SKIN THREE TIMES DAILY WITH MEALS FOR DIABETES MELLITUS active Not Available Not Available No t Available aripiprazo le 5 mg tablet TAKE 1 TABLET BY MOUTH DAILY AT NIGHT active Not Available Not Available No t Available BD SafetyGlid e Insulin Syringe 0.5 mL 29 gauge x 1/2 USE DIRECTED active Not Available Not Available No t Available nitrofuran toin monohydrat e/macrocry stals 100 mg capsule 03/14 completed Not Available Not Available Not Available chlorhexid ine gluconate 0.12 % mouthwash 11/15 completed Not Available Not Available Not Available Tylenol 09/23 completed Not Available Not Available Not Available aripiprazo le 2 mg tablet TAKE 1 TABLET BY MOUTH AT NIGHT 09/08 completed Not Available Not Available Not Available BD Insulin Syringe Ultra-Fine 0.5 mL 31 gauge x 5/16 USE TO INJECT NOVOLOG INSULIN THREE TIMES A DAY DIRECTED active Not Available Not Available No t Available Xulane 150 mcg-35 mcg/24 hr transderma l patch 10/24 completed Not Available Not Available Not Available Jardiance 25 mg tablet TAKE 1 TABLET BY MOUTH EVERY DAY AT BEDTIME FOR DIABETES MELLITUS active Not Available Not Available No t Available Basaglar KwikPen U-100 Insulin 100 unit/mL (3 mL) subcutaneo us ADMINIST ER 23 UNITS UNDER THE SKIN EVERY DAY AT DINNER FOR DIABETES MELLITUS active Not Available Not Available No t Available OneTouch Ultra2 Meter DIRECTED active Not Available Not Available No t Available OneTouch Delica Plus Lancet 33 gauge USE DIRECTED ONCE DAILY active Not Available Not Available No t Available Ozempic 2 mg/dose (8 mg/3 mL) subcutaneo us pen injector INJECT 2 MG UNDER THE SKIN ONCE A WEEK active Not Available Not Available No t Available Dexcom G7 [employer] Worker USE DIRECTED active Not Available Not Available No t Available Dexcom G7 Sensor device USE TO CHECK BLOOD GLUCOSE CHANGE EVERY 10 DAYS active Not Available Not Available No t Available Ozempic 0.25 mg or 0.5 mg (2 mg/3 mL) subcutaneo us pen injector Inject 0.5 mg every week by subcutan eous route as directed for 28 days, for DM. active [address] Riggs Not Available Not Available Not Available Vitals Date Recorded Body height Body mass index (BMI) Body weight Heart rate Body temperature Pain severity - 0-10 verbal numeric rating [Score] - Reported Systolic And Diastolic Provider Name and Address Organization Details Last Updated DateTime 5 162.56 cm 36.5 kg/m2 07264.4 6 g 68 /min 97.6 [degF] 0 109/70 mm[Hg] Damaris Jean MA [facility] 5 16:24:57 Date Recorded Body height Body mass index (BMI) Body weight Body temperature Heart rate Oxygen saturation Oxygen saturation in Arterial blood by Pulse oximetry Systolic And Diastolic Provider Name and Address Organization Details Last Updated DateTime 5 162.56 cm 36.7 kg/m2 80345.1 3 g 97.9 [degF] 79 /min 97 % 97 % 98/70 mm[Hg] Marti Mcclelland [facility] 5 09:26:21 Date Recorded Body height Body mass index (BMI) Body weight Heart rate Oxygen saturation Oxygen saturation in Arterial blood by Pulse oximetry Systolic And Diastolic Provider Name and Address Organization Details Last Updated DateTime 5 162.56 cm 36.2 kg/m2 18964.9 9 g 80 /min 95 % 95 % 120/72 mm[Hg] Ngoc Reynaga MA [facility] 5 09:24:17 Date Recorded Body height Body mass index (BMI) Body weight Respiratory rate Heart rate Oxygen saturation Oxygen saturation in Arterial blood by Pulse oximetry Body temperature Systolic And Diastolic Provider Name and Address Organization Details Last Updated DateTime 5 162.56 cm 35.7 kg/m2 23406.1 4 g 18 /min 84 /min 97 % 97 % 98.1 [degF] 92/78 mm[Hg] Samantha Flores MA [facility] 5 09:46:03 Date Recorded Body height Body mass index (BMI) Body weight Heart rate Body temperature Pain severity - 0-10 verbal numeric rating [Score] - Reported Systolic And Diastolic Provider Name and Address Organization Details Last Updated DateTime 5 162.56 cm 34.7 kg/m2 79598.7 4 g 84 /min 98.6 [degF] 0 154/81 mm[Hg] Damaris Jean [place] - [facility] 5 12:07:26 Social History Question Answer Notes LastModified by Organizat ion Details LastModified Time Tobacco Smoking Status Current Some Day Smoker vape and maybe 3 cigs a day Robina Rose MA [facility], [place] [facility] 03/25/2023 12:17:01 Do You Have An Advance Directive? No Information not available 03/14/2015 What Is Your Level Of Caffeine Consumption? Moderate Information not available 08/17/2018 How Much Tobacco Do You Chew? None Information not available 08/17/2018 Have You Been To An Area Known To Be High Risk For COVID-19? No Information not available 11/16/2019 What Type Of Diet Are You Following? REGULAR Information not available 08/17/2018 Are There Any Guns Present In Your Home? No Information not available 03/14/2015 Hard Of Hearing Or Deaf In One Or Both Ears? No Information not available 03/14/2015 Legally Blind In One Or Both Eyes? No Information not available 03/14/2015 Do You Have A Medical Power Of Searchlight Operator? No Information not available 02/16/2025 What Was The Date Of Your Most Recent Tobacco Screening? 02/16/2025 Information not available 02/16/2025 Performs Monthly Self-breast Exam? No Information not available 03/14/2015 Seat Belts Used Routinely Yes Information not available 03/14/2015 Smoke Alarm In Home Yes Information not available 03/14/2015 How Much Tobacco Do You Smoke? 0.25 PPD Information not available 03/14/2015 Do You Use Sunscreen Routinely? No Information not available 03/14/2015 Has Tobacco Cessation Counseling Been Provided? Yes Information not available 08/17/2018 On What Date Was Tobacco Cessation Counseling Provided? 12/06/2024 Information not available 12/06/2024 How Many Years Have You Smoked Tobacco? 8 Information not available 01/02/2017 Sex: Unknown Functional Status Question Answer Note LastModified by Organizat ion Details LastModified Time Do you use any illicit or recreational drugs? No Information not available 12/06/2024 Do you or have you ever used any other forms of tobacco or nicotine? Yes Information not available 12/06/2024 What is your level of alcohol consumption? Occasional Information not available 08/17/2018 Do you or have you ever used smokeless tobacco? 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 Current user of electronic cigarettes Information not available 12/06/2024 Mental Status None recorded. Family History Relationship Description Onset Age of this Age Resolved Age Notes LastModified by Organization Details LastModified Time Mother Malignant neoplasm of breast asavala Not available 2014 15:54:59 Mother Hypertensive disorder asavala Not available 2014 15:54:59 Father Diabetes mellitus asavala Not available 2014 15:54:59 Brother Attention deficit hyperactivit y disorder asavala Not available 03/14 15:54:59 Sister Attention deficit hyperactivit y disorder asavala Not available 03/14 15:54:59 Medical History Condition Response Coronary Artery Disease N Other Y High Blood Pressure N Atrial Fibrillation N Kidney or Bladder Problems N Thyroid Problems N GI Problems N Depression Y COPD N Blood Clots N Skin Problems N Anemia N Heart Attack ([place]) N Anxiety Disorder N Diabetes N Muscle, Joint, or Bone Problems Y Seizures/Epilepsy N Acid Reflux (GERD) N Cancer N Stroke N Asthma N Allergies N High Cholesterol N Hepatitis N Liver Disease N Headaches N Heart Failure N Osteoporosis N Gynecological History Statement/Question Response Current Control Method Hysterectom y Date of LMP 05/04/2015 Obstetrics History GPAL:G 0 P 0 0 0 0 Immunizations Vaccine Type Date Status Note Provider Nam samm and Address Organization Details Recorded Time COVID-19 vaccine, vector-nr, rS-Ad26, PF, 0.5 mL 1 completed [facility], [place] [facility] 10/26/2020 10:10:56 MMR 8 completed Kirk Lu MD Attn: Accounting,[address], [place], [address], [place] [facility] 03/12/2022 10:00:08 DTP 0 completed Kirk Lu MD Attn: Accounting,[address], [place], [address], [place] [facility] 03/12/2022 10:00:08 OPV, trivalent 8 completed Kirk Lu MD Attn: Accounting,[address], [place], [address], [place] [facility] 03/12/2022 10:00:08 DTP 8 completed Kirk Lu MD Attn: Accounting,[address], [place], [address], [place] [facility] 03/12/2022 10:00:08 OPV, trivalent 0 completed Kirk Lu MD Attn: Accounting,[address], [place], [address], [place] [facility] 03/12/2022 10:00:08 DTP 2 completed Kirk Lu MD Attn: Accounting,[address], [place], [address], [place] [facility] 03/12/2022 10:00:08 DTP 8 completed Kirk Lu MD Attn: Accounting,[address], [place], [address], [place] [facility] 03/12/2022 10:00:08 Hib, unspecified formulation 0 completed Kirk Lu MD Attn: Accounting,[address], [place], [address], [place] [facility] 03/12/2022 10:00:08 OPV, trivalent 2 completed Kirk Lu MD Attn: Accounting,[address] [facility], [place], [address], [place] [facility] 03/12/2022 10:00:08 DTP 8 completed Kirk Lu MD Attn: Accounting,[address] [facility], [place], [address], [place] [facility] 03/12/2022 10:00:08 OPV, trivalent 8 completed Kirk Lu MD Attn: Accounting,[address] [facility], [place], [address], [facility] - [facility] 03/12/2022 10:00:08 MMR 2 completed Kirk Lu MD Attn: Accounting,[address] [facility], [place], [address], [place] [facility] 03/12/2022 10:00:08 Influenza, split virus, quadrivalent, PF 7 completed Not Available [facility] 05/21/2019 02:33:56 Tdap 8 completed Not Available [facility] 05/21/2019 02:46:05 Influenza, split virus, quadrivalent, PF 3 completed Kirk Lu MD Attn: Accounting,[address] [facility], [place], [address], [place] [facility] 03/25/2023 12:49:52 Past Encounters Encounter ID Performer Location Encounter Start Date Encounter Closed Date Diagnosis/Indication Diagnosis SNOMED-CT Code Diagnosis ICD10 Code Diagnosis IMO Codes Diagnosis Note [id number] Kirk Lu MD [facility] (Adult Med) [address] [place] [address] 03/14/2015 15:15:39 03/15/2015 09:14:25 General examination of patient 582473606 Z00.00 29 y/o BF who was last seen 05/03/2013 , she went to her Gynecologi for her 6 week post-jam check up and she was told that her BP was high. Elevated blood-pressure reading without diagnosis of hypertension 233627804 R03.0 Low salt diet, monitor BP closely Tobacco user 428485716 Z 72.0 Cessation was discussed Bipolar disorder 6921170 4 F31.9 She needs to establish care with a Psychiatri st [id number] MD Kam Park (Adult Med) [address] [place] [phone] 05/07/2015 15:44:50 05/08/2015 18:19:28 Laboratory test result abnormal 407034225 R89.9 R94.6 Labs 03/16/2015 were reviewed, she has no urinary symptoms, I will repeat her TSH. Elevated blood-pressure reading without diagnosis of hypertension 889015789 R03.0 Low salt diet, normal BP reading today [id number] MD Kam Park (Adult Med) [address] [place] [phone] 10/24/2016 16:22:52 10/27/2016 10:21:58 Adult health examination 137682317 Z00.01 Headache 19541901 R51 Bipolar disorder 0766169 4 F31.9 She still needs to establish care with a Psychiatri [id number] MD Kam Park (Adult Med) [address] [place] [phone] 0 11/21/2016 14:38:29 11/21/2016 15:10:54 Benign essential hypertension 1587959 I10 Low salt diet and start HCTZ Toothache 81635661 K08.8 9 She states that her pain is controlled with OTC meds. [id number] MD Kam Park (Adult Med) [address] [place] [phone] 0 01/02/2017 14:18:56 01/02/2017 15:03:50 Impaired fasting glycemia 511163160 R73.01 Disorder o f lipid metabolism 423216585 E78.9 Administra tion of influenza vaccine 07760636 Z23 Benign ess ential hypertension 1383475 I10 Stable on HCTZ [id number] MD Kam Park (Adult Med) [address] [place] [address]46[address] 0 12/30/2017 15:22:11 12/30/2017 16:38:25 Sciatica 09795231 M54.32 Nicotine dependence 5629 4008 F17.200 Bipolar disorder 5476931 4 F31.9 She still needs to establish care with a Psychiatri [facility] ex amination of patient 523144840 Z00.01 History of hypertension 082535608 Z86.79 Ptosis of eyelid 6279754 0 H02.402 Requires a tetanus booster 496582830 Z28.3 Allergic conjunctivitis 124824857 H10.12 Screening for malignant neoplasm of cervix 150733858 Z12.4 [id number] MD Kam Park (Adult Med) [address] [place] [address] [phone] 0 02/16/2018 09:33:47 02/16/2018 09:57:13 Benign essential hypertension 1718829 I10 Stable on HCTZ 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 046193057 M99.59 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 537445066 M99.39 Low back pain 894667934 M54.5 She has improved after PT Influenza vaccination declined 416200784 Z28.21 [id number] MD Kam Park (Adult Med) [address] [place] [id number] 08/17/2018 09:50:55 08/18/2018 09:59:57 Benign essential hypertension 1650591 I10 Stable on HCTZ Upper resp iratory infection 30281830 J06.9 Nicotine dependence 5629 4008 F17.200 Influenza vaccination declined 430862782 Z28.21 [id number] MD Kam Park (Adult Med) [address] [place] [phone] 0 11/16/2019 14:58:07 11/17/2019 12:18:38 Low back pain 702899066 M54.5 She had previously improved after PTILPMPTra madol, side effects were discussedM RIPT 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 070976220 M99.59 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 603484860 M99.39 Bipolar disorder 7013121 4 F31.9 She still needs to establish care with a Psychiatri [facility] ex amination of patient 619434175 Z00.01 Nicotine dependence 5629 4008 F17.200 Tooth disorder 035951966 K08.9 [id number] MD Kam Park (Adult Med) [address] [place] [phone] 0 10/29/2021 09:22:14 10/30/2021 10:47:51 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 122839528 M99.39 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 227435791 M99.59 Body mass index 30+ - obesity 586747684 Z68.30 Benign ess ential hypertension 8234825 I10 Restart HCTZ General ex amination of patient 996842051 Z00.01 Medication monitoring 39 3831684 Z51.81 Low back pain 712566767 M54.59 She has been to PTShe has an abnormal MRI from 01/18/2018P ain management Screening for malignant neoplasm of cervix 644301151 Z12.4 Thoracic back pain 53789 8004 M54.6 SARS-CoV-2 mRNA vaccine declined 7093293269 Z28.21 [id number] MD Kam Park (Adult Med) [address] [place] [address] [phone] 0 03/12/2022 09:23:33 03/13/2022 15:53:21 Impaired fasting glycemia 155835834 R73.01 Discussed Disorder o f lipid metabolism 716994255 E78.9 Discussed Tachycardia 7406670 R00. 0 Serum crea tinine above reference range 917944549 R79.89 Degenerati on of lumbar intervertebral disc 24059511 M51.36 Screening for malignant neoplasm of cervix 186202624 Z12.4 Family his tory of diabetes mellitus 308752547 Z83.3 Influenza vaccination declined 631049288 Z28.21 [id number] MD Kam Park (Adult Med) [address] [place] [address] [phone] 0 09/08/2022 09:25:06 09/10/2022 12:38:33 Impaired fasting glycemia 812542299 R73.01 Discussed General ex amination of patient 589539679 Z00.01 Medication monitoring 39 9721623 Z51.81 Benign ess ential hypertension 8285833 I10 Continue HCTZ Immunization advised 310 872373 Z71.9 SARS-CoV-2 vaccination declined 6138605999 Z28.21 [id number] MD Kam Park (Adult Med) [address] [place] [phone] 0 11/13/2022 09:57:35 11/17/2022 13:51:40 Impaired fasting glycemia 018360126 R73.01 Discussed History of total hysterectomy 381537161 Z90.966 [id number] MD Kam Park (Adult Med) [address] [place] [address] [phone] 0 03/25/2023 12:07:20 03/27/2023 15:27:08 Impaired fasting glycemia 230671312 R73.01 Administra tion of influenza vaccine 59370836 Z23 Upper resp iratory infection 89314339 J06.9 Depressive disorder 3548 9007 F32.A Medication monitoring 39 2309936 Z51.81 Body mass index 30+ - obesity 605125774 Z68.34 [id number] MD Kam Park (Adult Med) [address] [place] [address] 03020-204 0 03/30/2024 09:19:03 04/05/2024 10:06:49 Impaired fasting glycemia 306677572 R73.01 Discussed Influenza vaccination declined 119963471 Z28.21 Unintentio nal weight gain 1964135889 33984 R63.5 General ex amination of patient 702886178 Z00.01 Snoring 87115805 R06.83 [id number] MD Kam Park (Adult Med) [address] [place] [address] [phone] 06/21/2024 09:59:41 06/24/2024 09:34:42 Follow-up visit 726321318 Z09 History of food allergy 439876194 Z91.018 Ganglion c yst of left wrist 1104491751 69264 M67.432 Body mass index 30+ - obesity 870827308 Z68.39 Obesity 067127619 E66.9 [id number] MD Kam Park (Adult Med) [address] [place] [address] [phone] 0 07/20/2024 09:28:19 07/21/2024 09:36:38 Type 2 diabetes mellitus without complication 514097523 E11.9 Labs 06/21/2024 HBA1C 6.8%Start Metformin, Lactic acidosis and GI side effects were discussed. DM diet [id number] MD Kam Park (Adult Med) [address] [place] [address] [phone] 0 08/16/2024 13:40:22 08/17/2024 14:00:58 Type 2 diabetes mellitus without complication 488835356 E11.9 Continue MetforminC ontinue Basaglar 25 units AMStart Novolog 10 units with each mealStart Jardiance, side effects were discussed including but not limited to necrotizin g fascitis, recurrent UTIs, dehydratio n and candidiasi sEndocrino logy. OV 07/20/2024L abs 06/21/2024 HBA1C 6.8%Start Metformin, Lactic acidosis and GI side effects were discussed. DM diet [id number] Sheng Sanders MD [facility] [address] [address] 08/22/2024 16:09:14 08/22/2024 16:58:34 Nicotine dependence 61398260 F17.200 Benign ess ential hypertension 9989255 I10 Ganglion c yst of left wrist 7403749316 88981 M67.655 7492724 Volar min discussion of treatment options, including risks and benefits Bipolar disorder 8687755 4 F31.9 [id number] MD Kam Park (Adult Med) [address] [place] [address] [phone] 0 09/23/2024 08:58:26 09/27/2024 11:22:42 Type 2 diabetes mellitus without complication 533185170 E11.9 HBA1C 11.2%Compl iant with her Jardiance Metformin, Basaglar and NovologSta rt Ozempic, GI side effects were discussed in detail, she has no personal or FHX. of DM. OV 08/16/2024 ontinue MetforminC ontinue Basaglar 25 units AMStart Novolog 10 units with each mealStart Jardiance, side effects were discussed including but not limited to necrotizin g fascitis, recurrent UTIs, dehydratio n and candidiasi sEndocrino logy. OV 07/20/2024L abs 06/21/2024 HBA1C 6.8%Start Metformin, Lactic acidosis and GI side effects were discussed. DM diet Preoperative state 10473 002 Z01.818 204165 CXR normalCBC WBC 11UA cloudyEKG poor R wave progressio n Leukocytosis 325954299 D 72.829 096137 Recheck Abnormal urinalysis 1672 30108 R82.90 [id number] MD Kam Park (Adult Med) [address] [place] [phone] 0 10/31/2024 08:48:02 11/01/2024 13:06:37 Type 2 diabetes mellitus without complication 269881157 E11.9 Decrease Basaglar to 27units HSIncrease Ozempic to 0.5 mg weeklyCont inue all the other medication s OV 09/23/2024H BA1C 11.2%Compl iant with her Jardiance Metformin, Basaglar and NovologSta rt Ozempic, GI side effects were discussed in detail, she has no personal or FHX. of DM. OV 08/16/2024 ontinue MetforminC ontinue Basaglar 25 units AMStart Novolog 10 units with each mealStart Jardiance, side effects were discussed including but not limited to necrotizin g fascitis, recurrent UTIs, dehydratio n and candidiasi sEndocrino logy. OV 07/20/2024L abs 06/21/2024 HBA1C 6.8%Start Metformin, Lactic acidosis and GI side effects were discussed. DM diet Leukocytosis 369231451 D 72.829 457608 Meds?Smoki ng?Recheck [id number] MD Kam Park (Adult Med) [address] [place] [phone] 0 12/06/2024 09:33:14 12/07/2024 08:53:11 Type 2 diabetes mellitus without complication 290421853 E11.9 Labs 10/31/2024 HBA1C 6.9%.Manag ed by the endocrinol ogist, adjustment s were made on 11/01/2024; Basaglar 20, Novolog 7 and Metformin BID. OV 10/31/2024D ecrease Basaglar to 27units HSIncrease Ozempic to 0.5 mg weeklyCont inue all the other medication s OV 09/23/2024H BA1C 11.2%Compl iant with her Jardiance Metformin, Basaglar and NovologSta rt Ozempic, GI side effects were discussed in detail, she has no personal or FHX. of DM. OV 08/16/2024 ontinue MetforminC ontinue Basaglar 25 units AMStart Novolog 10 units with each mealStart Jardiance, side effects were discussed including but not limited to necrotizin g fascitis, recurrent UTIs, dehydratio n and candidiasi sEndocrino logy. OV 07/20/2024L abs 06/21/2024 HBA1C 6.8%Start Metformin, Lactic acidosis and GI side effects were discussed. DM diet Leukocytosis 378831195 D 72.829 257421 OV 10/31/2024M eds?Smokin g?Recheck Mammography abnormal 168 051051 R92.8 95907 MMG 10/25/2024, [place] 11/18/2024M anaged by her gynecologi st [id number] Sheng Sanders MD [facility] [address] [address] 02/16/2025 11:46:02 02/16/2025 13:23:20 Ganglion cyst of left wrist 9904914314 90383 M67.141 1907261 Volar radialDOS 02/02/25 Nicotine dependence 5629 4008 F17.200 Cellulitis of left wrist 5783766720 1390179 L03.114 8916281359 cont antibiotic slocal wound care Health Concerns Section Related Observation LastModified by Organization Detai ls LastModified Time None Recorded Concern Status LastModified by Organization Details LastModified Time None Recorded Advance Directives Directive N: Payers Insurance Date Sequence Insurance Name Policy Number Policy Lozoya Covered Member ID Lozoya Member ID Guarantor Name 12/03/2024 1 [place] Ronda Morris [id number] Ronda Arturo 12/03/2024 [place] [facility] - [facility] Rondacody Morris [id number] Ronda Morris 10/29/2021 1 [facility] (MEDICARE SUPPLEMENT) Ronda Morris [id number] Ronda Morris 12/07/2024 2 [place] WHEN MEDICARE OR MEDICARE REPLACEMENT PRIMARY) Ronda Morris [id number] Ronda Morris Notes Date Note Type Note Provider Name and Address Organization Details Recorded Time 08/22/2024 text/html Wrist/HandReport ed by PatientHPIFor associated symptoms, patient reportsweakness,tingli ng,swelling,popping/cl icking, andradiating to thumb/index/middlebut reportsno numbness,no redness,no warmth,no ecchymosis,no catching/locking,no buckling,no grinding,no instability,no drainage,no fever,no chills,no weight loss, andno change in bowel/bladder habits. For location, patient reportsleft,deep,radia l, andvolar. For quality, patient reportsaching,gnawing, throbbing,deep, andconstant. For severity, patient reportsmoderate. For duration, patient reportscontinuous since onset. For timing, patient reportsabrupt. For context, patient reportsoveruseandatrau matic. For alleviating factors, patient reportsnothing helps. For aggravating factors, patient reportslifting,carryin g,pushing/pulling,farrowing worker ping,grasping,squeezin g,rom,computer use,changing clothes,daytime,cold weather, anddamp weather. For previous surgery, patient reportsnone. For prior imaging, patient reportsnone. For previous injections, patient reportsnone. For previous pt, patient reportsnone. Sheng Sanders MD [address] [place], [address], [place] [facility] 08/22/2024 16:47:22 09/23/2024 text/html Diabetes F/URepo rted by PatientHPIFor associated symptoms, patient reportsweight gain (2 lbs)but reportsno weight loss,no dizziness,no sweats,no headaches,no confusion,no increased thirst,no increased appetite,no increased urination,no blurred vision,no numbness of feet, andno calluses on feet. For review finger sticks, patient reportsfastin. For labs, patient reportslast a1c result: 11.2%. For context, patient reportstaking aspirin daily,not missing doses of medications, andno side effects from medications.ROS as noted in the HPI Just a medical clearance for surgeryHe just put me on a new one Ms Morris needs preoperative evaluation for L. CTS surgery. She denies any SOB or chest pain, she can walk up a flight of stairs without any difficulty. She also has no urinary symptoms. Kirk Lu MD Attn: Accounting,[address] [facility], [place], [address], [facility] 09/23/2024 11:36:40 10/31/2024 text/html Diabetes F/URepo rted by PatientHPIFor context, patient reportshome blood sugar range low (below 70) (50-60's middle of the night)but reportsseeing eye doctor regularly,checking feet regularly,taking aspirin daily,not missing doses of medications, andno side effects from medications. For associated symptoms, patient reportsweight loss (3 lbs)but reportsno weight gain,no dizziness,no sweats,no headaches,no confusion,no increased thirst,no increased appetite,no increased urination,no blurred vision,no numbness of feet, andno calluses on feet. For review finger sticks, patient reportsfastin's. For labs, patient reportslast a1c result: 11.2%.ROS as noted in the HPI It has been doing okay Ms Morris reports low BS in the middle of the night and during the day, she is tolerating her Ozempic. She denies and signs or symptoms of an infection. Kirk Lu MD Attn: Accounting,[address] [facility], [place], [address], [facility] 10/31/2024 10:04:36 12/06/2024 text/html Diabetes F/URepo rted by PatientHPIFor associated symptoms, patient reportsweight loss (4 lbs)but reportsno weight gain,no dizziness,no sweats,no headaches,no confusion,no increased thirst,no increased appetite,no increased urination,no blurred vision,no numbness of feet, andno calluses on feet. For labs, patient reportslast a1c result: 6.9%. For context, patient reportsnormal range of home blood sugars (in the low 100s),seeing eye doctor regularly,checking feet regularly,taking aspirin daily,not missing doses of medications, andno side effects from medications.ROS as noted in the HPI I think it was just a follow upHe wants me to go back in 6 monthsI don't like the vial Seen by the biomedical equipment specialist on 11/01/2024; Basaglar 20, Novolog 7 and Metformin BID. She would like her Novolog changed to a pen. She had an abnormal mammogram that was ordered by her water and fire technician on 10/25/2024 and a follow-up ultrasound on 11/18/2024. The plan is follow-up study in 6 months Kirk Lu MD Attn: Accounting,[address] [facility], [place], [address], [facility] 12/06/2024 13:50:42 02/16/2025 text/html Fracture/Post-Op F/UReported by PatientHPIFor patient is currently in a, patient reportssplint. For swelling, patient reportsmild. For pain, patient reportsmild. For cast problems, patient reportsno. For wound problems, patient reportsno. For numbness, patient reportsimproving. For weakness, patient reportsimproving. For tingling, patient reportsnone. DOS 02/02/2025 Sheng Sanders MD [address] [place], [address], [place] [facility] 02/16/2025 12:19:45 OBGyn Episode No OBEpisode recorded.
== END 2025-03-17 10:46 | disposition home or self-care (01) ==
PROVIDERS: Emergency Provider Registered Nurse; PCP Internal Medicine Infectious Disease
DX: S91.205A Unspecified open wound of left lesser toe(s) with damage to nail, initial encounter (principal); X58.XXXA Exposure to other specified factors, initial encounter; F17.290 Nicotine dependence, other tobacco product, uncomplicated; J45.909 Unspecified asthma, uncomplicated; I10 Essential (primary) hypertension; K21.9 Gastro-esophageal reflux disease without esophagitis; F31.9 Bipolar disorder, unspecified
CPT/HCPCS: 99213; G0463